=== PATIENT | female | born 1950 | race Asian ===

== ENCOUNTER 2023-09-12 22:36 | Inpatient (IN) | payer OTHER, SELFPAY ==
[2023-09-12] VITALS (7 sets, daily range): BP systolic 103–150; BP diastolic 43–54; BMI 32.4; BMI 33.3
[2023-09-12 18:40] LABS: % Basophils 0.3 % (0-2); % Eosinophils 1.1 % (0-6); % Immature Granulocytes 0.2 % (0-0.5); % Monocytes 7.1 % (1.7-9.3); % Neutrophils 61.3 % (42.2-75.2); Absolute Eosinophils 0.1 10^3/uL (0-0.7); Absolute Monocytes 0.5 10^3/uL (0.1-0.6); Absolute Neutrophils 4.1 10^3/uL (1.4-6.5); Hematocrit 28.4 % (37.0-47.0); Hemoglobin 9.5 g/dL (12.0-16.0); Mean Corp Hgb Conc. 33.5 g/dL (33.0-37.0); Mean Corpuscular Hgb 28.8 pg (27.0-31.0); Mean Corpuscular Volume 86.1 fL (81.0-99.0); Mean Platelet Volume 10.5 fL (7.4-10.4); Nucleated Red Blood Cells % 0 %; Platelet Count 191 10^3/uL (130-400); Red Cell Dist. Width 13.8 % (11.5-14.5); White Blood Cell Count 6.6 10^3/uL (4.8-10.8)
--- NOTE | 2023-09-12 18:41 | ED.GENMED ---
History of Present Illness
<Brittaney Ayala PA-C - Last Filed: 09/13/23 18:23>
General
Chief Complaint: Chest Pain
Source: patient
Exam Limitations: none
Time Seen by Provider: 09/12/23 18:28
Nursing documentation reviewed up to this point in time: agreed with
Travel History
Have you had any contact with someone who has COVID-19?: No
Do you have any symptoms of coronavirus? Fever > 100 degrees, chills, cough, shortness of breath, sore throat, loss of taste or smell, muscle aches, or headache?: No
History of Present Illness
History of Present Illness:
This is a 73-year-old female with a past medical history of A-fib, CHF, insulin dependent diabetes, CAD, who is presenting to emergency department today with midsternal chest pain that started at 5 PM today. Patient reports that the pain is
constant and is a 5-6 out of 10 in severity. Patient has no associated shortness of breath, back pain, nausea, vomiting, abdominal pain, syncopal episodes. Patient states that she does have chest pain with exertion and the pain did come on when
she was walking up the stairs today. She thought this could be her typical chest pain however the pain persisted and did not resolve with rest. She took a aspirin and a nitro which provided her with some relief but her pain still persisted. She
denies recent URI symptoms, recent hospitalizations, recent illnesses. She states that she is usually active and does go to the gym, she denies recent long distance travel, recent periods of immobilization, exogenous estrogen, history of cancer.
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
Past History
<Brittaney Ayala PA-C - Last Filed: 09/13/23 18:23>
Past History
ED Past Medical History: CAD, HTN, Hypercholesterolemia and IDDM
ED Past Surgical History: Cardiac (stents) and Other (Lumbar spinal fusion)
Social History
Tobacco: Non-smoker
Alcohol: None
Drug: None
Living: with family
Family History
Family History: Hypertension and Other (father with a stroke)
Review of Systems
<Brittaney Ayala PA-C - Last Filed: 09/13/23 18:23>
Review of Systems
All Other Systems: ROS reviewed and negative except as documented in HPI and ROS
Phy Exam
<Brittaney Ayala PA-C - Last Filed: 09/13/23 18:23>
Physical Exam
Physical Exam:
General: Patient is well-appearing and is no acute distress
Skin: Warm and dry, no rashes or lesions
Cardiac: Bradycardia, otherwise regular rhythm, no murmurs
Pulm: Normal respiratory effort, no wheezes, rales, or rhonchi. Lung sounds equal on both sides.
Abdomen: No pulsatile abdominal mass, no tenderness to palpation
Peripheral vascular: 2+ dorsalis pedis and posterior tibial pulses bilaterally. No lower extremity edema.
Neuro: Alert and oriented x 3. Cranial nerves II through XII intact. No involuntary movements noted.
Scores
<Brittaney Ayala PA-C - Last Filed: 09/13/23 18:23>
Heart Score for Chest Pain Patients
STEMI patient?: No
History: Highly Suspicious
ECG: Normal
Age: >/= 65 years
Risk Factors: >/= 3 Risk Factors or History of CAD
Troponin: </= Normal Limit
Heart Score for Chest Pain Patients: 6
Heart Score Risk: 20.3% MACE over next 6 weeks
Course
<Brittaney Ayala PA-C - Last Filed: 09/13/23 18:23>
Orders/Labs/Results
Orders:
Orders
09/12/23 Dinner
Cholesterol Lowering
At Your Request: Limited Participation
Does patient need a safe tray?: No
Cholesterol Lowering: Sodium, 2 Gram
1800 morris/15 CHO Diabetic
09/12/23 18:19
Electrocardiogram (*1) Urgent
Reason for Study: Chest Pain
EKG- Treatment ONCE
09/12/23 18:26
Complete Blood Count/With Diff Urgent
Comprehensive Metabolic Panel Urgent
Prothrombin Time Urgent
Troponin I Urgent
09/12/23 18:57
CR Chest - 2 Views Urgent
Comment:
Reason For Exam: chest pain
09/12/23 19:07
Electrocardiogram (*1) Urgent
Reason for Study: Chest Pain
EKG- Treatment ONCE
Nitroglycerin Sublingual [Nitrostat (Sublingual)] 0.4 mg SL NOW STA
09/12/23 20:04
Troponin I Urgent
09/12/23 20:06
ECG [Electrocardiogram (*1)] Urgent
Reason for Study: Chest Pain
EKG- Treatment ONCE
09/12/23 21:20
CARDIOLOGY CONSULT Urgent
Consulting Provider: Markus Amin
Was physician already notified: Yes
Heparin 4,000 units IV NOW STA
Nursing to Place Non Medication Order As Directed
Physician Order: PTT 6 hours after initial start of Heparin infusion
Above order entered?: Yes
09/12/23 21:30
Heparin 12910 Units/250 ml 25,000 units in 250 ml IV PER PROTOCOL
Weight to be used for heparin protocol in kilograms (kg):: 72.8
Protocol:: Cardiac Tx/Acute Coronary
PTT Goal Range to be used:: PTT 73 to 111 seconds
Order type:: Initial
INITIAL Infusion Dose (UNITS/KG/hr) & then follow protocol:: 12 units/kg/hr
Infusion Dose in UNITS/hr & then follow protocol (UNITS/hr):: 850
INFUSION RATE in mL/hr & then follow protocol (mL/hr):: 8.5
PTT less than or equal to 64 seconds:: Increase rate by 200 units/hr (+ 2 mL/hr)
PTT 64.1 to 72.9 seconds:: Increase rate by 100 units/hr (+ 1 mL/hr)
PTT 73 to 111 seconds:: Target Range. No change in rate.
PTT 111.1 to 130.9 seconds:: Decrease rate by 100 units/hr (- 1 mL/hr)
PTT 131 to 199.9 seconds:: HOLD for 1 hr. Then decrease rate by 200 units/hr (- 2 mL/hr)
PTT greater than or equal to 200 seconds:: HOLD for 2 hrs & Notify Provider. Then decrease by 200 units/hr (-
2 mL/hr)
Lab follow-up:: Each change, PTT q6h until 2 consecutive are therapeutic. Then PTT
daily.
09/12/23 21:38
PTT Urgent
Comment: Obtain baseline before beginning heparin infusion if not already collected
09/12/23 22:00
Flush (0.9% Sodium Chloride) [Flush (Nss)] See Dose Instructions IV PER PROTOCOL
09/12/23 22:08
Admit/Transfer Patient As Directed
Co-Sign Provider:
Level of Care: Inpatient admission
Assign to:: Telemetry
Physician / Group: eliza romero
Diagnosis: cp concern acs uncontrol dm2
Reason for Telemetry: Chest Pain syndromes
Date to Stop Telemetry: 09/14/23
Time to Stop Telemetry: 11:00
Reason for Hospitalization: cp concern acs uncontrol dm2
Expected length of stay greater than two midnights?: Yes
ELOS- Estimated Length of Stay in days: 3
I certify the patient meets the requirements for IP care: Yes
Code Status As Directed
Resuscitation Status: Full Code
09/12/23 23:04
Acetaminophen [Tylenol] 650 mg PO Q4HPRN PRN
Dextrose 50%-Water [Dextrose 50% Syringe] 12.5 grams IV [id number] PRN
Glucagon [GlucaGen] 1 mg IM PRN PRN
09/12/23 23:04
VTE Contraindication Routine
VTE Mechanical Device Contraindication: Medical Contraindication
Pharmocologic Contraindication: Medical Contraindication
Comment: pt on iv heparin
Activity As Directed
Activity Level: As Tolerated
Bedside Glucose Monitoring As Directed
Frequency: AC&HS
Comment: Change to q6h if pt on TPN, tube feeding or not eating
Vital Signs As Directed
Frequency: Per unit guidelines
Ot Eval And Treat Routine
Pt Eval And Treat Routine
Activity Level: As Tolerated
09/13/23 00:39
Troponin I Q6H
09/13/23 04:21
Cardiovascular Evaluation IN AM
Complete Blood Count/With Diff IN AM
Comprehensive Metabolic Panel IN AM
Glycohemoglobin (HgbA1c) IN AM
PTT Urgent
Troponin I Q6H
09/13/23 07:30
Insulin Aspart Corrective Low [Novolog Flexpen-Low Resistance] See Protocol SC AC
09/13/23 08:00
Aspirin Low Dose EC [Aspir Low (Enteric Coated)] 81 mg PO DAILY
Candesartan Cilexetil [Atacand] 4 mg PO BID
Carvedilol [Coreg] 25 mg PO BID
Cholecalciferol (Vitamin D3) [VITAMIN D3 (cholecalciferol)] 25 mcg PO DAILY
Doxazosin Mesylate [Cardura] 2 mg PO DAILY
Ferrous Sulfate [Feosol] 325 mg PO Daily
Multivitamin [Theragran] 1 tablet PO DAILY
Pantoprazole [Protonix] 40 mg PO DAILY
Verapamil Extended Release [Calan Extended Release] 240 mg PO DAILY
09/13/23 18:00
Rosuvastatin Calcium [Crestor] 40 mg PO QPM
09/13/23 22:00
Gabapentin [Neurontin] 100 mg PO HS
Insulin Detemir Levemir [Levemir] 16 units Subcutaneous Insulin Syringe [Syringe-Insulin] 0 unit SC HS
09/14/23 06:00
Complete Blood Count/With Diff IN AM
Comprehensive Metabolic Panel IN AM
09/14/23 11:00
DC Protocol for Telemetry ONCE
09/15/23 06:00
Complete Blood Count/With Diff IN AM
Comprehensive Metabolic Panel IN AM
Abnormal Lab Results
09/12/23
18:26
RBC 3.30 L 10^6/uL
(4.20-5.40)
Hgb 9.5 L g/dL
(12.0-16.0)
Hct 28.4 L %
(37.0-47.0)
MPV 10.5 H fL
(7.4-10.4)
PT 15.0 H Sec
(11.4-14.6)
BUN 27 H mg/dl
(7-17)
Creatinine 1.6 H mg/dL
(0.6-1.0)
Glucose 269 H mg/dl
(70-99)
AST 39 H U/L
(14-36)
Total Protein 5.7 L g/dl
(6.3-8.2)
Albumin 3.0 L g/dl
(3.5-5.0)
09/12/23 18:26
09/12/23 18:26
Vital Signs
Initial and Last Documented VS:
Initial Vital Signs
Temp Pulse Resp BP Pulse Ox
97.7 F 50 16 114/49 100
09/12/23 18:22 09/12/23 18:22 09/12/23 18:22 09/12/23 18:22 09/12/23 18:22
Last Documented Vital Signs
Temp Pulse Resp BP Pulse Ox
97.6 F 43 18 104/42 97
09/13/23 15:00 09/13/23 15:00 09/13/23 15:00 09/13/23 15:00 09/13/23 15:00
<Cameron Wheeler MD - Last Filed: 09/12/23 21:30>
Orders/Labs/Results
Orders:
Orders
09/12/23 Dinner
Cholesterol Lowering
At Your Request: Limited Participation
Does patient need a safe tray?: No
Cholesterol Lowering: Sodium, 2 Gram
1800 morris/15 CHO Diabetic
09/12/23 18:19
Electrocardiogram (*1) Urgent
Reason for Study: Chest Pain
EKG- Treatment ONCE
09/12/23 18:26
Complete Blood Count/With Diff Urgent
Comprehensive Metabolic Panel Urgent
Prothrombin Time Urgent
Troponin I Urgent
09/12/23 18:57
CR Chest - 2 Views Urgent
Comment:
Reason For Exam: chest pain
09/12/23 19:07
Electrocardiogram (*1) Urgent
Reason for Study: Chest Pain
EKG- Treatment ONCE
Nitroglycerin Sublingual [Nitrostat (Sublingual)] 0.4 mg SL NOW STA
09/12/23 20:04
Troponin I Urgent
09/12/23 20:06
ECG [Electrocardiogram (*1)] Urgent
Reason for Study: Chest Pain
EKG- Treatment ONCE
09/12/23 21:20
CARDIOLOGY CONSULT Urgent
Consulting Provider: Markus Amin
Was physician already notified: Yes
Heparin 4,000 units IV NOW STA
Nursing to Place Non Medication Order As Directed
Physician Order: PTT 6 hours after initial start of Heparin infusion
Above order entered?: Yes
09/12/23 21:30
Heparin 30006 Units/250 ml 25,000 units in 250 ml IV PER PROTOCOL
Weight to be used for heparin protocol in kilograms (kg):: 72.8
Protocol:: Cardiac Tx/Acute Coronary
PTT Goal Range to be used:: PTT 73 to 111 seconds
Order type:: Initial
INITIAL Infusion Dose (UNITS/KG/hr) & then follow protocol:: 12 units/kg/hr
Infusion Dose in UNITS/hr & then follow protocol (UNITS/hr):: 850
INFUSION RATE in mL/hr & then follow protocol (mL/hr):: 8.5
PTT less than or equal to 64 seconds:: Increase rate by 200 units/hr (+ 2 mL/hr)
PTT 64.1 to 72.9 seconds:: Increase rate by 100 units/hr (+ 1 mL/hr)
PTT 73 to 111 seconds:: Target Range. No change in rate.
PTT 111.1 to 130.9 seconds:: Decrease rate by 100 units/hr (- 1 mL/hr)
PTT 131 to 199.9 seconds:: HOLD for 1 hr. Then decrease rate by 200 units/hr (- 2 mL/hr)
PTT greater than or equal to 200 seconds:: HOLD for 2 hrs & Notify Provider. Then decrease by 200 units/hr (-
2 mL/hr)
Lab follow-up:: Each change, PTT q6h until 2 consecutive are therapeutic. Then PTT
daily.
09/12/23 21:38
PTT Urgent
Comment: Obtain baseline before beginning heparin infusion if not already collected
09/12/23 22:00
Flush (0.9% Sodium Chloride) [Flush (Nss)] See Dose Instructions IV PER PROTOCOL
09/12/23 22:08
Admit/Transfer Patient As Directed
Co-Sign Provider:
Level of Care: Inpatient admission
Assign to:: Telemetry
Physician / Group: eliza romero
Diagnosis: cp concern acs uncontrol dm2
Reason for Telemetry: Chest Pain syndromes
Date to Stop Telemetry: 09/14/23
Time to Stop Telemetry: 11:00
Reason for Hospitalization: cp concern acs uncontrol dm2
Expected length of stay greater than two midnights?: Yes
ELOS- Estimated Length of Stay in days: 3
I certify the patient meets the requirements for IP care: Yes
Code Status As Directed
Resuscitation Status: Full Code
09/12/23 23:04
Acetaminophen [Tylenol] 650 mg PO Q4HPRN PRN
Dextrose 50%-Water [Dextrose 50% Syringe] 12.5 grams IV [id number] PRN
Glucagon [GlucaGen] 1 mg IM PRN PRN
09/12/23 23:04
VTE Contraindication Routine
VTE Mechanical Device Contraindication: Medical Contraindication
Pharmocologic Contraindication: Medical Contraindication
Comment: pt on iv heparin
Activity As Directed
Activity Level: As Tolerated
Bedside Glucose Monitoring As Directed
Frequency: AC&HS
Comment: Change to q6h if pt on TPN, tube feeding or not eating
Vital Signs As Directed
Frequency: Per unit guidelines
Ot Eval And Treat Routine
Pt Eval And Treat Routine
Activity Level: As Tolerated
09/13/23 00:39
Troponin I Q6H
09/13/23 04:21
Cardiovascular Evaluation IN AM
Complete Blood Count/With Diff IN AM
Comprehensive Metabolic Panel IN AM
Glycohemoglobin (HgbA1c) IN AM
PTT Urgent
Troponin I Q6H
09/13/23 07:30
Insulin Aspart Corrective Low [Novolog Flexpen-Low Resistance] See Protocol SC AC
09/13/23 08:00
Aspirin Low Dose EC [Aspir Low (Enteric Coated)] 81 mg PO DAILY
Candesartan Cilexetil [Atacand] 4 mg PO BID
Carvedilol [Coreg] 25 mg PO BID
Cholecalciferol (Vitamin D3) [VITAMIN D3 (cholecalciferol)] 25 mcg PO DAILY
Doxazosin Mesylate [Cardura] 2 mg PO DAILY
Ferrous Sulfate [Feosol] 325 mg PO Daily
Multivitamin [Theragran] 1 tablet PO DAILY
Pantoprazole [Protonix] 40 mg PO DAILY
Verapamil Extended Release [Calan Extended Release] 240 mg PO DAILY
09/13/23 18:00
Rosuvastatin Calcium [Crestor] 40 mg PO QPM
09/13/23 22:00
Gabapentin [Neurontin] 100 mg PO HS
Insulin Detemir Levemir [Levemir] 16 units Subcutaneous Insulin Syringe [Syringe-Insulin] 0 unit SC HS
09/14/23 06:00
Complete Blood Count/With Diff IN AM
Comprehensive Metabolic Panel IN AM
09/14/23 11:00
DC Protocol for Telemetry ONCE
09/15/23 06:00
Complete Blood Count/With Diff IN AM
Comprehensive Metabolic Panel IN AM
Abnormal Lab Results
09/12/23
18:26
RBC 3.30 L 10^6/uL
(4.20-5.40)
Hgb 9.5 L g/dL
(12.0-16.0)
Hct 28.4 L %
(37.0-47.0)
MPV 10.5 H fL
(7.4-10.4)
PT 15.0 H Sec
(11.4-14.6)
BUN 27 H mg/dl
(7-17)
Creatinine 1.6 H mg/dL
(0.6-1.0)
Glucose 269 H mg/dl
(70-99)
AST 39 H U/L
(14-36)
Total Protein 5.7 L g/dl
(6.3-8.2)
Albumin 3.0 L g/dl
(3.5-5.0)
09/12/23 18:26
09/12/23 18:26
Vital Signs
Initial and Last Documented VS:
Initial Vital Signs
Temp Pulse Resp BP Pulse Ox
97.7 F 50 16 114/49 100
09/12/23 18:22 09/12/23 18:22 09/12/23 18:22 09/12/23 18:22 09/12/23 18:22
Last Documented Vital Signs
Temp Pulse Resp BP Pulse Ox
97.6 F 43 18 104/42 97
09/13/23 15:00 09/13/23 15:00 09/13/23 15:00 09/13/23 15:00 09/13/23 15:00
<Brittaney Ayala PA-C - Last Filed: 09/13/23 18:23>
MDM/Problems Addressed
Differential Diagnosis Includes:
Differentials include ACS, GERD, pneumonia, pneumothorax, musculoskeletal sprain/strain
MDM/Problems Addressed:
chest pain
Chronic conditions affecting care:
Coronary artery disease, A-fib, CHF, hyperlipidemia, renal insufficiency, diabetes
Acute Exacerbation and/or Progression of Chronic Illness:
coronary artery disease
<Brittaney Ayala PA-C - Last Filed: 09/13/23 18:23>
*Pulse Oximetry
Patient hypoxic: no
*EKG
Interpreted by ED Provider?: Yes
EKG Intrepretation Date: 09/12/23
Interpretation: abnormal
Comparison EKG: changes noted (new junctional rhythm)
Heart Rate: 48
Rate: bradycardiac
Rhythm: junctional
[place]: normal axis
Interval: normal interval and normal QT interval
QRS Pattern: normal QRS
Ischemia: no ischemia
*Vacuum Technician Interpretation
Rate: bradycardiac
Interpretation: abnormal
Rhythm: junctional
*Critical Care Note
Total Time (30-74mins, 75-104mins- exclusive of procedures): Not Applicable
Data Reviewed
Review of Other/Old Records Reveals: Records (Reviewed ER physician documentation from 05/25/2021), Discharge Summary (Reviewed discharge summary from 03/27/2021) and Other (Reviewed echocardiogram from 07/27/2021)
Prescriptions/Medications Considered But Not Given:
n/a
Further Testing Considered But Not Given:
n/a
ED Attending Note
<Brittaney Ayala PA-C - Last Filed: 09/13/23 18:23>
-
Portions of this chart may have been created with voice recognition software.� Occasional wrong word or��sound alike� substitutions may have occurred due to the inherent limitations of voice recognition software.
<Cameron Wheeler MD - Last Filed: 09/12/23 21:30>
ED Attending Note
Patient seen and examined by attending physician: Yes
ED Attending Note:
HPI: 73-year-old female with a past medical history of hypertension, hyperlipidemia, diabetes, CHF, CAD status post stents who presents to the emergency department accompanied by family for evaluation of chest pain. Patient reports that she has had
intermittent chest pains over the past few weeks�she says that she notices a 'discomfort' substernal particularly when she goes to the gym to do light exercise. She says that it typically improves with rest. She says that today she walked up a
flight of stairs and developed substernal chest pain once again but it did not improve with rest and so she called EMS to bring to the hospital. She was given 324 mg chewable aspirin and 1 nitroglycerin prior to arrival and did have some relief of
her chest pain. She denies any associated shortness of breath or palpitations. She denies any nausea, vomiting, diaphoresis. She denies any other complaints. She says that she follows with Dr. Sanon for cardiology.
ROS: Positive for chest pain; negative for shortness of breath, palpitations, dizziness, diaphoresis, nausea, vomiting
Physical exam:
General: Awake, alert, oriented x3; no acute distress
Head: Normocephalic, atraumatic
Eyes: Conjunctiva normal, sclera anicteric
Throat: Airway intact, handling secretions
Neck: Trachea midline, supple without meningismus
Lungs: Clear to auscultation bilaterally, no wheezing, rales, rhonchi
Heart: Regular rate and rhythm, no murmurs, gallops, or rubs
Abd: Soft, non distended, nontender
Neuro: Cranial nerves grossly intact, speech fluid
Skin: no rash
Extremities: No edema in extremities, equal pulses in all extremities
Differential diagnosis: ACS/unstable angina, GERD, costochondritis, pulmonary embolism less likely based on full clinical picture
Medical decision makin-year-old female presents for evaluation of worsening exertional chest pains tonight had prolonged episode that improved with nitroglycerin. Vital signs here notable for bradycardia otherwise unremarkable. Physical exam
as above. EKG shows a junctional bradycardia rate in the 40s. No STEMI. She received aspirin prehospital. Plan to place an IV check labs including CBC and CMP, coags, serial troponins. Will check chest x-ray. Monitor closely reassess after the
above.
Chronic conditions affecting care: CAD�high risk for ACS
Acute exacerbation or progression of chronic illness: N/A
History source: Patient, spouse, son
Data reviewed: Records, prior labs
Medications/testing considered: N/A
Social determinants of health: N/A
Discussion with other providers: Discussed with cardiology, discussed with hospitalist
Disposition: Admission indicated
Update:
Patient's heart rate improved to the 70s repeat EKG shows sinus rhythm. Continue to monitor.
Labs reviewed: CBC shows stable anemia, CMP shows creatinine 1.6 which is stable. Troponins have been negative x 2. Chest x-ray reviewed by me no acute disease. Clinical concern will be for unstable angina with worsening exertional symptoms.
Discussed case with cardiology will start patient on heparin infusion admit to the hospital service. Case discussed with hospitalist for admission.
Discharge Plan
Departure
Patient Disposition: Admit
Date of Disposition: 09/12/23
Time of Disposition: 21:22
Admit to doctor: Kenneth
Presentation/result/management discussed w/ accepting MD/DO: Hospitalist
Discharge Problem:
Unstable angina
Interventions
Interventions:
*Risk Screen - Suicide Last Done: 09/12/23 23:39
*General Assessment Last Done: 09/12/23 18:25
*Neglect/Abuse Screening Last Done: 09/12/23 18:25
ED- Fall Risk Assessment Last Done: 09/12/23 19:15
*ED COVID-19 Vaccine History Last Done: 09/12/23 23:39
*Nursing Disposition Last Done: 09/12/23 22:45
ED- Cardiac Assessment Last Done: 09/12/23 19:15
Discharge Date and Time
Discharge Date/Time: 09/12/23 22:57
[2023-09-12 18:49] LABS: ALT (SGPT) 26 U/L (0-35); AST (SGOT) 39 U/L (14-36); Alkaline Phosphatase 96 U/L (38-126); Blood Urea Nitrogen 27 mg/dl (7-17); Calcium 8.6 mg/dl (8.4-10.2); Carbon Dioxide 22 mmol/L (22-30); Chloride 106 mmol/L (98-107); Estimated Creatinine Clearance 26 ml/min; Glucose 269 mg/dl (70-99); Potassium 4.1 mmol/L (3.5-5.1); Sodium 139 mmol/L (135-145); Total Bilirubin 0.4 mg/dl (0.2-1.3); Total Protein 5.7 g/dl (6.3-8.2); eGFR 33.42
[2023-09-12 18:59] LABS: Troponin I < 0.012 ng/ml
[2023-09-12 20:35] LABS: Troponin I < 0.012 ng/ml
[2023-09-12] MEDS: HEPARIN 4000 UNITS IV (21:41)
--- NOTE | 2023-09-12 21:41 | HPS.HSE ---
Addendum entered and electronically signed by Velia Barber MD 09/12/23 22:22:
Patient seen and examined independently with [employer] [employer] CONSULTANT. 73-year-old female past medical history of type 2 diabetes, CAD status post cardiac stents in 2005, hypertension, hyperlipidemia, chronic kidney disease, presenting with midsternal chest pain at 5 PM
today associate with exertion. Pain improved somewhat with nitroglycerin and aspirin. Patient has a history of nuclear stress test in 2020 showing small anterolateral reversible defect. She had repeat nuclear stress test in July conclusive
for ischemia. Patient appears to have possible unstable angina. Troponin negative. Trend troponins. Chest x-ray negative. EKG shows sinus rhythm with first-degree AV block without any ischemic changes. Heparin drip started. Check
echocardiogram. Cardiology consulted.
Patient is also been having labile blood sugars due to excessive oral diabetic medications in addition to insulin. Last night her blood sugar 50 and had to eat sugar. Blood sugars around 100 in the morning and around 180 in the evenings. Blood
sugar 269 here. Check hemoglobin A1c. Will hold all oral diabetic medications at this time given concern for hypoglycemia and rebounding hyperglycemia after taking sugar. Continue detemir 28 units in the morning, 16 units in the evening.
Continue insulin sliding scale. Will likely have to add Premeal insulin tomorrow.
Original Note:
Family Physician
-
Family Physician: Charles Key
Chief Complaint
-
Chest pain to back
History of Present Illness
73-year-old female complaining of midsternal chest pain that started at 5 PM today. She reports she has chest pain with exertion and pain developed when she was walking up the stairs but however persisted. She took nitroglycerin and aspirin with
some relief but pain was still present. She denies any recent fever, chills, URI. She reports she is taking metformin, Jardiance, Januvia, Levemir a.m. and p.m. and is having high and low blood sugars. She does not follow any diabetic diet. Last
night she had a blood sugar of 50 and had some sugar. This morning she felt her blood sugar was low again and drink 2 cups of lemonade with Naan. she follows with Dr. Barth from cardiology. She has past medical history of DM 2, CAD/cardiac
stents 2006 HTN, HLD, lumbar spinal fusion, chronic iron deficiency anemia.
Medical History
Past Medical History
Past Medical History: Reports Other (DM 2, CAD/cardiac stents 2005 HTN, HLD, lumbar spinal fusion, chronic iron deficiency anemia.)
Past Surgical History: Reports Other (Cholecystectomy, lumbar laminectomy, cardiac stents 2005)
Social History
Tobacco: Non-smoker
Alcohol: None
Drug: None
Personal:
Living: With Family
Employment: Retired
Family History
Family History: Other (Father CVA, mother asthma)
Allergies / Home Medications
Allergies reflects when Allergies were last updated in [facility].
Home Medications with original date entered in [facility]
Allergy/Medication List:
Allergies
Allergy/AdvReac Type Severity Reaction Status Date / Time
diphenhydramine HCl Allergy Unknown Verified 03/26/21 02:28
[From Benadryl]
Penicillins Allergy Unknown Verified 03/26/21 02:28
Sulfa (Sulfonamide Allergy Unknown Verified 03/26/21 02:28
Antibiotics)
Home Medications
insulin aspart U-100 100 unit/mL subcutaneous solution (Novolog U-100 Insulin aspart) 10 units SC BID Diabetes 06/24/13
candesartan 4 mg tablet 4 mg PO BID Blood pressure ##0 03/11/21
metformin 500 mg tablet 1,000 mg PO DAILY@0800 Diabetes 03/11/21
sitagliptin phosphate 50 mg tablet (Januvia) 100 mg PO DAILY Diabetes 03/11/21
ferrous sulfate 325 mg (65 mg iron) tablet (Iron (ferrous sulfate)) 325 mg PO Daily Supplement 03/25/21
carvedilol 12.5 mg tablet 25 mg PO BID 03/26/21
aspirin 81 mg tablet,delayed release 81 mg PO DAILY 09/12/23
cholecalciferol (vitamin D3) 25 mcg (1,000 unit) tablet (Vitamin D3) 25 mcg PO DAILY 09/12/23
doxazosin 2 mg tablet 2 mg PO DAILY 09/12/23
empagliflozin 10 mg tablet (Jardiance) 10 mg PO DAILY 09/12/23
furosemide 40 mg tablet (Lasix) 40 mg PO Q48H 09/12/23
gabapentin 100 mg capsule 100 mg PO HS 09/12/23
insulin detemir U-100 100 unit/mL (3 mL) subcutaneous pen (Levemir FlexPen) 28 unit SC BID 09/12/23
omeprazole 40 mg capsule,delayed release 40 mg PO DAILY 09/12/23
rosuvastatin 40 mg tablet (Crestor) 40 mg PO QPM 09/12/23
therapeutic multivitamin 1 tab PO DAILY 09/12/23
verapamil 240 mg tablet,extended release 240 mg PO DAILY 09/12/23
Review of Systems
-
History Source: Patient and Family
A 12 point ROS was completed and negative except as noted: Yes
Constitutional: Denies Fever or Chills
EENT: Denies Sore Throat or Runny Nose
Respiratory: Denies Cough or Trouble Breathing
Cardiac: Reports Chest Pain; Denies Diaphoresis, Palpitations or Syncope
Abdomen/GI: Denies Abdominal Pain, Nausea, Vomiting, Diarrhea, Constipated, Bloody Stools or Black Stools
: Denies Dysuria, Frequency, Flank Pain, Incontinence, Difficulty Voiding or Urgency
Musculoskeletal: Denies Joint Pain or Edema
Skin: Denies Itching or Rash
Neurological: Denies Dizzy, Headache or Weakness
Endocrine: Reports No Symptoms
Hematologic/Lymphatic: Reports No Symptoms
Psych: Reports Calm
Physical Exam
Vital Signs
Vital Signs
Temp Pulse Resp BP Pulse Ox
97.7 F 64 18 120/45 98
09/12/23 18:22 09/12/23 21:15 09/12/23 21:15 09/12/23 21:00 09/12/23 21:15
Physical Exam
General: Well Nourished, No Apparent Distress, Comfortable, Conversant and Pain (3 out of 10 midsternal to right shoulder blade); No Fever or Chills
HEENT: NormoCephalic, Anicteric, Moist mucous membranes, [place] Conjunctivae and No Ptosis
Respiratory: Clear; No Wheezes, Rales or Rhonchi
Cardiac: S1/S2 and Regular Rhythm; No Murmur, Rub, Gallop or Peripheral Edema
Breast: Deferred by me
GI: Soft, Non Tender, Non Distended, Normal Bowel Sounds and No Hepatosplenomegaly
Rectal: Deferred by Provider
Genito-urinary: Deferred by me
Musculoskeletal: No Clubbing, No Cyanosis and No Edema
Skin: Warm and Dry; No Rash
Neuro: AO x 3, No Motor Deficits and Nonfocal/grossly intact; No Slurred Speech, Facial Droop or Tremors
Psych: Calm
Laboratory Results
-
09/12/23 18:26
09/12/23 18:26
Laboratory Results
PT 15.0 Sec (11.4-14.6) H 09/12/23 18:26
INR 1.20 09/12/23 18:26
Total Bilirubin 0.4 mg/dl (0.2-1.3) 09/12/23 18:26
AST 39 U/L (14-36) H 09/12/23 18:26
ALT 26 U/L (0-35) 09/12/23 18:26
Alkaline Phosphatase 96 U/L (38-126) 09/12/23 18:26
Troponin I < 0.012 ng/ml 09/12/23 20:04
Impression/Plan
-
Impression/plan:
Admit to telemetry
#Chest pain concern for USA
CAD/cardiac stent Hx 2005
-Consult cardiology
-Trend troponins
-IV heparin drip
-Continue aspirin, beta-gigi
EKG: Sinus rhythm with first-degree AV block 68 bpm, QTc 452 MS
2D echo 04/27/2021: EF 70-75%, normal LVSF
HTN�benign
-Continue candesartan 4 mg twice daily, carvedilol 25 mg twice daily hold parameters HR less than 60
-Continue verapamil to 40 mg daily
#DM 2 with hyperglycemia uncontrolled/diabetic neuropathy
BS 269
Accu-Cheks with SSI, check HgbA1c
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
-Discussed diabetic diet with patient and family at bedside
-Oral diabetic meds Jardiance, Januvia, metformin
-Continue Levemir 28 units a.m., 16 units p.m. dinner
-Add SSI with meals low
-Continue gabapentin 100 mg at bedtime
#HLD
-Check lipid profile
-Continue Crestor 40 mg every afternoon
#Chronic anemia normocytic/iron deficiency anemia
Hgb 9.5 appears baseline
CKD stage IIIb�4
Creat 1.6 was 1.3 in 2020
DVT prophylaxis
Patient on IV heparin drip
Full code
[2023-09-12] MEDS: HEPARIN 25000 UNITS/250 ML IV (21:42)
[2023-09-12 21:53] LABS: APTT 30.8 Sec (23.4-35.0)
--- NOTE | 2023-09-12 23:30 | PTCARENOTE ---
Pt. admitted through E.D., AAO x 3, vs stable, 99% RA, NSR on monitor, Heparin gtt infusing, call alexander within reach.
[2023-09-13] VITALS (8 sets, daily range): BP systolic 103–175; BP diastolic 42–63; PULSE 63–95; O2SAT 99
[2023-09-13 01:28] LABS: Troponin I < 0.012 ng/ml
[2023-09-13 04:40] LABS: % Basophils 0.4 % (0-2); % Eosinophils 2.8 % (0-6); % Immature Granulocytes 0.3 % (0-0.5); % Lymphocytes 36.6 % (20.5-51.1); % Monocytes 7.2 % (1.7-9.3); % Neutrophils 52.7 % (42.2-75.2); Absolute Eosinophils 0.2 10^3/uL (0-0.7); Absolute Lymphocytes 2.9 10^3/uL (1.2-3.4); Absolute Monocytes 0.6 10^3/uL (0.1-0.6); Absolute Neutrophils 4.1 10^3/uL (1.4-6.5); Hematocrit 28.1 % (37.0-47.0); Hemoglobin 9.6 g/dL (12.0-16.0); Mean Corp Hgb Conc. 34.2 g/dL (33.0-37.0); Mean Corpuscular Volume 84.9 fL (81.0-99.0); Mean Platelet Volume 10.4 fL (7.4-10.4); Nucleated Red Blood Cells % 0 %; Platelet Count 200 10^3/uL (130-400); Red Blood Cell Count 3.31 10^6/uL (4.20-5.40); Red Cell Dist. Width 13.8 % (11.5-14.5); White Blood Cell Count 7.8 10^3/uL (4.8-10.8)
[2023-09-13 05:06] LABS: ALT (SGPT) 27 U/L (0-35); AST (SGOT) 31 U/L (14-36); Albumin 3.1 g/dl (3.5-5.0); Alkaline Phosphatase 78 U/L (38-126); Blood Urea Nitrogen 27 mg/dl (7-17); Calcium 9.3 mg/dl (8.4-10.2); Carbon Dioxide 25 mmol/L (22-30); Chloride 108 mmol/L (98-107); Estimated Creatinine Clearance 24 ml/min; Glucose 148 mg/dl (70-99); HDL Cholesterol 29 mg/dl; LDL Cholesterol, Calculated 24 mg/dl; Potassium 3.9 mmol/L (3.5-5.1); Sodium 143 mmol/L (135-145); Total Bilirubin 0.4 mg/dl (0.2-1.3); Total Cholesterol 75 mg/dl (50-199); Triglyceride 112 mg/dl (10-149); Very Low Density Lipoprotein 22 mg/dl (0-30); eGFR 31.08
[2023-09-13 05:15] LABS: Troponin I < 0.012 ng/ml
[2023-09-13 05:28] LABS: APTT > 200 Sec (23.4-35.0)
[2023-09-13 08:05] LABS: Glucose - Point of Care 133 mg/dl (70-99)
--- NOTE | 2023-09-13 09:29 | CON.CAR ---
Addendum entered and electronically signed by Markus Amin MD 09/13/23 10:53:
Patient seen and examined in collaboration with HOT PACKER; agree with below.
-73-year-old female with known coronary artery disease (roto-stenting of the LAD May 2002, brachytherapy and restenting 2004, proximal RCA stent 2002, ramus PTCA 2004, and stent in proximal and mid LAD May 2012); t admitted with chest pain.
-Given known coronary artery disease and symptoms highly concerning for angina with radiation to bilateral shoulders (and has been getting exercise-limiting chest pain while exercising at the gym), patient will undergo cardiac catheterization on
Friday.
-Will consult Nephrology to help monitor renal function, given CKD; should likely hold candesartan for now.
-Continue heparin drip.
-Continue high-dose rosuvastatin.
-Continue carvedilol.
-Will update echocardiogram this admission.
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
Original Note:
Consultation
Consultation Request
Date/Time Consultation Requested: 09/12/23 21:20
Date/Time Consultation Performed: 09/13/23 09:30
Requesting Provider: Dr. Wheeler
Performing Provider: JOE Whitlock for Dr. Amin
Reason for Consultation: Chest pain
Medical History
-
Chief Complaint: Chest pain
History of Present Illness:
Lissette Noland is a 73-year-old female (known to Dr. Sanon, her primary financial institution treasurer), with coronary artery disease, hypertension, dyslipidemia, type 2 diabetes mellitus, and chronic kidney disease who presented to the emergency department the
chief complaint of chest pain. Her chest pain started on evening. She was at rest. It spontaneously resolved. She then had exertional chest pain walking up the steps later in the evening. She took nitroglycerin with some relief but did
not completely resolve. She also had some issues with hypoglycemia as well. She has been chest pain-free since arrival to the emergency department. She reports it is midsternal anterior either pressure or burning sensation. It will radiate into
her shoulders. She denies associated symptoms of nausea, diaphoresis, and shortness of breath.
Past Medical History
Past Medical History: CAD, HTN, Hypercholesterolemia, NIDDM and Renal Failure (CKD)
Past Surgical History: Cholecystectomy, Gynecological and Orthopedic
Social History
Tobacco: Non-Smoker
Alcohol: None
Drug: None
Personal:
Living: With Family
Family History
Family History: Reviewed & Not Pertinent
Allergies / Home Medications
Allergy/AdvReac Type Severity Reaction Status Date / Time
diphenhydramine HCl Allergy Unknown Verified 03/26/21 02:28
[From Benadryl]
Penicillins Allergy Unknown Verified 03/26/21 02:28
Sulfa (Sulfonamide Allergy Unknown Verified 03/26/21 02:28
Antibiotics)
Medication Instructions Recorded Confirmed Type
candesartan 4 mg tablet 4 mg PO BID Blood pressure ##0 03/11/21 09/12/23 History
metformin 500 mg tablet 1,000 mg PO DAILY@0800 Diabetes 03/11/21 09/12/23 History
sitagliptin phosphate 50 mg tablet 100 mg PO DAILY Diabetes 03/11/21 09/12/23 History
(Januvia)
ferrous sulfate 325 mg (65 mg 325 mg PO Daily Supplement 03/25/21 09/12/23 History
iron) tablet (Iron (ferrous
sulfate))
carvedilol 12.5 mg tablet 25 mg PO BID 03/26/21 09/12/23 Rx
Levemir FlexPen 16 units SC DAILY@18 09/12/23 09/12/23 History
aspirin 81 mg tablet,delayed 81 mg PO DAILY 09/12/23 09/12/23 History
release
cholecalciferol (vitamin D3) 25 25 mcg PO DAILY 09/12/23 09/12/23 History
mcg (1,000 unit) tablet (Vitamin
D3)
doxazosin 2 mg tablet 2 mg PO DAILY 09/12/23 09/12/23 History
empagliflozin 10 mg tablet 10 mg PO DAILY 09/12/23 09/12/23 History
(Jardiance)
furosemide 40 mg tablet (Lasix) 40 mg PO Q48H 09/12/23 09/12/23 History
gabapentin 100 mg capsule 100 mg PO HS 09/12/23 09/12/23 History
insulin detemir U-100 100 unit/mL 28 unit SC [facility] 09/12/23 09/12/23 History
(3 mL) subcutaneous pen (Levemir
FlexPen)
omeprazole 40 mg capsule,delayed 40 mg PO DAILY 09/12/23 09/12/23 History
release
rosuvastatin 40 mg tablet (Crestor) 40 mg PO QPM 09/12/23 09/12/23 History
therapeutic multivitamin 1 tab PO DAILY 09/12/23 09/12/23 History
verapamil 240 mg tablet,extended 240 mg PO DAILY 09/12/23 09/12/23 History
release
Review of Systems
-
History Source: Patient
All other systems: Negative unless noted
Constitutional: No Symptoms
EENT: No Symptoms
Respiratory: No Symptoms
Cardiac: No Symptoms
Abdomen/GI: No Symptoms
Physical Exam
Vital Signs
Temp Pulse Resp BP Pulse Ox
98.3 F 69 20 142/51 97
09/13/23 03:20 09/13/23 03:20 09/13/23 03:20 09/13/23 03:20 09/13/23 03:20
Lab Results
09/13/23 04:21
09/13/23 04:21
Troponin I < 0.012 ng/ml 09/13/23 04:21
Physical Exam
General: Well Developed, Well Nourished, No Apparent Distress and Comfortable
HEENT: Normocephalic, Anicteric and Moist Mucous Membranes
Respiratory: Clear and Non Labored Respirations
Cardiac: S1/S2 and Regular Rhythm
Breast: Deferred by me
GI: Soft, Non Tender, Non Distended and Normal Bowel Sounds
Rectal: Deferred by Provider
Genito-urinary: No Costovertebral Tender
Musculoskeletal: No Clubbing, No Cyanosis and No Edema
Skin: Warm and Dry
Neuro: AO x 3
Hematologic/Lymphatic: No Lymphadenopathy
Psych: Calm
Impression / Plan
-
Chest pain
-Troponin <0.012 x 4
-EKG is stable
-Normal perfusion on Lexiscan nuclear stress test 07/2022
Coronary artery disease
-Stents to p/mLAD, pRCA, and ramus
-Continue aspirin and beta-gigi
CKD, Stage IIIb, she follows with Dr. Luque in the outpatient setting
HTN
-Continue medical therapy
-Intolerance: Amlodipine (felt 'unwell')
Type 2 diabetes mellitus requiring insulin with fasting hyperglycemia, HgbA1c pending
Dyslipidemia, LDL 24 on rosuvastatin 40 mg
Iron deficiency anemia, chronic and stable
Data Reviewed
-
EKG: Report Reviewed by me (Sinus rhythm, first-degree AV block, rate 68)
Radiology: Report Reviewed by me (CXR: No acute cardiopulmonary process.)
Labs: Labs Reviewed by me
Old Records: Reviewed
[2023-09-13] MEDS: LEVEMIR 0.280000000000000027 UNITS SC (09:40)
[2023-09-13] MEDS: COREG 25 MG PO (09:41)
[2023-09-13] MEDS: ASPIR LOW (ENTERIC COATED) 81 MG PO (09:41)
[2023-09-13] MEDS: NOVOLOG FLEXPEN-LOW RESISTANCE SC (09:41)
[2023-09-13] MEDS: PROTONIX 40 MG PO (09:41)
[2023-09-13] MEDS: ATACAND 4 MG PO (09:42)
[2023-09-13] MEDS: FEOSOL 325 MG PO (09:42)
[2023-09-13] MEDS: CALAN EXTENDED RELEASE 240 MG PO (09:42)
[2023-09-13] MEDS: CARDURA 2 MG PO (09:43)
[2023-09-13] MEDS: VITAMIN D3 (cholecalciferol) 25 MCG PO (09:43)
[2023-09-13] MEDS: THERAGRAN 1 TABLET PO (09:43)
[2023-09-13 11:03] LABS: Glycohemoglobin (HgbA1c) 7.2 % (4.0-5.6)
--- NOTE | 2023-09-13 11:36 | PTCARENOTE ---
Lissette Noland, 418-2 bradied down as low as 36-40, several times otherwise in the 50s. BP 103/44. I let cardiology and hospitalist know. She is feeling it, low energy. Verapamil dced. Continuing to monitor.
[2023-09-13 12:01] LABS: Glucose - Point of Care 183 mg/dl (70-99)
--- NOTE | 2023-09-13 12:20 | W.PN.HOSP.TC ---
Today's Communication/Plan
-
Monitor on tele
DC verapamil
IV hep
ARB on hold
nephro eval
Assessment / Plan
Assessment / Plan
#Chest pain concern for USA
#CAD/cardiac stent Hx 2005
-Consult cardiology
-Trop flat.
-IV heparin drip
-Continue aspirin, beta-gigi
-repeat ECHO. Stress vs. Cath on friday
-nephro c/s
-appreciate cards recs
HTN�benign
-Verapamil stopped as with bradycardia
-cont coreg
-ARB held for now if plan for cath-await nephro input
#DM 2 with hyperglycemia uncontrolled/diabetic neuropathy
BS 189
Accu-Cheks with SSI, check HgbA1c
-Consult clinical trial educator
-Oral diabetic meds Valdo Ryan, metformin
-Continue Levemir 28 units a.m., 16 units p.m. dinner
-Add SSI with meals low
-Continue gabapentin 100 mg at bedtime
#HLD
-Check lipid profile
-Continue Crestor 40 mg every afternoon
#Chronic anemia normocytic/iron deficiency anemia
Hgb 9.5 appears baseline
CKD stage IIIb�4
Creat 1.6 was 1.3 in 2020
DVT prophylaxis
Patient on IV heparin drip
Full code
Anticipated Discharge: > 48 hours
Subjective/Interval History
-
Date of Service: September 13, 2023
denies chest pain this am
Objective Data
-
Labs:
Laboratory Results
24 09/13/23
04:21 13:00
WBC 7.8
Hgb 9.6 L
Hct 28.1 L
Plt Count 200
APTT > 200 H* Pending
Sodium 143
Potassium 3.9
Chloride 108 H
Carbon Dioxide 25
BUN 27 H
Creatinine 1.7 H
Glucose 148 H
Calcium 9.3
Total Bilirubin 0.4
AST 31
ALT 27
Alkaline Phosphatase 78
Vital Signs:
Vital Signs
Temp Pulse Resp BP Pulse Ox
97.5 F 46 18 103/44 95
09/13/23 11:00 09/13/23 11:00 09/13/23 11:00 09/13/23 11:00 09/13/23 11:00
I&O
09/12/23 09/13/23 09/14/23
06:59 06:59 06:59
Intake Total 360 / 360
Balance 360 / 360
Physical Exam
-
General: Well Developed and No Apparent Distress
HEENT: Normocephalic, Atraumatic and Moist Mucous Membranes
Respiratory: Clear to Auscultation
Cardiac: Regular Rhythm and S1/S2; Negative Murmur, Rub or Gallop
GI: Soft, Nontender, Nondistended and Normal Bowel Sounds; Negative Organomegaly
Rectal: Deferred by Provider
Musculoskeletal: No Clubbing, No Cyanosis and No Edema
Skin: Negative Rash
Neuro: Awake, AO x 3, No Motor Deficits and Nonfocal/Grossly Intact
Psych: Calm
[2023-09-13 13:33] LABS: APTT 89.4 Sec (23.4-35.0)
[2023-09-13] MEDS: NOVOLOG FLEXPEN-LOW RESISTANCE 1 UNITS SC ×2 (13:34→17:34)
[2023-09-13] MEDS: NITROSTAT (SUBLINGUAL) 0.400000000000000022 MG SL (14:14)
--- NOTE | 2023-09-13 14:24 | CM ---
Patient seen bedside.
IA completed.
Patient lives with spouse and son in a multilevel home.
Patient independent prior to admission without AD.
Patient does not drive.
Patient denies hx of VN or rehab.
Patient dneies home care needs, patient is aware of CM availability shoudl needs arise.
PCP: Dr Key
Pharmacy: [facility]
Plan:home no needs anticipated.
--- NOTE | 2023-09-13 14:43 | CON.MD ---
Consultation - Medical
-
Assessment
-unstable angina
-CAD
-CKD3a (1.2)
-DM2
-DEBBIE
-Anemia
-subnephrotic proteinuria
Plan
-stop ARB
-stop SGLT2i
-suspect current Cr is a consequence of SGLT2i initiation on top of ARB
-get august labs from PCP
-ok for Cath so long as Cr is stable or improved, especially given current USA symptoms
-bicarb IVF with cath
-patient understands risk of contrast nephropathy
-[id number]
[2023-09-13 17:14] LABS: Glucose - Point of Care 180 mg/dl (70-99)
[2023-09-13] MEDS: CRESTOR 40 MG PO (17:35)
[2023-09-13 19:02] LABS: APTT 115.6 Sec (23.4-35.0)
[2023-09-13 21:45] LABS: Glucose - Point of Care 173 mg/dl (70-99)
[2023-09-13] MEDS: NEURONTIN 100 MG PO (22:23)
[2023-09-13] MEDS: LEVEMIR 0.160000000000000003 UNITS SC (22:35)
[2023-09-14 02:27] LABS: % Basophils 0.5 % (0-2); % Eosinophils 2.4 % (0-6); % Immature Granulocytes 0.3 % (0-0.5); % Monocytes 6.4 % (1.7-9.3); % Neutrophils 54.4 % (42.2-75.2); Absolute Eosinophils 0.2 10^3/uL (0-0.7); Absolute Lymphocytes 3.1 10^3/uL (1.2-3.4); Absolute Monocytes 0.6 10^3/uL (0.1-0.6); Absolute Neutrophils 4.7 10^3/uL (1.4-6.5); Hematocrit 28.8 % (37.0-47.0); Hemoglobin 9.6 g/dL (12.0-16.0); Mean Corp Hgb Conc. 33.3 g/dL (33.0-37.0); Mean Platelet Volume 10.2 fL (7.4-10.4); Nucleated Red Blood Cells % 0 %; Platelet Count 195 10^3/uL (130-400); Red Blood Cell Count 3.31 10^6/uL (4.20-5.40); Red Cell Dist. Width 13.7 % (11.5-14.5); White Blood Cell Count 8.6 10^3/uL (4.8-10.8)
[2023-09-14 02:45] LABS: APTT 97.5 Sec (23.4-35.0)
[2023-09-14 03:08] LABS: ALT (SGPT) 23 U/L (0-35); AST (SGOT) 26 U/L (14-36); Albumin 3.3 g/dl (3.5-5.0); Alkaline Phosphatase 73 U/L (38-126); Blood Urea Nitrogen 27 mg/dl (7-17); Calcium 9.3 mg/dl (8.4-10.2); Carbon Dioxide 26 mmol/L (22-30); Chloride 110 mmol/L (98-107); Estimated Creatinine Clearance 24 ml/min; Glucose 77 mg/dl (70-99); Potassium 3.6 mmol/L (3.5-5.1); Sodium 139 mmol/L (135-145); Total Bilirubin 0.4 mg/dl (0.2-1.3); eGFR 31.08
[2023-09-14 03:45] VITALS: BP 146/61
[2023-09-14 07:00] VITALS: BP 154/62
[2023-09-14 07:23] LABS: Glucose - Point of Care 75 mg/dl (70-99)
[2023-09-14 08:33] LABS: APTT 93.7 Sec (23.4-35.0)
[2023-09-14] MEDS: CARDURA 2 MG PO (09:24)
[2023-09-14] MEDS: VITAMIN D3 (cholecalciferol) 25 MCG PO (09:24)
[2023-09-14] MEDS: NOVOLOG FLEXPEN-LOW RESISTANCE SC (09:24)
[2023-09-14] MEDS: ASPIR LOW (ENTERIC COATED) 81 MG PO (09:24)
[2023-09-14] MEDS: FEOSOL 325 MG PO (09:24)
[2023-09-14] MEDS: COREG 6.25 MG PO ×2 (09:25→19:12)
[2023-09-14] MEDS: PROTONIX 40 MG PO (09:25)
[2023-09-14] MEDS: LEVEMIR 0.280000000000000027 UNITS SC (09:26)
[2023-09-14] MEDS: THERAGRAN 1 TABLET PO (09:26)
--- NOTE | 2023-09-14 10:37 | W.PN.HOSP.TC ---
Today's Communication/Plan
-
N.p.o. past midnight for tentative cath in the morning
Carvedilol dose decreased
patient may need additional agents
DC ARB and SGLT2 inhibitor
Assessment / Plan
Assessment / Plan
#Chest pain concern for USA
#CAD/cardiac stent Hx 2005
# Bradycardia
-Consult cardiology
-Trop flat.
-IV heparin drip
-Continue aspirin, beta-gigi and reduce dose of carvedilol
-Echo in the morning. Cath in the morning pending creatinine
-nephro c/s
-appreciate cards recs
HTN�benign
-Verapamil stopped as with bradycardia
-cont coreg dose decreased. Continue to monitor on telemetry.
-ARB discontinued-restarted different blood pressure meds if needed.
-Can start Procardia
#DM 2 with hyperglycemia uncontrolled/diabetic neuropathy
Accu-Cheks with SSI, check [id number]-2.2
-Consult family living educator
-Oral diabetic meds Jardiance, Januvia, metformin
-Continue Levemir 28 units a.m., 16 units p.m. dinner
-Add SSI with meals low
-Continue gabapentin 100 mg at bedtime
#HLD
-Continue Crestor 40 mg every afternoon
#Chronic anemia normocytic/iron deficiency anemia
Hgb 9.6 appears baseline
CKD stage IIIb�4
Creat 1.6 was 1.3 in 2020
Nephrology consulted. IV fluid per nephrology.
DVT prophylaxis
Patient on IV heparin drip
Full code
Anticipated Discharge: > 48 hours
Subjective/Interval History
-
Date of Service: September 14, 2023
Denies chest pain this morning
Was bradycardic earlier and yesterday
Denies lightheadedness or dizziness
Objective Data
-
Labs:
Laboratory Results
09/14/23 09/14/23 09/14/23
02:13 07:23 08:11
WBC 8.6
Hgb 9.6 L
Hct 28.8 L
Plt Count 195
APTT 97.5 H Cancelled 93.7 H
Sodium 139
Potassium 3.6
Chloride 110 H
Carbon Dioxide 26
BUN 27 H
Creatinine 1.7 H
Glucose 77
Calcium 9.3
Total Bilirubin 0.4
AST 26
ALT 23
Alkaline Phosphatase 73
Vital Signs:
Vital Signs
Temp Pulse Resp BP Pulse Ox
97.5 F 64 18 154/62 98
09/14/23 07:00 09/14/23 09:25 09/14/23 07:00 09/14/23 09:25 09/14/23 07:00
I&O
09/13/23 09/14/23 09/15/23
06:59 06:59 06:59
Intake Total 360 / 360 720 / 720
Balance 360 / 360 720 / 720
Physical Exam
-
General: Well Developed and No Apparent Distress
HEENT: Normocephalic, Atraumatic and Moist Mucous Membranes
Respiratory: Clear to Auscultation
Cardiac: Regular Rhythm and S1/S2; Negative Murmur, Rub or Gallop
GI: Soft, Nontender, Nondistended and Normal Bowel Sounds; Negative Organomegaly
Rectal: Deferred by Provider
Musculoskeletal: No Clubbing, No Cyanosis and No Edema
Skin: Negative Rash
Neuro: Awake, AO x 3, No Motor Deficits and Nonfocal/Grossly Intact
Psych: Calm
[2023-09-14 11:00] VITALS: BP 170/99
[2023-09-14 12:05] LABS: Glucose - Point of Care 202 mg/dl (70-99)
[2023-09-14] MEDS: NOVOLOG FLEXPEN-LOW RESISTANCE 2 UNITS SC (12:49)
--- NOTE | 2023-09-14 13:05 | W.PN.NEPH.PH ---
Today's Communication / Plan
-
follow BMP
Assessment/Plan
-
Assessment
-unstable angina
-CAD
-CKD3a (1.2)
-DM2
-DEBBIE
-Anemia
-subnephrotic proteinuria
Plan
-stop ARB
-stop SGLT2i
-suspect current Cr is a consequence of SGLT2i initiation on top of ARB
-get august labs from PCP
-ok for Cath tomorrow so long as Cr is stable or improved, especially given current USA symptoms
-bicarb IVF with cath-ordered
-patient understands risk of contrast nephropathy
-
-
Date of Service: September 14, 2023
CC / HPI / ROS
-
Chief Complaint:
DEBBIE
History of Present Illness:
DEBBIE/Cr unchanged at 1.7
BP stable
on heparin gtt for USA
Review of Systems:
no CP/SOB
Labs
-
Labs:
WBC 8.6 10^3/uL (4.8-10.8) 09/14/23 02:13
RBC 3.31 10^6/uL (4.20-5.40) L 09/14/23 02:13
Hgb 9.6 g/dL (12.0-16.0) L 09/14/23 02:13
Hct 28.8 % (37.0-47.0) L 09/14/23 02:13
Plt Count 195 10^3/uL (130-400) 09/14/23 02:13
Sodium 139 mmol/L (135-145) 09/14/23 02:13
Potassium 3.6 mmol/L (3.5-5.1) 09/14/23 02:13
Chloride 110 mmol/L (98-107) H 09/14/23 02:13
Carbon Dioxide 26 mmol/L (22-30) 09/14/23 02:13
BUN 27 mg/dl (7-17) H 09/14/23 02:13
Creatinine 1.7 mg/dL (0.6-1.0) H 09/14/23 02:13
eGFR 31.08 09/14/23 02:13
Glucose 77 mg/dl (70-99) 09/14/23 02:13
Calcium 9.3 mg/dl (8.4-10.2) 09/14/23 02:13
Albumin 3.3 g/dl (3.5-5.0) L 09/14/23 02:13
Physical Exam
-
Vital Signs:
Vital Signs
Temp Pulse Resp BP Pulse Ox
97.7 F 88 18 170/99 98
09/14/23 11:00 09/14/23 11:00 09/14/23 11:00 09/14/23 11:00 09/14/23 11:00
Cardiovascular:: Regular rate and rhythm
Respiratory:: Bilateral: CTA
Lung Excursion:: Normal
Abdomen:: Nontender and Soft
Bowel Sounds:: Normal
Extremity Edema:: None: Bilateral:
[2023-09-14 15:00] VITALS: BP 164/60
[2023-09-14] MEDS: HEPARIN 25000 UNITS/250 ML IV (15:28)
--- NOTE | 2023-09-14 15:41 | W.PN.CD ---
Today's Communication / Plan
-
-CAD with previous roto-stenting of the LAD May 2002, brachytherapy and restenting 2004, proximal RCA stent 2002, ramus PTCA 2004, and stent in proximal and mid LAD May 2012.
-Patient with symptoms highly concerning for angina; has had symptom-limiting exertion while at home and exercising.
-Continue aspirin, heparin drip, and beta-gigi.
-Patient will undergo cardiac catheterization tomorrow; NPO after midnight.
-Echocardiogram also ordered.
-Nephrology consulted; appreciate assistance.
-Farxiga and candesartan being held in anticipation of procedure; will monitor renal function.
Impression / Plan
-
Coronary artery disease/chest pain:
-CAD with previous roto-stenting of the LAD May 2002, brachytherapy and restenting 2004, proximal RCA stent 2002, ramus PTCA 2004, and stent in proximal and mid LAD May 2012.
-Patient with symptoms highly concerning for angina; has had symptom-limiting exertion while at home and exercising.
-Continue aspirin, heparin drip, and beta-gigi.
-Patient will undergo cardiac catheterization tomorrow; NPO after midnight.
-Echocardiogram also ordered.
CKD:
-Nephrology consulted; appreciate assistance.
-Farxiga and candesartan being held in anticipation of procedure; will monitor renal function.
HTN
-Continue medical therapy
-Intolerance: Amlodipine (felt 'unwell')
Type 2 diabetes mellitus requiring insulin with fasting hyperglycemia, HgbA1c 7.2%.
Dyslipidemia, LDL 24 --continue rosuvastatin 40 mg
Iron deficiency anemia, chronic and stable
Physical Exam
Vital Signs/Labs
Vital Signs
Temp Pulse Resp BP Pulse Ox
97.7 F 88 18 170/99 98
09/14/23 11:00 09/14/23 11:00 09/14/23 11:00 09/14/23 11:00 09/14/23 11:00
09/13/23 09/14/23 09/15/23
06:59 06:59 06:59
Actual Weight 72.32 kg
09/14/23 02:13
09/14/23 02:13
PT 15.0 Sec (11.4-14.6) H 09/12/23 18:26
INR 1.20 09/12/23 18:26
APTT 93.7 Sec (23.4-35.0) H 09/14/23 08:11
Triglycerides 112 mg/dl (10-149) 09/13/23 04:21
LDL Cholesterol, Calc 24 mg/dl 09/13/23 04:21
VLDL Cholesterol, Calc 22 mg/dl (0-30) 09/13/23 04:21
HDL Cholesterol 29 mg/dl 09/13/23 04:21
LAB Results
09/12/23 09/12/23 09/13/23
18:26 20:04 00:39
Troponin I < 0.012 < 0.012 < 0.012
09/13/23
04:21
Troponin I < 0.012
Physical Exam
Constitutional: No acute distress and Comfortable
EENT: Anicteric
Cardiovascular: Rhythm & rate is regular, Pedal edema is absent, Systolic murmur absent and S1S2 is normal
Respiratory: Respiratory effort normal and Lungs clear to auscul.
GI: Soft
Neuro/Psych: AO x 3
Other: Skin (Warm, dry, intact)
Data Reviewed
-
Date of Service: September 14, 2023
EKG: Tracing Personally Visualized and interpreted (EKG: Sinus rhythm)
Medical Tests (PFT, Pathology etc): Discussed with Patient and Discussed with Family (Multiple members at bedside)
Labs: Labs Reviewed by me
[2023-09-14 16:55] LABS: Glucose - Point of Care 161 mg/dl (70-99)
[2023-09-14] MEDS: CRESTOR 40 MG PO (17:40)
[2023-09-14] MEDS: NOVOLOG FLEXPEN-LOW RESISTANCE 300 UNITS SC (17:40)
[2023-09-14 19:00] VITALS: BP 168/60
[2023-09-14 21:39] LABS: Glucose - Point of Care 114 mg/dl (70-99)
[2023-09-14] MEDS: NEURONTIN 100 MG PO (21:54)
[2023-09-14] MEDS: LEVEMIR 0.100000000000000006 UNITS SC (21:54)
[2023-09-14] MEDS: TYLENOL 650 MG PO (23:16)
[2023-09-14 23:25] VITALS: BP 167/59
[2023-09-15] VITALS (19 sets, daily range): BP systolic 105–166; BP diastolic 49–65
[2023-09-15 06:03] LABS: Glucose - Point of Care 92 mg/dl (70-99)
[2023-09-15] MEDS: NOVOLOG FLEXPEN-LOW RESISTANCE SC ×2 (07:25→12:02)
[2023-09-15] MEDS: ASPIR LOW (ENTERIC COATED) 81 MG PO (08:02)
[2023-09-15 08:10] LABS: % Basophils 0.4 % (0-2); % Eosinophils 3.2 % (0-6); % Immature Granulocytes 0.5 % (0-0.5); % Lymphocytes 31.4 % (20.5-51.1); % Monocytes 5.9 % (1.7-9.3); % Neutrophils 58.6 % (42.2-75.2); Absolute Eosinophils 0.3 10^3/uL (0-0.7); Absolute Lymphocytes 2.6 10^3/uL (1.2-3.4); Absolute Monocytes 0.5 10^3/uL (0.1-0.6); Absolute Neutrophils 4.8 10^3/uL (1.4-6.5); Hematocrit 29.7 % (37.0-47.0); Hemoglobin 9.9 g/dL (12.0-16.0); Mean Corp Hgb Conc. 33.3 g/dL (33.0-37.0); Mean Corpuscular Hgb 28.9 pg (27.0-31.0); Mean Corpuscular Volume 86.8 fL (81.0-99.0); Mean Platelet Volume 10.5 fL (7.4-10.4); Nucleated Red Blood Cells % 0 %; Platelet Count 192 10^3/uL (130-400); Red Blood Cell Count 3.42 10^6/uL (4.20-5.40); Red Cell Dist. Width 13.4 % (11.5-14.5); White Blood Cell Count 8.1 10^3/uL (4.8-10.8)
[2023-09-15 08:38] LABS: Glucose - Point of Care 95 mg/dl (70-99)
[2023-09-15 08:47] LABS: ALT (SGPT) 21 U/L (0-35); AST (SGOT) 25 U/L (14-36); Albumin 3.2 g/dl (3.5-5.0); Alkaline Phosphatase 65 U/L (38-126); Blood Urea Nitrogen 24 mg/dl (7-17); Calcium 9.3 mg/dl (8.4-10.2); Carbon Dioxide 26 mmol/L (22-30); Chloride 108 mmol/L (98-107); Estimated Creatinine Clearance 32 ml/min; Glucose 78 mg/dl (70-99); Potassium 3.9 mmol/L (3.5-5.1); Sodium 137 mmol/L (135-145); Total Bilirubin 0.5 mg/dl (0.2-1.3); Total Protein 5.9 g/dl (6.3-8.2); eGFR 42.88
[2023-09-15] MEDS: SODIUM BICARBONATE 1150 MEQ IV (09:38)
--- NOTE | 2023-09-15 09:45 | W.PN.CD ---
Today's Communication / Plan
-
Coronary angiography this morning.
Restart dapagliflozin and candesartan tomorrow, depending on contrast load.
This will assist with HTN management.
Impression / Plan
-
Impression/Plan: 73 y/o female with extensive CAD/revascularization history (see below) admitted with symptoms concerning for unstable angina.
#Coronary artery disease/chest pain:
-CAD with previous roto-stenting of the LAD May 2002, brachytherapy and restenting 2004, proximal RCA stent 2002, ramus PTCA 2004, and stent in proximal and mid LAD May 2012.
-Patient with symptoms highly concerning for angina; has had symptom-limiting exertion while at home and exercising. Troponin < 0.012.
-Echocardiogram shows normal biventricular function.
-Continue aspirin, heparin drip, and beta-gigi.
-Coronary angiography this morning.
#HTN
-Chronic, moderately elevated.
-Intolerance: Amlodipine (felt 'unwell').
-Bradycardia overnight. Verapamil discontinued.
-Remains on carvedilol 6.25 mg BID.
#CKD:
-Baseline Creatinine 1.3-1.7.
-Nephrology consulted; appreciate assistance.
-Dapagliflozin and candesartan being held in anticipation of procedure; will monitor renal function.
#Type 2 diabetes mellitus requiring insulin with fasting hyperglycemia, HgbA1c 7.2%.
#Dyslipidemia, LDL 24 --continue rosuvastatin 40 mg.
#Iron deficiency anemia, chronic and stable.
Subjective/Interval History:
Some bradycardia overnight.
EKG shows junctional bradycardia with PACs.
Verapamil discontinued.
DATA:
TTE, 09/15/2023:
CONCLUSIONS
�Normal biventricular size and systolic function without regional wall motion
�abnormality. Estimated LVEF 60-65%.
�No significant valve disease.
�
�Compared to 04/27/21: no significant change.
Physical Exam
Vital Signs/Labs
Vital Signs
Temp Pulse Resp BP Pulse Ox
36.4 C 59 16 155/61 97
09/15/23 07:30 09/15/23 07:30 09/15/23 07:30 09/15/23 07:30 09/15/23 07:30
09/13/23 09/14/23 09/15/23
11:59 11:59 11:59
Actual Weight 72.32 kg
09/15/23 07:14
09/15/23 07:14
PT 15.0 Sec (11.4-14.6) H 09/12/23 18:26
INR 1.20 09/12/23 18:26
APTT 93.7 Sec (23.4-35.0) H 09/14/23 08:11
Triglycerides 112 mg/dl (10-149) 09/13/23 04:21
LDL Cholesterol, Calc 24 mg/dl 09/13/23 04:21
VLDL Cholesterol, Calc 22 mg/dl (0-30) 09/13/23 04:21
HDL Cholesterol 29 mg/dl 09/13/23 04:21
LAB Results
09/12/23 09/12/23 09/13/23
18:26 20:04 00:39
Troponin I < 0.012 < 0.012 < 0.012
09/13/23
04:21
Troponin I < 0.012
Physical Exam
Constitutional: No acute distress and Comfortable
EENT: Anicteric and Moist mucous membranes
Cardiovascular: Rhythm & rate is regular, Pedal edema is absent, JVD pressure is normal, S1S2 is normal and Murmur/rub/gallop absent
Respiratory: Respiratory effort normal, Lungs clear to auscul., Wheeze Absent, Crackles Absent and Rhonchi Absent
GI: Soft, Distention absent, Flat, Non tender and Normal bowel sounds
Neuro/Psych: AO x 3
Data Reviewed
-
Date of Service: September 15, 2023
Medical Decision Making: Reviewed Test Results, Independent Historian Assessment and Test Interpretation
EKG: Tracing Personally Visualized and interpreted
Echo: Report Reviewed by me
X-Ray/CT/US/MRI/NUC/PET: Image Personally Visualized and interpreted and Report Reviewed by me
Medical Tests (PFT, Pathology etc): Report Reviewed by me
Labs: Labs Reviewed by me
--- NOTE | 2023-09-15 09:51 | PTCARENOTE ---
Report given to slab miller operator and Sodium Bicarb IV hung at 200ml/hr per protocol.
--- NOTE | 2023-09-15 10:24 | W.PN.HOSP.TC ---
Today's Communication/Plan
-
.
Assessment / Plan
Assessment / Plan
Physical Exam
-
General: Well Developed and No Apparent Distress
HEENT: Normocephalic, Atraumatic, Moist Mucous Membranes.
Respiratory: Clear to Auscultation
Cardiac: Regular Rhythm and S1/S2; Negative Murmur, Rub or Gallop
GI: Soft, Nontender, Nondistended and Normal Bowel Sounds.
Rectal: No rectal bleeding noted.
Musculoskeletal: No Clubbing, No Cyanosis and No Edema
Skin: Negative Rash
Neuro: Awake, Alert, Oriented, AO x 3 and Nonfocal/Grossly Intact
Psych: Calm
# Angina / chest pain
#CAD/cardiac stent Hx 2005
# Bradycardia
-Trop flat.
-IV heparin drip, renewed
-Continue aspirin, beta-gigi and reduce dose of carvedilol
- echo showed Normal biventricular size and systolic function without regional wall motion
abnormality. Estimated LVEF 60-65%. No significant valvular disease.
-Appreciate cardiology & nephrology input.
HTN�benign
-Verapamil stopped as with bradycardia
-cont coreg dose decreased. Continue to monitor on telemetry.
-ARB discontinued-restarted different blood pressure meds if needed.
-Can start Procardia
#DM 2 with hyperglycemia uncontrolled/diabetic neuropathy
Accu-Cheks with SSI, check [id number]
-Consult health educator
-Oral diabetic meds Jardiance, Januvia, metformin
-Continue Levemir 28 units a.m., 16 units p.m. dinner
-Add SSI with meals low
-Continue gabapentin 100 mg at bedtime
#HLD
-Continue Crestor 40 mg every afternoon
#Chronic anemia normocytic/iron deficiency anemia
Hgb 9.6 appears baseline
CKD stage IIIb�4
Renal prep with sodium bicarbonate gtt
Stopped ARB & SGLT2i
Creat 1.6 was 1.3 in 2020. Creatinine 2/5 is 1.3
Nephrology consulted. IV fluid per nephrology.
DVT prophylaxis
Patient on IV heparin drip
Total time spent to see the patient, examine the patient on the floor, review data and lab results, discuss treatment plan with patient and nursing staff around 55 minutes
Anticipated Discharge: Within 24 hours
Subjective/Interval History
-
Date of Service: September 15, 2023
No chest pain
No sob
No abd pain
Objective Data
-
Labs:
Laboratory Results
09/15/23
07:14
WBC 8.1
Hgb 9.9 L
Hct 29.7 L
Plt Count 192
Sodium 137
Potassium 3.9
Chloride 108 H
Carbon Dioxide 26
BUN 24 H
Creatinine 1.3 H
Glucose 78
Calcium 9.3
Total Bilirubin 0.5
AST 25
ALT 21
Alkaline Phosphatase 65
Vital Signs:
Vital Signs
Temp Pulse Resp BP Pulse Ox
97.6 F 59 16 155/61 97
09/15/23 07:30 09/15/23 07:30 09/15/23 07:30 09/15/23 07:30 09/15/23 07:50
I&O
09/14/23 09/15/23 09/16/23
06:59 06:59 06:59
Intake Total 720 / 720 1200 / 1200
Balance 720 / 720 1200 / 1200
--- NOTE | 2023-09-15 11:31 | ITS.CL.CATH ---
Medical Officer Psychiatry - Catheterization
Cardiac Catheterization
Procedure Report:
CARDIAC CATHETERIZATION REPORT
Date of Procedure: 09/15/2023
Referring: Markus Amin M.D.
INDICATION: Known coronary artery disease, possibly unstable angina.
PROCEDURE:
1. Left heart catheterization.
2. Coronary angiography.
ACCESS:
6 [place] right common femoral artery using a modified Seldinger technique with a micropuncture kit under ultrasound guidance.
CATHETERS:
1. 5 [place] JR4.
2. 5 [place] JL 4.
HEMODYNAMIC DATA
Weight (kg): 72.1
AO (s/d/x, mmHg): 221/78/134
LV (s/x mmHg): 223/23
LEFT VENTRICULOGRAPHY: Not performed.
CORONARY ANGIOGRAPHY
Dominance: Right.
Left Main: Normal size, trifurcating vessel. There is a 20% mid vessel stenosis. There is atherosclerotic disease with mild tapering in the distal margin.
LAD: Normal size vessel giving rise to several small diagonals. There is at least 2 (possibly 3) layers of stent present throughout the proximal vessel. There is a 50% in-stent restenosis lesion culminating in a 70% napkin ring lesion in the
mid stented segment.
Ramus: Normal size vessel that supplies the majority of the anterolateral wall. There is a hazy, 50% lesion at the ostium.
Circumflex: Nondominant vessel. A stent is present in the proximal margin. The vessel is chronically subtotally occluded with NURA I flow.
RCA: Normal size, dominant vessel. A patent stent is observed in the proximal margin. There are luminal irregularities elsewhere.
INTERVENTION(S)
None.
Closure Device: 6 [place] Angio-Seal.
Radiation (mGy): 140.29
DAP (cm2.Gy): 11.8346
Fluoroscopy time (minutes): 1.6
Sedation time (minutes): 44
CONCLUSIONS
1. Right dominant circulation with a patent stent in the proximal RCA, atherosclerotic disease within the body of the left main, at least 2, possibly 3 layers of stent in the proximal LAD with a 50% in-stent restenosis lesion that culminates in a
70% napkin ring lesion in the mid stented segment, a hazy, 50% ostial ramus lesion and chronically, subtotally occluded proximal circumflex stent with NURA I flow.
2. Severe systemic hypertension.
3. Moderately elevated filling pressures (LVEDP = 23 mmHg at 72.1 kg).
RECOMMENDATIONS:
1. Expectant management after cardiac catheterization via right common femoral approach.
2. Limited weight bearing for one week.
3. Consultation with CT surgery regarding optimal revascularization strategy given numerous layers of stent within the body of the LAD and the subtotally occluded circumflex and insulin-dependent diabetes mellitus.
4. Aggressive blood pressure control.
5. Continue secondary prevention with rosuvastatin. The patient may benefit from addition of ezetimibe versus PCSK9 inhibitors in the future.
Copy to: Markus Amin M.D., Charles Key M.D.
Ellis Dillon DO, FACC, FACP
--- NOTE | 2023-09-15 11:33 | CONSULT.CT ---
Consultation
-
Date/Time Consultation Requested: 09/15/23
Date/Time Consultation Performed: 09/15/23
Requesting Provider: Dr. Dillon
Performing Provider: Gladys Mcfarland PA-C for Dr. Ruiz Patel
Reason for Consultation: CABG evaluation
Patient History
Physicians
Family Physician: Charles Key
Outpatient Python Engineer: Fab
Inpatient Python Engineer: Eloisa
History of Present Illness
Pt is a 73y/oF with PMH CAD s/p stents to LAD, RCA & RI--most recently in 2005, HTN, HLD, IDDM, CKD3 who presented to the ED with complaints of chest pressure and low heart rate after climbing a flight of stairs. This was associated with some mild
dizziness as well. Pt reports some similar chest pressure when riding the bike at the gym within the last couple of weeks. She was admitted and started on heparin gtt, troponins have been negative to date. EKG on admission was junctional in the 40s,
she has not recovered as sinus randy rhythm. [facility] today revealed MVCAD with in stent restenosis, we are asked to evaluate for CABG.
Past Medical History
Past Medical History: Other
CAD s/p stents to LAD, RCA, RI 2005
Hypertension
Hyperlipidemia
Insulin dependent diabetes mellitus type 2
CKD 3A
osteoarthritis
chronic iron deficiency anemia
Past Surgical History
Past Surgical History: Other
9. Bladder tuck surgery.
10. Bilateral breast biopsies.
11. Tubal ligation.
12. Bilateral knee injections.
13. Laminectomy.
14. Ectopic .
15. Left knee surgery.
16. Cataract surgery.
17. Cholecystectomy.
18. Hysterectomy.
19. Tonsillectomy.
20. Left inguinal hernia repair.
Family History
Father: Cause of (CVA)
Family Medical History: Early CAD (brother had WI @ age 50)
Social History
Alcohol: None
Drug: None
Tobacco: Non-Smoker
Personal:
Living: With Spouse
Allergies
Allergy/AdvReac Type Severity Reaction Status Date / Time
diphenhydramine HCl Allergy Unknown Verified 03/26/21 02:28
[From Benadryl]
Penicillins Allergy Unknown Verified 03/26/21 02:28
Sulfa (Sulfonamide Allergy Unknown Verified 03/26/21 02:28
Antibiotics)
Home Medications
Medication Instructions Recorded Confirmed Type
candesartan 4 mg tablet 4 mg PO BID Blood pressure ##0 03/11/21 09/12/23 History
metformin 500 mg tablet 1,000 mg PO DAILY@0800 Diabetes 03/11/21 09/12/23 History
sitagliptin phosphate 50 mg tablet 100 mg PO DAILY Diabetes 03/11/21 09/12/23 History
(Januvia)
ferrous sulfate 325 mg (65 mg 325 mg PO Daily Supplement 03/25/21 09/12/23 History
iron) tablet (Iron (ferrous
sulfate))
carvedilol 12.5 mg tablet 25 mg PO BID 03/26/21 09/12/23 Rx
Levemir FlexPen 16 units SC DAILY@18 09/12/23 09/12/23 History
aspirin 81 mg tablet,delayed 81 mg PO DAILY 09/12/23 09/12/23 History
release
cholecalciferol (vitamin D3) 25 25 mcg PO DAILY 09/12/23 09/12/23 History
mcg (1,000 unit) tablet (Vitamin
D3)
doxazosin 2 mg tablet 2 mg PO DAILY 09/12/23 09/12/23 History
empagliflozin 10 mg tablet 10 mg PO DAILY 09/12/23 09/12/23 History
(Jardiance)
furosemide 40 mg tablet (Lasix) 40 mg PO Q48H 09/12/23 09/12/23 History
gabapentin 100 mg capsule 100 mg PO HS 09/12/23 09/12/23 History
insulin detemir U-100 100 unit/mL 28 unit SC [facility] 09/12/23 09/12/23 History
(3 mL) subcutaneous pen (Levemir
FlexPen)
omeprazole 40 mg capsule,delayed 40 mg PO DAILY 09/12/23 09/12/23 History
release
rosuvastatin 40 mg tablet (Crestor) 40 mg PO QPM 09/12/23 09/12/23 History
therapeutic multivitamin 1 tab PO DAILY 09/12/23 09/12/23 History
verapamil 240 mg tablet,extended 240 mg PO DAILY 09/12/23 09/12/23 History
release
Review of Systems
-
History Source: Patient
General: Denies Fever, Weight Loss or Chills
HEENT: Denies Visual Changes or Dysphagia
Respiratory: Denies SOB, POWERS or Asthma
Cardiac: Reports Chest Pain and CAD; Denies Palpitations, Nausea, Diaphoresis or Edema
Abdomen/GI: Denies Abdominal Pain, Nausea or Vomiting
: Denies Dysuria, Frequency or Hematuria
Musculoskeletal: Denies Myalgias or Arthralgias
Skin: Denies Itching or Rash
Neurological: Reports Dizzy; Denies CVA, Syncope or Seizures
Vascular: Denies Claudication
Physical Exam
Vital Signs
Temp 97.6 F 09/15/23 07:30
Temp route: Oral 09/15/23 07:30
Pulse 59 09/15/23 07:30
Rhythm: Sinus bradycardia 09/15/23 07:50
With- Sinus bradycardia 09/13/23 08:46
Resp Rate 16 09/15/23 07:30
Blood pressure 155/61 09/15/23 07:30
Blood pressure extremity used: Left upper arm 09/15/23 07:30
Position: Lying 09/15/23 07:30
MAP (cuff-Mecca Monitor) 73 09/12/23 22:00
SaO2 97 09/15/23 07:50
Oxygen Mode of Delivery Room air 09/15/23 07:50
Pulse Ox at Rest 99 09/13/23 10:47
Can the patient verbally communicate their pain? Yes 09/15/23 00:16
Pain scale rating: Asleep 09/15/23 00:16
Actual Weight 72.32 kg 09/12/23 23:16
Body Mass Index (BMI) 33.3 09/12/23 23:16
Supine- Pulse 95 09/13/23 16:03
Sitting- Blood Pressure 175/62 09/13/23 10:47
Sitting- Pulse 63 09/13/23 10:47
Labs
09/15/23 07:14
09/15/23 07:14
PT 15.0 Sec (11.4-14.6) H 09/12/23 18:26
APTT 93.7 Sec (23.4-35.0) H 09/14/23 08:11
Hemoglobin A1c 7.2 % (4.0-5.6) H 09/13/23 04:21
Troponin I < 0.012 ng/ml 09/13/23 04:21
Diagnostic Studies
09/15/23:
CORONARY ANGIOGRAPHY
Dominance:� Right.
Left Main:� Normal size, trifurcating vessel.� There is a 20% mid vessel stenosis.� There is atherosclerotic disease with mild tapering in the distal margin.
LAD:� Normal size vessel giving rise to several small diagonals.� There is at least 2 (possibly 3) layers of stent present throughout the proximal vessel.� There is a 50% in-stent restenosis lesion culminating in a 70% napkin ring lesion in the mid
stented segment.
Ramus: Normal size vessel that supplies the majority of the anterolateral wall.� There is a hazy, 50% lesion at the ostium.
Circumflex:� Nondominant vessel.� A stent is present in the proximal margin.� The vessel is chronically subtotally occluded with NURA I flow.
RCA:� Normal size, dominant vessel.� A patent stent is observed in the proximal margin.� There are luminal irregularities elsewhere.
Exam
General: Well Developed, Well Nourished and No Apparent Distress
HEENT: Normocephalic and Anicteric
Neck: Trachea Midline; Negative Carotid Bruit
Respiratory: Clear; Negative Wheezes, Crackles or Rhonchi
Cardiac: Regular Rhythm; Negative Murmur, Rub or Gallop
GI: Soft, Non Tender and Non Distended
Rectal: Deferred by Provider
Skin: Warm and Dry
Neuro: Nonfocal/Grossly Intact
Extremities: Pulses (Radials & DPs 2+ b/l; R groin access nontender/no hematoma, dressing c/d/i); Negative Lower Level Edema
Psych: Calm
Assessment / Plan
-
Unstable angina
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
- I had a brief discussion with patient regarding ongoing discussions of PCI vs CABG. Cardiac surgery attending to evaluate further this afternoon. At this time I will initiate routine preoperative studies including US carotids, type & screen. CXR
in ED without acute abnormalities.
Procedure Type:�Isolated CABG
PERIOPERATIVE OUTCOME ESTIMATE %
Operative Mortality 3.02%
Morbidity & Mortality 12.9%
Stroke 1.2%
Renal Failure 5.22%
Reoperation 2.2%
Prolonged Ventilation 6.34%
Deep Sternal Wound Infection 0.589%
Long Hospital Stay (>14 days) 8.35%
Short Hospital Stay (<6 days)* 26.4%
Clinical Summary
Planned Surgery: Isolated CABG, Urgent, First cardiovascular surgery
Demographics: 73 year old, female, 72.3kg, 147cm, BMI: 33.5 kg/m�
Lab Values: Creatinine: 1.6 mg/dL, Hematocrit: 29.7%, WBC Count: 8.1 10�/�L, Platelet Count: 411724 cells/�L
PreOp Medications: Insulin diabetes control
Substance Abuse: Never smoker
Risk Factors / Comorbidities: Insulin-dependent Diabetes Mellitus, Hypertension, Family Hx of CAD
Cardiac Status: Ejection Fraction = 60%
Coronary Artery Disease: 2 vessels diseased, Unstable Angina
Valve Disease: Mild MR, Mild TR
Data Reviewed
-
EKG: Tracing Personally Visualized and interpreted
Brick Dropper: Report Reviewed by me
Echo: Report Reviewed by me
Radiology: Image Personally Visualized and interpreted
Labs: Labs Reviewed by me
[2023-09-15 12:01] LABS: Glucose - Point of Care 120 mg/dl (70-99)
[2023-09-15] MEDS: THERAGRAN PO (12:16)
[2023-09-15] MEDS: FEOSOL PO (12:16)
[2023-09-15] MEDS: VITAMIN D3 (cholecalciferol) PO (12:16)
[2023-09-15] MEDS: COREG 6.25 MG PO ×2 (12:22→19:55)
[2023-09-15] MEDS: PROTONIX 40 MG PO (12:22)
[2023-09-15] MEDS: CARDURA 2 MG PO (12:22)
--- NOTE | 2023-09-15 12:43 | PTCARENOTE ---
Received pt from laborer cook house. AOx3, no complaints of pain. nitro gtt infusing per protocol. bicarb gtt infusing per order. Right groin CDI. Pt educated on expected OOB time. Oriented to room and unit. Son at bedside. Call alexander within reach.
--- NOTE | 2023-09-15 12:59 | CM ---
Chart reviewed. Patient was lying in bed with family at bedside. Patient is independent of ADLS, lives with her and adult son in a multilevel house, 0 DME. Plan is for the patient to return home. CM to follow
--- NOTE | 2023-09-15 15:11 | W.PN.NEPH.PH ---
Today's Communication / Plan
-
follow bmp
Assessment/Plan
-
Assessment
-unstable angina
-CAD
-CKD3a (1.2)
-DM2
-DEBBIE
-Anemia
-subnephrotic proteinuria
Plan
-stopped ARB
-stopped SGLT2i
-suspect current Cr is a consequence of SGLT2i initiation on top of ARB
-creatinine is now down to baseline
-ok for Cath todayso long as Cr is stable or improved, especially given current USA symptoms
-s/p bicarb IVF with cath-ordered
-patient understands risk of contrast nephropathy
-
-
Date of Service: September 15, 2023
CC / HPI / ROS
-
Chief Complaint:
DEBBIE
History of Present Illness:
DEBBIE/Cr down to 1.3
s/p cardiac cath 09/15/23: LVEDP ~23
BP stable
on heparin gtt for USA
Review of Systems:
no CP/SOB
Labs
-
Labs:
WBC 8.1 10^3/uL (4.8-10.8) 09/15/23 07:14
RBC 3.42 10^6/uL (4.20-5.40) L 09/15/23 07:14
Hgb 9.9 g/dL (12.0-16.0) L 09/15/23 07:14
Hct 29.7 % (37.0-47.0) L 09/15/23 07:14
Plt Count 192 10^3/uL (130-400) 09/15/23 07:14
Sodium 137 mmol/L (135-145) 09/15/23 07:14
Potassium 3.9 mmol/L (3.5-5.1) 09/15/23 07:14
Chloride 108 mmol/L (98-107) H 09/15/23 07:14
Carbon Dioxide 26 mmol/L (22-30) 09/15/23 07:14
BUN 24 mg/dl (7-17) H 09/15/23 07:14
Creatinine 1.3 mg/dL (0.6-1.0) H 09/15/23 07:14
eGFR 42.88 09/15/23 07:14
Glucose 78 mg/dl (70-99) 09/15/23 07:14
Calcium 9.3 mg/dl (8.4-10.2) 09/15/23 07:14
Albumin 3.2 g/dl (3.5-5.0) L 09/15/23 07:14
Physical Exam
-
Vital Signs:
Vital Signs
Temp Pulse Resp BP Pulse Ox
97.4 F 68 16 113/52 97
09/15/23 11:55 09/15/23 14:45 09/15/23 11:55 09/15/23 14:00 09/15/23 14:30
Cardiovascular:: Regular rate and rhythm
Respiratory:: Bilateral: CTA
Lung Excursion:: Normal
Abdomen:: Nontender
Bowel Sounds:: Normal
Extremity Edema:: None: Bilateral:
--- NOTE | 2023-09-15 15:23 | W.PN.UPDATE ---
Update Note
Progress Note Update
Pt seen and examined
Family present
73 y/o with USA
hx/o pci
Cath today with LAD isr, as well as 50%ramus
Echo with preserved ef
Comorbidities include hytn, dm, ckd
I agree cabg to lad/ramus ?cx is otimal therapy for symtom control and mortality benefit
Risks compications benefits and alternatives discussed with pt and family
All agree
all questions answered
On OR schedule for tomorrow am.
[2023-09-15 15:43] LABS: INR 1.12; PT 14.3 Sec (11.4-14.6)
--- NOTE | 2023-09-15 15:46 | CM ---
Preoperative and postoperative teaching, along with showering instructions done with the patient and her family. Patient is independent of ADLS, lives with her and adult son in a 2 STH, 0 DME. Patient is agreeable to a home visit by CT
proof carrier. Plan is for the patient to return home with CT Transitional RN.
[2023-09-15 17:35] LABS: Glucose - Point of Care 157 mg/dl (70-99)
[2023-09-15] MEDS: NOVOLOG FLEXPEN-LOW RESISTANCE 1 UNITS SC (17:44)
[2023-09-15] MEDS: CRESTOR 40 MG PO (17:45)
--- NOTE | 2023-09-15 20:00 | PTCARENOTE ---
Pt received from cassidy RN. Walking rounds completed. Pt AAOx4. HERNANDEZ. Following commands appropriately. Pt SR on monitor. HR 60s. BP 156/52. Bilateral radial and DP pulses palpable. Trace LE edema. Pt on RA. POX 98%. + BS. No c/o nausea at this
time. Right hand PIV CDI and flushes. Left hand PIV CDI and flushes. Right fem artery cath site intact, soft/nontender. Right leg warm, appropriate color, DP pulse palpable, and cap refill <2 seconds. Pt resting comfortably in the chair at this
time. Pt in agreement with plan for the night and prep for surgery. Family in the room. No c/o pain at this time. Call alexander within reach. See work-list for full nursing assessment and interventions.
[2023-09-15 21:44] LABS: Glucose - Point of Care 210 mg/dl (70-99)
[2023-09-15] MEDS: NEURONTIN 100 MG PO (21:59)
[2023-09-15] MEDS: LEVEMIR 0.100000000000000006 UNITS SC (21:59)
--- NOTE | 2023-09-15 22:15 | PTCARENOTE ---
CHG bath given. Pt gown, tele leads, and linens changed. Pt assisted OOB to the bathroom. Pt repositioned back in bed. Pt remains sinus rhythm to sinus randy on the monitor. HR 55-60s. BP 150s/60s. No c/o pain at this time. Call alexander within reach.
--- NOTE | 2023-09-15 23:53 | W.PN.CT ---
Assessment / Plan
-
Assessment:
-S/p Off pump cabg x 2 (arambula- lad, ia-ygw-)/REVH/TTFM/ LAAL (#35 clip)/Rigid sternal fixation, by Dr. Patel, 09/16/23, pod#1� � � � � � � � �
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
-Hx CAD S/P PCI with stents to prox LAD, Cx and RCA, 2005
-[place]
-Preop bradycardia (sinus, 53 bpm)
-LVEF 60% per intraop JAMA
-Mild TR
-Hypertension
-Hyperlipidemia
-Class 1 obesity (BMI 33.3)
-Insulin dependent diabetes mellitus type 2 (A1C 7.2)
-CKD 3a
-Osteoarthritis
-Chronic iron deficiency anemia
-S/P Bladder tuck surgery
-S/P Bilateral breast biopsies
-S/p Tubal ligation
-S/p Hysterectomy
-S/p Ectopic
-S/P Bilateral knee injections
-S/p Laminectomy
-S/P Left knee surgery
-S/P Left inguinal hernia repair
-S/p Cataract surgery
-S/p Cholecystectomy
-S/p Tonsillectomy
-Acute intraop/postop blood loss on chronic anemia (transfused 1u PRBC)
-Acute postop thrombocytopenia (stable without active bleed)
-Acute postop atelectasis/pleural effusion
-Acute postop hypovolemia
Plan:
-No major issues overnight. Hemodynamically and neurologically intact
-Successfully extubated on 09/16/23 @ 1730
-Weaned off Levophed gtt last night @ 2300, remains on LR @ 80 mL/hr and insulin gtt per protocol
-Last CI, 24hr u/o
-Monitor chest tube output: L pleural , med , will d/c med and transition pleurals to bulb suction
-Cont. current meds (ASA, Amiodarone, Lopressor-will transition to Coreg, Crestor; will add Plavix)
-D/C'd swan and a-line @
-D/C Franklin catheter
-Transfer to tele phase tomorrow when off insulin gtt; medical educator/management follow up
-Maintain cordis
-Maintain temporary pacer wire (will cut before d/c home)
-Encourage use of IS
-Wean off O2 as tolerated
-OOB into chair/Ambulate in room
Subjective
-
Date of Service: September 15, 2023
Objective Data
-
Lab Results
09/15/23 07:14
09/15/23 07:14
PT 14.3 Sec (11.4-14.6) 09/15/23 15:23
INR 1.12 09/15/23 15:23
APTT 93.7 Sec (23.4-35.0) H 09/14/23 08:11
Vital Signs
Vital Signs
Temp Pulse Resp BP Pulse Ox
97.7 F 62 16 156/52 98
09/15/23 19:53 09/15/23 19:55 09/15/23 19:53 09/15/23 19:55 09/15/23 20:31
CT Intake/Output/Weight
09/15/23 09/15/23 09/16/23
06:59 18:59 06:59
Intake Total 480 / 1200
Balance 480 / 1200
SaO2: 98
[2023-09-16] VITALS (32 sets, daily range): BP systolic 65–174; BP diastolic 41–86; BMI 32.4
--- NOTE | 2023-09-16 00:15 | PTCARENOTE ---
Previous assessment unchanged. Pt remains SR to sinus randy on monitor. HR 55-60s. BP 160/60. Pt on RA. POX 98%. Pt resting in bed at this time. No c/o pain at this time. Call alexander within reach.
[2023-09-16 04:12] LABS: Hematocrit 30.8 % (37.0-47.0); Hemoglobin 10.5 g/dL (12.0-16.0); Mean Corp Hgb Conc. 34.1 g/dL (33.0-37.0); Mean Corpuscular Hgb 28.8 pg (27.0-31.0); Mean Corpuscular Volume 84.6 fL (81.0-99.0); Mean Platelet Volume 10.3 fL (7.4-10.4); Platelet Count 212 10^3/uL (130-400); Red Blood Cell Count 3.64 10^6/uL (4.20-5.40); Red Cell Dist. Width 13.6 % (11.5-14.5); White Blood Cell Count 8.6 10^3/uL (4.8-10.8)
--- NOTE | 2023-09-16 04:15 | PTCARENOTE ---
Pt re-assessed. Pt remains sinus rhythm to sinus randy on the monitor. HR 55-60s. BP 160/53. Pt maintained on RA. POX 99%. Labs drawn and sent. Pt assisted OOB to void and then repositioned back into bed. No c/o pain at this time. Call alexander within
reach.
[2023-09-16 04:32] LABS: Blood Urea Nitrogen 28 mg/dl (7-17); Calcium 9.8 mg/dl (8.4-10.2); Carbon Dioxide 29 mmol/L (22-30); Chloride 102 mmol/L (98-107); Estimated Creatinine Clearance 29 ml/min; Glucose 125 mg/dl (70-99); Potassium 4.2 mmol/L (3.5-5.1); Sodium 138 mmol/L (135-145); eGFR 39.23
--- NOTE | 2023-09-16 04:45 | PTCARENOTE ---
Pt given second CHG soap bath and wiped w/ CHG clothe wipes. Pt gown/linen/and tele leads changed. Weight obtained. BP obtained from R/L upper extremities.
[2023-09-16 06:04] LABS: Glucose - Point of Care 125 mg/dl (70-99)
[2023-09-16] MEDS: MAGNESIUM OXIDE 500 MG PO (06:05)
[2023-09-16] MEDS: PROTONIX 40 MG PO (06:06)
[2023-09-16] MEDS: BACTROBAN 2% OINTMENT 1 APPLIC NASAL ×2 (06:06→19:36)
[2023-09-16] MEDS: LOPRESSOR 12.5 MG PO (06:08)
--- NOTE | 2023-09-16 06:41 | W.PN.HOSP.TC ---
Today's Communication/Plan
-
.
Assessment / Plan
Assessment / Plan
Physical Exam
-
General: Well Developed and No Apparent Distress
HEENT: Normocephalic, Atraumatic, Moist Mucous Membranes.
Respiratory: Clear to Auscultation
Cardiac: Regular Rhythm and S1/S2; Negative Murmur, Rub or Gallop
GI: Soft, Nontender, Nondistended and Normal Bowel Sounds.
Rectal: No rectal bleeding noted.
Musculoskeletal: No Clubbing, No Cyanosis and No Edema
Skin: Negative Rash
Neuro: Awake, Alert, Oriented, AO x 3 and Nonfocal/Grossly Intact
Psych: Calm
# Unstable angina with multivessel coronary artery disease status post/ chest pain/ cardiac stent Hx
Status post cardiac catheterization 07/15/24 that showed multi vessel coronary artery disease with in-stent restenosis of middle LAD
-Trop flat.
-IV heparin drip was given
-Continue aspirin, beta-gigi and reduce dose of carvedilol
- echo showed Normal biventricular size and systolic function without regional wall motion
abnormality. Estimated LVEF 60-65%. No significant valvular disease.
-Plan for coronary bypass 09/16
-Appreciate cardiology & cardiac surgery and nephrology input.
HTN�benign
-Verapamil stopped as with bradycardia
-cont coreg dose decreased. Continue to monitor on telemetry.
-ARB discontinued-restarted different blood pressure meds if needed.
-Can start Procardia
#DM 2 with hyperglycemia uncontrolled/diabetic neuropathy
Accu-Cheks with SSI, QuxV0l-2.2
-Holding oral medications include Jardiance, Januvia, metformin
# Diabetic neuropathy, continue with gabapentin
#HLD
-Continue Crestor 40 mg every afternoon
#Chronic anemia normocytic/iron deficiency anemia
Hemoglobin around 9-10
CKD stage IIIb�4
Renal prep with sodium bicarbonate gtt before catheterization.
Stopped ARB & SGLT2i
Creat 1.6 was 1.3 in 2020. Creatinine 2/6 is 1.4
Nephrology consulted. IV fluid per nephrology.
Total time spent to see the patient, examine the patient on the floor, review data and lab results, discuss treatment plan with patient and nursing staff around 55 minutes
Anticipated Discharge: > 48 hours
Subjective/Interval History
-
Date of Service: September 16, 2023
No chest pain
No sob
Objective Data
-
Labs:
Laboratory Results
09/16/23
03:52
WBC 8.6
Hgb 10.5 L
Hct 30.8 L
Plt Count 212
Sodium 138
Potassium 4.2
Chloride 102
Carbon Dioxide 29
BUN 28 H
Creatinine 1.4 H
Glucose 125 H
Calcium 9.8
Vital Signs:
Vital Signs
Temp Pulse Resp BP Pulse Ox
97.8 F 71 16 166/86 99
09/16/23 04:01 09/16/23 06:08 09/16/23 04:01 09/16/23 06:08 09/16/23 04:01
I&O
09/14/23 09/15/23 09/16/23
06:59 06:59 06:59
Intake Total 720 / 720 1200 / 1200
Balance 720 / 720 1200 / 1200
--- NOTE | 2023-09-16 06:45 | W.CVOR.SURPR ---
[facility]OR Surgeon Immed Pre Op
-
I have examined this patient prior to performance of the scheduled procedure.
The patient's condition is unchanged from the time of the dictated/written History and
Physical and the patient is able to undergo the scheduled procedure.
[2023-09-16 07:50] LABS: ACT+ - POC 90 Seconds (82-134)
[2023-09-16 07:54] LABS: B.E. - POC 0.2 mmol/L; Glucose - POC 131 mg/dl (65-99); HCO3 - POC 26 mmol/L (21-29); Hematocrit - POC 30 % PCV (37-47); Hemodilution- POC Yes; Hemoglobin Calculated - POC 10.4; O2 Saturation %Calculated-POC 99.9 5 (92-96); PCO2 - POC 44 mmHg (35-45); PO2 - POC 368 mmHg (80-100); Potassium - POC 3.8 mmol/L (3.6-5.0); Sodium - POC 142 mmol/L (135-145); pH - POC 7.38 (7.35-7.45)
--- NOTE | 2023-09-16 08:10 | CM ---
Reviewed chart. Mrs. Noland is the operating room today. Prior to admission she resides with her spouse and son in a two story home. Prior to admission she was independent with ambulation and adls. She does not have any DME in the home. Medical
work-up in progress. The discharge plan is to return home with her spouse and son with a home visit by the Cardiothoracic Transitional Care Nurse when medically stable.
[2023-09-16 08:15] LABS: Urine Albumin Trace (Neg - Trace); Urine Bilirubin Negative (Negative); Urine Character Clear (Clear); Urine Color Straw; Urine Glucose 2+ (Negative); Urine Ketone Negative (Negative); Urine Leukocyte Negative (Negative); Urine Nitrite Negative (Negative); Urine Occult Blood Negative (Negative); Urine Urobilinogen Negative (Neg - 1+)
[2023-09-16 08:55] LABS: B.E. - POC -0.4 mmol/L; Glucose - POC 128 mg/dl (65-99); HCO3 - POC 25 mmol/L (21-29); Hematocrit - POC 26 % PCV (37-47); Hemodilution- POC Yes; Hemoglobin Calculated - POC 8.8; Ionized Calcium - POC 1.21 mmol/L (1.12-1.27); O2 Saturation %Calculated-POC 99.9 5 (92-96); PCO2 - POC 41 mmHg (35-45); PO2 - POC 263 mmHg (80-100); Potassium - POC 3.8 mmol/L (3.6-5.0); Sodium - POC 141 mmol/L (135-145); pH - POC 7.39 (7.35-7.45)
--- NOTE | 2023-09-16 08:57 | W.PN.NEPH.PH ---
Today's Communication / Plan
-
CABG today
follow bmp
Assessment/Plan
-
Assessment
-unstable angina
-CAD
-CKD3a (1.2)
-DM2
-DEBBIE
-Anemia
-subnephrotic proteinuria
Plan
-stopped ARB
-stopped SGLT2i
-suspect current Cr is a consequence of SGLT2i initiation on top of ARB
-creatinine is now down to baseline at 1.4 and non oliguric
-s/p Cath on 09/15, echo reviewed:fairly normal
-for CABG today
-
-
-
Date of Service: September 16, 2023
CC / HPI / ROS
-
Chief Complaint:
DEBBIE
History of Present Illness:
DEBBIE/Cr at 1.4
s/p cardiac cath 09/15/23: LVEDP ~23
BP stable
Review of Systems:
no CP/SOB this am
Labs
-
Labs:
WBC 8.6 10^3/uL (4.8-10.8) 09/16/23 03:52
RBC 3.64 10^6/uL (4.20-5.40) L 09/16/23 03:52
Hgb 10.5 g/dL (12.0-16.0) L 09/16/23 03:52
Hct 30.8 % (37.0-47.0) L 09/16/23 03:52
Plt Count 212 10^3/uL (130-400) 09/16/23 03:52
Sodium 138 mmol/L (135-145) 09/16/23 03:52
Potassium 4.2 mmol/L (3.5-5.1) 09/16/23 03:52
Chloride 102 mmol/L (98-107) 09/16/23 03:52
Carbon Dioxide 29 mmol/L (22-30) 09/16/23 03:52
BUN 28 mg/dl (7-17) H 09/16/23 03:52
Creatinine 1.4 mg/dL (0.6-1.0) H 09/16/23 03:52
eGFR 39.23 09/16/23 03:52
Glucose 125 mg/dl (70-99) H 09/16/23 03:52
Calcium 9.8 mg/dl (8.4-10.2) 09/16/23 03:52
Albumin 3.2 g/dl (3.5-5.0) L 09/15/23 07:14
Physical Exam
-
Vital Signs:
Vital Signs
Temp Pulse Resp BP Pulse Ox
97.8 F 71 16 166/86 99
09/16/23 04:01 09/16/23 06:08 09/16/23 04:01 09/16/23 06:08 09/16/23 04:01
Respiratory:: Bilateral: CTA
Lung Excursion:: Normal
Abdomen:: Nontender and Soft
Bowel Sounds:: Normal
Extremity Edema:: None: Bilateral:
Franklin Catheter: No
[2023-09-16 09:29] LABS: B.E. - POC 0.2 mmol/L; Glucose - POC 134 mg/dl (65-99); HCO3 - POC 26 mmol/L (21-29); Hematocrit - POC 27 % PCV (37-47); Hemodilution- POC Yes; Hemoglobin Calculated - POC 9.3; Ionized Calcium - POC 1.23 mmol/L (1.12-1.27); O2 Saturation %Calculated-POC 99.9 5 (92-96); PCO2 - POC 46 mmHg (35-45); PO2 - POC 291 mmHg (80-100); Potassium - POC 3.8 mmol/L (3.6-5.0); Sodium - POC 142 mmol/L (135-145); pH - POC 7.36 (7.35-7.45)
[2023-09-16 09:39] LABS: ACT+ - POC 796 Seconds (82-134)
[2023-09-16 11:07] LABS: B.E. - POC -0.8 mmol/L; Glucose - POC 159 mg/dl (65-99); HCO3 - POC 24 mmol/L (21-29); Hematocrit - POC 21 % PCV (37-47); Hemodilution- POC Yes; O2 Saturation %Calculated-POC 99.8 5 (92-96); PCO2 - POC 41 mmHg (35-45); PO2 - POC 226 mmHg (80-100); Sodium - POC 139 mmol/L (135-145); pH - POC 7.38 (7.35-7.45)
[2023-09-16 11:08] LABS: ACT+ - POC 471 Seconds (82-134)
[2023-09-16 11:12] LABS: ACT+ - POC 98 Seconds (82-134)
[2023-09-16 11:58] LABS: ACT+ - POC 109 Seconds (82-134)
[2023-09-16 12:02] LABS: B.E. - POC -3.1 mmol/L; Glucose - POC 181 mg/dl (65-99); HCO3 - POC 22 mmol/L (21-29); Hematocrit - POC 28 % PCV (37-47); Hemodilution- POC Yes; Hemoglobin Calculated - POC 9.4; Ionized Calcium - POC 1.36 mmol/L (1.12-1.27); O2 Saturation %Calculated-POC 97.9 5 (92-96); PCO2 - POC 41 mmHg (35-45); PO2 - POC 108 mmHg (80-100); Potassium - POC 4.2 mmol/L (3.6-5.0); Sodium - POC 141 mmol/L (135-145); pH - POC 7.35 (7.35-7.45)
--- NOTE | 2023-09-16 12:29 | W.PN.CT.SURG ---
CT Surgery Operative Note
-
Pre-op Diagnosis: CAD
Unstable angina
ckd
high chads vasc
Post-op Diagnosis: Same
Procedure: cabg x 2 off pump
arambula- lad
tb-rcy-
REVH
LAAL #35 clip
TTFM
sternal fixation
Primary Surgeon: Amanda
Assisting Surgeons: Derrickni - leg/chest
Specimen: None
Cultures: None
Complications / Blood Loss: None
Findings: Abundio with preserved ef pre and post revasc
LILIANE without clot, post clip complete occlusion, no flow
Good Fernanda, adequate svg
good targets,though diffuse plaque
Excellent lumbee coronary flow
TTFM excellent
--- NOTE | 2023-09-16 12:32 | CON.INTV ---
Consultation
Consultation Request
Date/Time Consultation Requested: 09/16/2023-1:45 PM
Date/Time Consultation Performed: 09/16/2023-2 PM
Requesting Provider: Cardiovascular surgery
Performing Provider: Dr. Alejandra
Reason for Consultation: Postoperative ventilator/critical care management
Medical History
-
Chief Complaint: CAD
History of Present Illness:
73-year-old female with underlying CAD, chronic kidney disease and unstable angina underwent CABG x 2-[place] seamer consulted for postoperative ventilator/critical care management 09/16/2023. The patient is seen postoperatively in the cardiovascular
intensive care unit sedated on a ventilator and review of systems was unobtainable. Operative records were reviewed. She received 1 unit transfusion. Her chest tubes are not dumping. Vital signs are stable.
Past Medical History
Past Medical History: None (Hypertension. Hyperlipidemia. Insulin-dependent type 2 diabetes. CAD status post stent to LAD, RCA 2005. Chronic kidney disease stage IIIa. Osteoarthritis. Chronic iron deficiency anemia.)
Past Surgical History: None (Bladder tuck surgery. Bilateral breast biopsies. Tubal ligation. Bilateral knee injections. Laminectomy. Ectopic . Left knee surgery. Cataract surgery. Hysterectomy. Cholecystectomy. Tonsillectomy. Left
inguinal hernia repair.)
Social History
Tobacco: Non-smoker
Alcohol: None
Drug: None
Personal:
Living: With Family
Occupational Exposures: No known asbestos exposure
Environmental Exposures: No known tuberculosis exposure
Family History
Family History: Other (Father-CVA. Brother-early CAD-[place] at 50)
Allergies / Home Medications
Allergies
Allergy/AdvReac Type Severity Reaction Status Date / Time
diphenhydramine HCl Allergy Unknown Verified 03/26/21 02:28
[From Benadryl]
Penicillins Allergy Unknown Verified 03/26/21 02:28
Sulfa (Sulfonamide Allergy Unknown Verified 03/26/21 02:28
Antibiotics)
Home Medications
Medication Instructions Recorded Confirmed Last Taken Type
candesartan 4 mg tablet 4 mg PO BID Blood pressure ##0 03/11/21 09/12/23 09/12/23 History
metformin 500 mg tablet 1,000 mg PO DAILY@0800 Diabetes 03/11/21 09/12/23 09/12/23 History
sitagliptin phosphate 50 mg tablet 100 mg PO DAILY Diabetes 03/11/21 09/12/23 09/12/23 History
(Januvia)
ferrous sulfate 325 mg (65 mg 325 mg PO Daily Supplement 03/25/21 09/12/23 Unknown History
iron) tablet (Iron (ferrous
sulfate))
carvedilol 12.5 mg tablet 25 mg PO BID 03/26/21 09/12/23 Unknown Rx
Levemir FlexPen 16 units SC DAILY@18 09/12/23 09/12/23 09/11/23 18:00 History
aspirin 81 mg tablet,delayed 81 mg PO DAILY 09/12/23 09/12/23 09/12/23 History
release
cholecalciferol (vitamin D3) 25 25 mcg PO DAILY 09/12/23 09/12/23 Unknown History
mcg (1,000 unit) tablet (Vitamin
D3)
doxazosin 2 mg tablet 2 mg PO DAILY 09/12/23 09/12/23 Unknown History
empagliflozin 10 mg tablet 10 mg PO DAILY 09/12/23 09/12/23 09/12/23 History
(Jardiance)
furosemide 40 mg tablet (Lasix) 40 mg PO Q48H 09/12/23 09/12/23 Unknown History
gabapentin 100 mg capsule 100 mg PO HS 09/12/23 09/12/23 Unknown History
insulin detemir U-100 100 unit/mL 28 unit SC [facility] 09/12/23 09/12/23 Unknown History
(3 mL) subcutaneous pen (Levemir
FlexPen)
omeprazole 40 mg capsule,delayed 40 mg PO DAILY 09/12/23 09/12/23 Unknown History
release
rosuvastatin 40 mg tablet (Crestor) 40 mg PO QPM 09/12/23 09/12/23 Unknown History
therapeutic multivitamin 1 tab PO DAILY 09/12/23 09/12/23 Unknown History
verapamil 240 mg tablet,extended 240 mg PO DAILY 09/12/23 09/12/23 09/12/23 History
release
Review of Systems
-
Unable to Obtain full review of systems at this time due to: Patient Intubation and Other (Per HPI)
Vitals / Labs / Diagnostic Testing
Vital Signs
Temp Pulse Resp BP Pulse Ox
97.8 F 71 16 166/86 99
09/16/23 04:01 09/16/23 06:08 09/16/23 04:01 09/16/23 06:08 09/16/23 04:01
Laboratory Results
09/15/23
15:23
PT 14.3
INR 1.12
Diagnostic Testing:
Physical Exam
-
Exam:
Well-nourished and well-developed in no apparent distress
HEENT-atraumatic, normocephalic, oral tracheal intubation
Heart-regular rate and rhythm-no murmurs, rubs or gallops
Chest-clear to auscultation, no wheezes, crackles, median sternotomy bandage is not removed
Abdomen soft nondistended
Extremities-no cyanosis, clubbing, edema and good peripheral pulses
Integument-intact, no rashes, lesions or ecchymosis
Neurologically not alert, not oriented, not moving any of his extremities sedated on a ventilator
Assessment
-
73-year-old female with underlying CAD, chronic kidney disease and unstable angina underwent CABG x 2-[place] seamer consulted for postoperative ventilator/critical care management 09/16/2023.
Assessment
Severe CAD with history of prior stents with unstable angina
Status post WWCA-dsm-syeh-THURMAN-LAD, ZG-KWG-yggyk to, left atrial appendage clip-Dr. Patel -09/16/2023
Anemia-hemoglobin 7.6-normocytic
Thrombocytopenia-platelet count 109
Mild hyperglycemia
Metabolic acidosis
Conditions present prior to admission:
Hypertension.
Hyperlipidemia.
Insulin-dependent type 2 diabetes.
CAD status post stent to LAD, RCA 2005.
Chronic kidney disease stage IIIa.
Osteoarthritis.
Chronic iron deficiency anemia.
Bilateral knee injections. Laminectomy. Ectopic . Left knee surgery. Cataract surgery. Hysterectomy. Cholecystectomy. Tonsillectomy. Left inguinal hernia repair.
Bladder tuck surgery. Bilateral breast biopsies. Tubal ligation.
Plan
Ventilator settings reviewed
FiO2 will be weaned
Minute ventilation will be adjusted
Arterial blood gases will be monitored
Spontaneous breathing trial will be attempted with hopeful extubation after anesthesia/sedation wear off
Pulmonary artery catheter was not placed
Pressors/antihypertensive/inotropes/diuretics will be provided as needed
Monitor chest tube output
Monitor hemoglobin
Monitor platelet count and coags
Transfuse blood product if needed
CT surgery following chest tubes
Monitor blood sugar
Insulin drip per protocol
Aspiration precautions
VAP prevention protocol
DVT prophylaxis
Early nutrition
Early mobilization
Critical care statement: A total of 46 minutes of critical care time was provided for this patient today. This includes management of ventilator, spontaneous breathing trial, arterial blood gases, pressors, of unstable vital signs, evaluation of the
patient at bedside, reviewing the patient's pertinent medical records including radiographs, microbiology, laboratory evaluations, and discussion with primary team and critical care nursing.
Diagnostic data:
Chest x-ray 09/12/2023-NAD
Chest x-ray 09/16/2023-tip of endotracheal tube at the origin the right mainstem could be retracted at least 2 cm, mild interstitial airspace disease at the left lung base subsegmental atelectasis
Echocardiogram 09/15/2023-EF 60-65%, no valvular disease
Cardiac catheterization 09/15/2023-right dominant circulation, patent stent to proximal RCA, 2-3 layers of stents in proximal LAD with a 50% in-stent restenosis that culminates in a 70% napkin ring lesion mid stented segment hazy 50% ostial ramus
lesion, moderately elevated filling pressures
Transesophageal echocardiogram 09/16/2023-EF 60%, stage I diastolic function, mild tricuspid regurgitation, mild sessile atheroma seen in the distal aortic arch
Data Reviewed
-
EKG: Report reviewed by me
Radiology: Report reviewed by me
Medical Tests (Nuc Med, Echo etc): Report reviewed by me
Old Records: Reviewed
Critical Care Time (in minutes): 46
--- NOTE | 2023-09-16 13:00 | PTCARENOTE ---
Received pt from [facility], intubated and sedated on the ventilator, via # 8 ETT at 23 cm rt lip. Vent per anesthesia. SIMV rate 12, fi02 60% psv 5 tv 350 peep 5. pulse ox 100%. NSR 60's . LT radial A line transducing, lines leveled, recalibrated
and flushed. Chest tubes x 2 to -20 cm suction. No air leaks or crepitus. Epicardial wires to back up. No pacing noted. Abdomen obese, round, hypoactive bowel sounds, morales draining clear yellow urine. RT leg with emelina wrap intact. DP pulses
palpable. surgical sites c,d,i. LEvo, precedex, insulin infusing on arrival. See flow sheets for titrations
[2023-09-16 13:10] LABS: B.E. -6.1 mmol/L; HCO3 20.2 mmol/L (21-28); Ionized Calcium 1.18 mMOL/L (1.15-1.33); O2 Saturation % 97.3 % (94-98); PCO2 43 mmHg (32-35); PO2 319 mmHg (83-108); Potassium 3.4 mMOL/L (3.5-5.1); Sodium 137 mMOL/L (136-145); pH 7.28 (7.35-7.45)
[2023-09-16 13:14] LABS: Glucose - Point of Care 185 mg/dl (70-99)
[2023-09-16 13:15] LABS: Hematocrit 22.4 % (37.0-47.0); Hemoglobin 7.6 g/dL (12.0-16.0); Platelet Count 109 10^3/uL (130-400)
[2023-09-16 13:26] LABS: INR 1.74; PT 20.2 Sec (11.4-14.6)
[2023-09-16] MEDS: CALCIUM CHLORIDE 10% SYRINGE 50 MG IV (13:35)
[2023-09-16] MEDS: CALCIUM CHLORIDE 10% SYRINGE 50 ML IV (13:35)
[2023-09-16] MEDS: KCL 50 IV ×2 (13:36→13:41)
[2023-09-16 13:38] LABS: Blood Urea Nitrogen 18 mg/dl (7-17); Estimated Creatinine Clearance 51 ml/min; Glucose 155 mg/dl (70-99); Magnesium 1.9 mg/dl (1.6-2.3)
[2023-09-16] MEDS: SODIUM BICARBONATE 100 MEQ IV (13:42)
[2023-09-16] MEDS: NSS 500 IV (13:43)
[2023-09-16] MEDS: TYLENOL PO ×3 (13:43→19:26)
[2023-09-16] MEDS: FEOSOL PO (13:45)
[2023-09-16] MEDS: NOVOLOG FLEXPEN SC ×2 (13:45→15:33)
[2023-09-16] MEDS: VITAMIN D3 (cholecalciferol) PO (13:45)
[2023-09-16 14:03] LABS: Glucose - Point of Care 180 mg/dl (70-99)
[2023-09-16] MEDS: ZINACEF 1500 MG IV ×2 (14:25)
[2023-09-16] MEDS: STERILE WATER FOR INJECTION 16 ML IV ×2 (14:25)
[2023-09-16 14:34] LABS: B.E. 3.6 mmol/L; HCO3 28.5 mmol/L (21-28); O2 Saturation % 97.7 % (94-98); PCO2 44 mmHg (32-35); PO2 122 mmHg (83-108); pH 7.42 (7.35-7.45)
--- NOTE | 2023-09-16 14:46 | PTCARENOTE ---
Endotracheal tube pulled back by Respiratory therapist to 21 cm, pt briefly coughing and biting down on tube with adjustment. Will monitor.
[2023-09-16] MEDS: ASPIRIN 300 MG RECTAL (14:48)
[2023-09-16] MEDS: MAGNESIUM SULFATE 50 IV (14:49)
[2023-09-16 15:06] LABS: Glucose - Point of Care 160 mg/dl (70-99)
[2023-09-16] MEDS: NOVOLOG FLEXPEN-LOW RESISTANCE SC ×2 (15:31)
[2023-09-16] MEDS: CARDURA PO (15:31)
[2023-09-16] MEDS: COREG PO (15:31)
[2023-09-16] MEDS: ASPIR LOW (ENTERIC COATED) PO (15:31)
[2023-09-16] MEDS: PROTONIX PO (15:32)
[2023-09-16] MEDS: THERAGRAN PO (15:32)
[2023-09-16] MEDS: NEURONTIN PO (15:33)
[2023-09-16] MEDS: CRESTOR PO (15:33)
[2023-09-16] MEDS: PACERONE PO (15:33)
--- NOTE | 2023-09-16 16:01 | PTCARENOTE ---
cpap trial initiated as patient having more spontaneous awakening moments. Pt however, remains quite sleepy. Apneic . and dozing. Will monitor.
[2023-09-16 16:03] LABS: Glucose - Point of Care 144 mg/dl (70-99)
[2023-09-16 16:09] LABS: Hematocrit 27.2 % (37.0-47.0); Hemoglobin 9.3 g/dL (12.0-16.0); Platelet Count 160 10^3/uL (130-400)
--- NOTE | 2023-09-16 16:35 | PTCARENOTE ---
Pt with more spontaneous arousal. . C/o feeling hot. Talita hugger removed, Pt turned, repositioned, back lotioned, Chest PT preformed, CHG bath wipe given. No dumping from chest tubes noted. Respiratory therapy called to try once again.
[2023-09-16] MEDS: LEVOPHED 250 IV (16:51)
[2023-09-16 17:06] LABS: Glucose - Point of Care 127 mg/dl (70-99)
[2023-09-16 17:13] LABS: B.E. -1.3 mmol/L; HCO3 24.8 mmol/L (21-28); Hemoglobin 9.8 g/dL (12.0-16.0); Ionized Calcium 1.43 mMOL/L (1.15-1.33); O2 Saturation % 97.9 % (94-98); PCO2 47 mmHg (32-35); PO2 153 mmHg (83-108); Potassium 4.9 mMOL/L (3.5-5.1); Sodium 138 mMOL/L (136-145); pH 7.33 (7.35-7.45)
[2023-09-16] MEDS: STERILE WATER FOR INJECTION 8.30000000000000071 ML IV (17:23)
[2023-09-16] MEDS: ZINACEF 750 MG IV (17:24)
[2023-09-16 17:26] LABS: Blood Urea Nitrogen 23 mg/dl (7-17); Calcium 9.5 mg/dl (8.4-10.2); Carbon Dioxide 27 mmol/L (22-30); Chloride 110 mmol/L (98-107); Estimated Creatinine Clearance 37 ml/min; Glucose 128 mg/dl (70-99); Potassium 4.9 mmol/L (3.5-5.1); Sodium 139 mmol/L (135-145)
--- NOTE | 2023-09-16 17:33 | PTCARENOTE ---
Pt more alert with CPAP wean, little to no apnea noted. ABG obtained, per protocol. Results reviewed with CT MOLDER VACUUM. Pt extubated to 6 L pulse ox 100%. Family called and updated. Levo weaned as able .
[2023-09-16 18:06] LABS: Glucose - Point of Care 121 mg/dl (70-99)
[2023-09-16] MEDS: OFIRMEV 100 IV (18:18)
[2023-09-16] MEDS: LR 1000 IV (18:32)
[2023-09-16] MEDS: SENOKOT-S PO (19:26)
[2023-09-16] MEDS: PEPCID 20 MG IV (19:36)
[2023-09-16] MEDS: NSS (PRESERVATIVE FREE) 8 ML IV (19:36)
[2023-09-16] MEDS: SODIUM BICARBONATE 50 MEQ IV (19:37)
[2023-09-16 19:56] LABS: Glucose - Point of Care 114 mg/dl (70-99)
--- NOTE | 2023-09-16 20:10 | PTCARENOTE ---
assumed care of pt from previous RN. pt drowsy, oriented x4. no c/o pain at this time. R IJ cordis w/ SLIC. L radial a-line. all lines leveled, zeroed, flushed. levo, insulin, and LR infusing. SR on tele-monitor. HR 60-70s. temp epicardial v-wires,
pacer plugged in, off. CTx2 (L pleural and mediastinal) to -20cm wall suction, draining sanguineous drainage. POX 100% on 2 L NC. tolerating ice chips. morales catheter draining sabrina urine. sternal incision w/ aquacell, CDI. R leg puncture and
incision approximated w/ surgiglue, emelina wrap present, CDI. PIV x2 intact. see worklist for complete nursing assessment, interventions, VS, and I&Os.
[2023-09-16 21:57] LABS: Glucose - Point of Care 97 mg/dl (70-99)
[2023-09-16] MEDS: FLEXERIL 5 MG PO (23:12)
[2023-09-16] MEDS: NEURONTIN 100 MG PO (23:12)
[2023-09-17] VITALS (29 sets, daily range): BP systolic 89–123; BP diastolic 40–81; PULSE 66; O2SAT 97–99; BMI 34.6
[2023-09-17] LABS: Glucose - Point of Care 101 mg/dl (70-99)
--- NOTE | 2023-09-17 | PTCARENOTE ---
assessment remains unchanged. pt denies pain at this time. levo weaned off. SR on tele-monitor, HR 60s-70s. POX 100% on [address] drainage and U/O WNL.
[2023-09-17] MEDS: TYLENOL 650 MG PO ×5 (00:49→19:19)
[2023-09-17] MEDS: STERILE WATER FOR INJECTION 8.30000000000000071 ML IV ×2 (01:55→09:51)
[2023-09-17] MEDS: ZINACEF 750 MG IV ×2 (01:56→09:51)
[2023-09-17 02:00] LABS: Glucose - Point of Care 106 mg/dl (70-99)
--- NOTE | 2023-09-17 03:29 | ECGCV ---
<Nasim Callahan CTPA> notified of ECG critical value identified by electronic interpretation on ECG completed on <09/17/23>, at <0330>.
[2023-09-17 03:39] LABS: Hematocrit 24.9 % (37.0-47.0); Hemoglobin 8.4 g/dL (12.0-16.0); Mean Corp Hgb Conc. 33.7 g/dL (33.0-37.0); Mean Corpuscular Hgb 28.7 pg (27.0-31.0); Mean Platelet Volume 10.9 fL (7.4-10.4); Platelet Count 137 10^3/uL (130-400); Red Blood Cell Count 2.93 10^6/uL (4.20-5.40); Red Cell Dist. Width 14.4 % (11.5-14.5); White Blood Cell Count 15.3 10^3/uL (4.8-10.8)
[2023-09-17 03:44] LABS: Ionized Calcium 1.31 mMOL/L (1.15-1.33)
--- NOTE | 2023-09-17 03:47 | W.PN.CT ---
Today's Communication / Plan
-
Plan:
-No major issues overnight. Hemodynamically and neurologically intact
-Successfully extubated on 09/16/23 @ 1730
-Weaned off Levophed gtt last night @ 2300, D/C'd LR @ 0430, on insulin gtt per protocol- will renew, diabetes education/management consult (A1C 7.2)
-No swan, 24hr u/o 375 mL, CKD pt, cr 1.1, was 1.4 preop. Consider hold on BB this AM- hypotensive overnight, consider gentle diuresis with 20 mg IV Lasix
-Monitor chest tube output: L pleural + med 110/365, will d/c med and transition L pleural to bulb suction
-Cont. current meds (ASA, Amiodarone, Lopressor-will transition to Coreg-hold AM dose, Crestor; will add Plavix)
-Monitor h/h 8.4/24.9, likely hemodilutional, consider 20mg IV Lasix
-Mg 2.9 this AM, Mag oxide placed on hold
-D/C'd swan and a-line @ 0415 this AM
-D/C Franklin catheter after gentle diuresis today
-Transfer to tele phase tomorrow when off insulin gtt; asthma educator/management consult
-Maintain cordis
-Maintain temporary pacer wire (will cut before d/c home)
-Encourage use of IS
-Wean off O2 as tolerated
-OOB into chair/Ambulate in room
Assessment / Plan
-
Assessment:
-S/p Off pump cabg x 2 (arambula- lad, [id number])/REVH/TTFM/ LAAL (#35 clip)/Rigid sternal fixation, by Dr. Patel, 09/16/23, pod#1� � � � � � � � �
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
-Hx CAD S/P PCI with stents to prox LAD, Cx and RCA, 2005
-[place]
-Preop bradycardia (sinus, 53 bpm)
-LVEF 60% per intraop JAMA
-Mild TR
-Hypertension
-Hyperlipidemia
-Class 1 obesity (BMI 33.3)
-Insulin dependent diabetes mellitus type 2 (A1C 7.2)
-CKD 3a
-Osteoarthritis
-Chronic iron deficiency anemia
-S/P Bladder tuck surgery
-S/P Bilateral breast biopsies
-S/p Tubal ligation
-S/p Hysterectomy
-S/p Ectopic
-S/P Bilateral knee injections
-S/p Laminectomy
-S/P Left knee surgery
-S/P Left inguinal hernia repair
-S/p Cataract surgery
-S/p Cholecystectomy
-S/p Tonsillectomy
-Acute intraop/postop blood loss on chronic anemia (transfused 1u PRBC)
-Acute postop thrombocytopenia (stable without active bleed)
-Acute postop atelectasis/pleural effusion
-Acute postop hypovolemia with subsequent hypervolemia
-Acute postop pericarditis (global ST-elevation, +rub; pt not in excruciating pain/asymptomatic)
Discussed patient care with: Cardiology, Nursing, Respiratory Therapy, Pharmacy and Care Team
Subjective
Procedure
S/p Off pump cabg x 2 (arambula- lad, [id number])/REVH/TTFM/ LAAL (#35 clip)/Rigid sternal fixation, by Dr. Patel, 09/16/23
-
Date of Service: September 17, 2023
Pt c/o mild incisional pain, otherwise feels well, ekg with acute pericarditis but appears asymptomatic
Objective Data
-
Lab Results
09/17/23 03:23
PT 20.2 Sec (11.4-14.6) H 09/16/23 13:03
INR 1.74 09/16/23 13:03
APTT 35.0 Sec (23.4-35.0) 09/16/23 13:03
Vital Signs
Vital Signs
Temp Pulse Resp BP Pulse Ox
97.4 F 66 11 113/49 100
09/17/23 03:00 09/17/23 03:15 09/17/23 03:15 09/17/23 03:00 09/17/23 03:15
CT Intake/Output/Weight
09/16/23 09/16/23 09/17/23
06:59 18:59 06:59
Intake Total 533.5 / 1409.9 876.4 / 1409.9
Output Total 440 / 695 255 / 695
Balance 93.5 / 714.9 621.4 / 714.9
SaO2: 100 (2L)
Physical Exam
-
General: Awake, Oriented and AOx3
Cardiovascular: Regular rate & rhythm, No Murmurs, Rub (acute pericarditis ) and No Gallop
Respiratory: Decreased Breath Sounds (at bases, otherwise clear)
Sternum: Stable
Incision: Clean, Dry, Intact and Dressing Intact
Extremities: Other (+trace edema)
Data Reviewed
-
Lab Results: Results Reviewed
Medications: Active Meds Reviewed
Chest X-Ray: Report Reviewed and Image Reviewed
ECG: Report Reviewed and Image Reviewed
[2023-09-17 03:49] LABS: INR 1.31; PT 16.1 Sec (11.4-14.6)
[2023-09-17 04:08] LABS: Glucose - Point of Care 76 mg/dl (70-99)
[2023-09-17 04:09] LABS: Blood Urea Nitrogen 29 mg/dl (7-17); Carbon Dioxide 28 mmol/L (22-30); Chloride 108 mmol/L (98-107); Estimated Creatinine Clearance 37 ml/min; Glucose 90 mg/dl (70-99); Magnesium 2.9 mg/dl (1.6-2.3); Potassium 4.7 mmol/L (3.5-5.1); Sodium 140 mmol/L (135-145)
--- NOTE | 2023-09-17 04:30 | PTCARENOTE ---
assessment remains unchanged. SR on tele-monitor. HR 60s-70s. POX 100% on 2 L NC. L radial a-line and SLIC d/c'd.
[2023-09-17 05:02] LABS: Glucose - Point of Care 85 mg/dl (70-99)
[2023-09-17 06:07] LABS: Glucose - Point of Care 106 mg/dl (70-99)
[2023-09-17 07:31] LABS: Glucose - Point of Care 105 mg/dl (70-99)
[2023-09-17] MEDS: NOVOLOG FLEXPEN SC ×2 (07:43→10:57)
--- NOTE | 2023-09-17 07:45 | W.PN.INTV ---
Today's Communication / Plan
Recommendations
Tolerated extubation
Wean FiO2
Incentive spirometry
Aspiration precautions
Follow hemoglobin
Transfuse as needed
deline
Continues on insulin drip-office technology instructor will continue to follow
Assessment
-
73-year-old female with underlying CAD, chronic kidney disease and unstable angina underwent CABG x 2-office technology instructor consulted for postoperative ventilator/critical care management 09/16/2023.
Assessment
Severe CAD with history of prior stents with unstable angina
Status post EWXN-byh-bgtx-THURMAN-LAD, RV-UPL-upxoz to, left atrial appendage clip-Dr. Patel -09/16/2023
Anemia-hemoglobin 7.6-normocytic
Thrombocytopenia-platelet count 109
Mild hyperglycemia
Metabolic acidosis
Conditions present prior to admission:
Hypertension.
Hyperlipidemia.
Insulin-dependent type 2 diabetes.
CAD status post stent to LAD, RCA 2005.
Chronic kidney disease stage IIIa.
Osteoarthritis.
Chronic iron deficiency anemia.
Bilateral knee injections. Laminectomy. Ectopic . Left knee surgery. Cataract surgery. Hysterectomy. Cholecystectomy. Tonsillectomy. Left inguinal hernia repair.
Bladder tuck surgery. Bilateral breast biopsies. Tubal ligation.
Plan
Tolerated extubation
Wean FiO2
Encourage incentive spirometry
Increase activity
Aspiration precautions
Pulmonary artery catheter and arterial line will be removed
Pressors have been weaned
Continue to monitor chest tube output
Follow hemoglobin
Continue to follow platelet count and coags
Transfuse blood product as needed
CT surgery following chest tubes as well
Follow blood sugar
Insulin supplementation continues as needed
Early nutrition
Early mobilization
DVT prophylaxis
Patient will be transferred to telemetry phase if weaned off insulin drip-call pulmonary if respiratory issues arise-if remains on insulin drip then office technology instructor will continue to follow while in ICU status
Reviewed the patient's pertinent medical records including radiographs, microbiology, laboratory evaluations, and discussion with primary team, and critical care nursing.
Diagnostic data:
Chest x-ray 09/12/2023-NAD
Chest x-ray 09/16/2023-tip of endotracheal tube at the origin the right mainstem could be retracted at least 2 cm, mild interstitial airspace disease at the left lung base subsegmental atelectasis
Echocardiogram 09/15/2023-EF 60-65%, no valvular disease
Cardiac catheterization 09/15/2023-right dominant circulation, patent stent to proximal RCA, 2-3 layers of stents in proximal LAD with a 50% in-stent restenosis that culminates in a 70% napkin ring lesion mid stented segment hazy 50% ostial ramus
lesion, moderately elevated filling pressures
Transesophageal echocardiogram 09/16/2023-EF 60%, stage I diastolic function, mild tricuspid regurgitation, mild sessile atheroma seen in the distal aortic arch
Subjective Dataa
Subjective Data
Date of Service:
Date of Service: September 17, 2023
Chief Complaint: Executive Vice President And Chief Financial Officer Follow Up and Vent Management Follow Up
Subjective:
Tolerated extubation, complains of some mucus in the back of her throat, no shortness of breath, chest pain, out of bed, no abdominal pain
Review of Systems
General: Other (Per HPI)
Objective Data
Data Reviewed
Vital Signs / I&O / Oxygen:
Vital Signs
Temp Pulse Resp BP Pulse Ox
97.7 F 70 13 107/51 97
09/17/23 06:00 09/17/23 06:30 09/17/23 06:00 09/17/23 06:21 09/17/23 07:40
Intake and Output
09/16/23 09/17/23 09/18/23
06:59 06:59 06:59
Intake Total 1531.3 / 1531.3
Output Total 760 / 760
Balance 771.3 / 771.3
SaO2 [SIMV] 100
SaO2 97
Nasal Cannula flow liters per 2
minute
Physical Exam
General: Respiratory Distress (n) and Comfortable
HEENT: Normocephalic, Anicteric and Moist Mucous Membranes
Cardiovascular: Regular Rhythm
Respiratory: Wheeze (n), Crackles, Rhonchi, Non-Labored Respirations, Accessory Resp Muscle Use (n) and Stridor
GI: Soft, Non Distended and Non Tender
Neurology: Awake, Alert and No Motor Deficits
Skin: Warm, Good Color, Cyanosis (n), Jaundice (n) and Rash (n)
Labs/Micro/Reports
Lab Data
09/17/23 03:23
09/17/23 03:23
Laboratory Results
09/16/23 09/16/23 09/16/23
13:03 14:05 17:03
PT 20.2 H
INR 1.74
APTT 35.0
pH 7.28 L 7.42 7.33 L
pCO2 43 H 44 H 47 H
pO2 319 H 122 H 153 H
HCO3 20.2 L 28.5 H 24.8
O2 Delivery Level
09/17/23
03:23
PT 16.1 H
INR 1.31
APTT
pH
pCO2
pO2
HCO3
O2 Delivery Level
--- NOTE | 2023-09-17 07:54 | PTCARENOTE ---
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 NSR via cm, SaO2 @ 97% on RA. RIJ Cordis w/kvo infusing. Insulin infusing via PIV, titrating per glycemic protocol. Epicardial
V-wire to pulse generator, off. Mediastinal and L pleural chest tubes, Y-connected to one pleuravac, to -20cm suction w/no leak or crepitus noted. Franklin catheter to gravity. All procedural sites stable. Patient updated to plan of care for the day,
in agreement. See work list for full assessment and interventions performed.
--- NOTE | 2023-09-17 07:54 | W.PN.CD ---
Today's Communication / Plan
-
-
hold metoprolol if sysBp < 100; amio 200 TID
cont w pulm Rx and OOB as tolerated
eventually to restart DM meds and Jardiance
Impression / Plan
-
Impression/Plan: 73 y/o female with extensive CAD/revascularization history (see below) admitted with symptoms concerning for unstable angina.
#Coronary artery disease/chest pain:
Successful CABGx2 09/16/23 (Palmer to LAD; SVF to CX)
Doing well postop
extubated; drips weaned and SG dc'd
holding BB due to lowish BP
ekg w diffuse ST changes consit w pericarditis, subclinical
#Hx of CAD, longstanding; multiple previous PCIs
-CAD with previous roto-stenting of the LAD May 2002, brachytherapy and restenting 2004, proximal RCA stent 2002, ramus PTCA 2004, and stent in proximal and mid LAD May 2012.
-Patient with symptoms highly concerning for angina; has had symptom-limiting exertion while at home and exercising. Troponin < 0.012.
-Echocardiogram shows normal biventricular function.
-Continue aspirin, heparin drip, and beta-gigi.
-Coronary angiography this morning.
#HTN
-Chronic, moderately elevated.
-Intolerance: Amlodipine (felt 'unwell').
-Bradycardia overnight. Verapamil discontinued.
-Remains on carvedilol 6.25 mg BID.
#CKD:
-Baseline Creatinine 1.3-1.7.
-Nephrology consulted; appreciate assistance.
-Dapagliflozin and candesartan being held in anticipation of procedure; will monitor renal function.
#Type 2 diabetes mellitus requiring insulin with fasting hyperglycemia, HgbA1c 7.2%.
#Dyslipidemia, LDL 24 --continue rosuvastatin 40 mg.
#Iron deficiency anemia, chronic and stable.
Subjective/Interval History:
Some bradycardia overnight.
EKG shows junctional bradycardia with PACs.
Verapamil discontinued.
DATA:
TTE, 09/15/2023:
CONCLUSIONS
�Normal biventricular size and systolic function without regional wall motion
�abnormality. Estimated LVEF 60-65%.
�No significant valve disease.
�
�Compared to 04/27/21: no significant change.
Physical Exam
Vital Signs/Labs
Vital Signs
Temp Pulse Resp BP Pulse Ox
97.7 F 70 13 107/51 97
09/17/23 06:00 09/17/23 06:30 09/17/23 06:00 09/17/23 06:21 09/17/23 07:40
09/16/23 09/17/23 09/18/23
06:59 06:59 06:59
Actual Weight 155 lb 3.287 oz 165 lb 9.074 oz
09/17/23 03:23
09/17/23 03:23
PT 16.1 Sec (11.4-14.6) H 09/17/23 03:23
INR 1.31 09/17/23 03:23
APTT 35.0 Sec (23.4-35.0) 09/16/23 13:03
Magnesium 2.9 mg/dl (1.6-2.3) H 09/17/23 03:23
Triglycerides 112 mg/dl (10-149) 09/13/23 04:21
LDL Cholesterol, Calc 24 mg/dl 09/13/23 04:21
VLDL Cholesterol, Calc 22 mg/dl (0-30) 09/13/23 04:21
HDL Cholesterol 29 mg/dl 09/13/23 04:21
Physical Exam
Constitutional: Comfortable
Cardiovascular: Rhythm & rate is regular and Pedal edema is absent
Respiratory: Respiratory effort normal and Lungs clear to auscul.
GI: Soft
Neuro/Psych: Alert and AO x 3
Data Reviewed
-
Date of Service: September 17, 2023
EKG: Tracing Personally Visualized and interpreted
Medical Tests (PFT, Pathology etc): Report Reviewed by me
Labs: Labs Reviewed by me
--- NOTE | 2023-09-17 08:06 | PN.DE.MGMTRT ---
Insulin Management
- -
09/17/2023 Diabetes management Consult
Patient s/p CABG x 2 POD 1. PMH afib, HLD, HTN, [place], type 2 diabetes, CKD-3, chronic iron deficiency,CAD, CHF. A1C on admission 7.2%, cr 1.1, egfr 52.4 today. Prior to admission was taking Jardiance 10 mg daily, Levemir 28 units BID, Januvia 100
mg daily and metformin 1000 mg BID.
Currently on glycemic protocol requiring .1 to 3.5 units per hour.
Will continue glycemic protocol today and assess for readiness to transition in AM tomorrow.
Diabetes History
- -
Type of Diabetes: 2 requiring insulin
Pre-Admission Diabetes Regimen
09/16/23 09/16/23 09/17/23
13:03 17:03 03:23
Creatinine 0.8 1.1 H 1.1 H
Lab Results
Hemoglobin A1c 7.2 % (4.0-5.6) H 09/13/23 04:21
Insulin Pump Settings
IP Diabetes Regimen
09/16/23 09/16/23 09/16/23
13:03 13:09 14:01
Glucose 155 H
POC Glucose 185 H 180 H
09/16/23 09/16/23 09/16/23
15:04 15:57 17:03
Glucose 128 H
POC Glucose 160 H 144 H 127 H
09/16/23 09/16/23 09/16/23
18:04 19:54 21:55
Glucose
POC Glucose 121 H 114 H 97
09/16/23 09/17/23 09/17/23
23:56 01:58 03:23
Glucose 90
POC Glucose 101 H 106 H
09/17/23 09/17/23 09/17/23
04:06 05:00 06:04
Glucose
POC Glucose 76 85 106 H
09/17/23
07:29
Glucose
POC Glucose 105 H
Meal type: Lunch
Patient Education
[2023-09-17] MEDS: NEURONTIN 100 MG PO ×3 (08:17→22:23)
[2023-09-17] MEDS: BACTROBAN 2% OINTMENT 1 APPLIC NASAL ×2 (08:17→19:19)
[2023-09-17] MEDS: PACERONE 200 MG PO ×3 (08:17→22:23)
[2023-09-17] MEDS: PLAVIX 75 MG PO (08:17)
[2023-09-17] MEDS: FEOSOL 325 MG PO (08:18)
[2023-09-17] MEDS: SENOKOT-S 1 TABLET PO ×2 (08:18→19:19)
[2023-09-17] MEDS: LOW STRENGTH ASPIRIN 81 MG PO (08:18)
[2023-09-17] MEDS: VITAMIN D3 (cholecalciferol) 25 MCG PO (08:18)
[2023-09-17] MEDS: ProAmatine 5 MG PO ×3 (08:18→17:58)
--- NOTE | 2023-09-17 08:19 | W.PN.ANS.POP ---
Anesthesia Post Operative
- Anesthesia Post Op Note
Vital Signs Stable-See Nursing Note: Yes
Airway Patent: Yes
Adequate Pain Control: Yes
Change in Mental Status: No
Current Postoperative Nausea & Vomiting: No
Anesthesia Complications: No
General Anesthetic Recall: No
Unplanned Admission: No
Post Op Hydration Adequate: Yes
--- NOTE | 2023-09-17 08:22 | CM ---
Reviewed chart. Telephone call to [facility] to check on co-pay for Jardiance 10 mg po daily. Her co-pay for a one month supply would be $47.00 a month and fo a 90 day supply the co-pay would be $94.00. Placed the one month free coupon
in her red discharge folder.
[2023-09-17 09:03] LABS: Glucose - Point of Care 106 mg/dl (70-99)
--- NOTE | 2023-09-17 09:08 | W.PN.NEPH.PH ---
Today's Communication / Plan
-
wean midodrine
Assessment/Plan
-
Assessment
-unstable angina
-CAD
-CKD3a (1.2)
-DM2
-DEBBIE
-Anemia
-subnephrotic proteinuria
Plan
-stopped ARB
-stopped SGLT2i
-wean midodrine first
-can trial lasix if BP stable
-follow BMP
-
-
Date of Service: September 17, 2023
CC / HPI / ROS
-
Chief Complaint:
DEBBIE
History of Present Illness:
DEBBIE/Cr at 1.1
s/p cardiac cath 09/15/23: LVEDP ~23
BP stable low
Review of Systems:
no CP/SOB
Labs
-
Labs:
WBC 15.3 10^3/uL (4.8-10.8) H 09/17/23 03:23
RBC 2.93 10^6/uL (4.20-5.40) L 09/17/23 03:23
Hgb 8.4 g/dL (12.0-16.0) L 09/17/23 03:23
Hct 24.9 % (37.0-47.0) L 09/17/23 03:23
Plt Count 137 10^3/uL (130-400) 09/17/23 03:23
Sodium 140 mmol/L (135-145) 09/17/23 03:23
Potassium 4.7 mmol/L (3.5-5.1) 09/17/23 03:23
Chloride 108 mmol/L (98-107) H 09/17/23 03:23
Carbon Dioxide 28 mmol/L (22-30) 09/17/23 03:23
BUN 29 mg/dl (7-17) H 09/17/23 03:23
Creatinine 1.1 mg/dL (0.6-1.0) H 09/17/23 03:23
eGFR 52.40 09/17/23 03:23
Glucose 90 mg/dl (70-99) 09/17/23 03:23
Calcium 9.0 mg/dl (8.4-10.2) 09/17/23 03:23
Albumin 3.2 g/dl (3.5-5.0) L 09/15/23 07:14
Physical Exam
-
Vital Signs:
Vital Signs
Temp Pulse Resp BP Pulse Ox
97.9 F 74 16 106/59 99
09/17/23 08:00 09/17/23 09:00 09/17/23 08:00 09/17/23 09:00 09/17/23 09:00
Cardiovascular:: Regular rate and rhythm
Respiratory:: Bilateral: Coarse
Lung Excursion:: Normal
Abdomen:: Nontender and Soft
Bowel Sounds:: Normal
Extremity Edema:: +1: Bilateral:
[2023-09-17] MEDS: NOVOLIN R INSULIN INFUSION 100 IV (09:47)
[2023-09-17] MEDS: NSS IV (10:27)
--- NOTE | 2023-09-17 10:27 | PTCARENOTE ---
Mediastinal chest tube d/c'd as ordered, patient tolerated well. L pleural chest tube placed to bulb evacuator, unable to maintain reconstitution. DEBORAH Rai notified, to bedside. Chest tube placed to pleuravac at -20cm suction, no air leak noted.
[2023-09-17 11:03] LABS: Glucose - Point of Care 107 mg/dl (70-99)
--- NOTE | 2023-09-17 12:10 | PTCARENOTE ---
VS obtained, stable. Patient c/o R eye teariness, eye appears mildly swollen. Vision unaffected. CHET Vicente updated, to bedside for evaluation.
[2023-09-17 13:05] LABS: Glucose - Point of Care 177 mg/dl (70-99)
[2023-09-17 15:03] LABS: Glucose - Point of Care 288 mg/dl (70-99)
[2023-09-17] MEDS: SKELAXIN 800 MG PO (15:04)
[2023-09-17 16:20] LABS: Glucose - Point of Care 296 mg/dl (70-99)
[2023-09-17] MEDS: TYLENOL PO (17:25)
[2023-09-17 17:56] LABS: Blood Urea Nitrogen 39 mg/dl (7-17); Calcium 8.6 mg/dl (8.4-10.2); Carbon Dioxide 26 mmol/L (22-30); Chloride 103 mmol/L (98-107); Estimated Creatinine Clearance 32 ml/min; Glucose 230 mg/dl (70-99); Potassium 4.2 mmol/L (3.5-5.1); Sodium 135 mmol/L (135-145); eGFR 42.88
[2023-09-17] MEDS: CRESTOR 40 MG PO (17:58)
[2023-09-17 17:59] LABS: Glucose - Point of Care 239 mg/dl (70-99)
[2023-09-17] MEDS: NOVOLOG FLEXPEN 4 UNITS SC (17:59)
[2023-09-17] MEDS: ROXICODONE 5 MG PO (18:14)
[2023-09-17 19:01] LABS: Glucose - Point of Care 295 mg/dl (70-99)
[2023-09-17] MEDS: MUCINEX 600 MG PO (19:19)
--- NOTE | 2023-09-17 20:00 | PTCARENOTE ---
Received pt from dayshift; Pt is resting comfortably in bed, AAOx3, family at bedside; NSR on monitor, VSS; Hear sounds audible, rub present, radial and DP pulses palpable, trace lower extremity edema, temp epicardial V wires insulated; lung sounds
diminished throughout, spo2 97% on RA, left pleural CT to -20 wall suction, no air leaks, no crepitus, no tidaling; +bs x4 quadrants, abdomen soft non tender; pt voiding clear yellow urine; right IJ cordis and PIX x2 maintained, insulin gtt
infusing; surgical sites are clean, dry, stable; call alexander within reach; will continue to monitor.
[2023-09-17 20:15] LABS: Glucose - Point of Care 262 mg/dl (70-99)
[2023-09-17 21:23] LABS: Glucose - Point of Care 243 mg/dl (70-99)
[2023-09-17 22:21] LABS: Glucose - Point of Care 168 mg/dl (70-99)
[2023-09-17] MEDS: FLEXERIL 5 MG PO (22:22)
[2023-09-17 23:16] LABS: Glucose - Point of Care 99 mg/dl (70-99)
[2023-09-18] VITALS (35 sets, daily range): BP systolic 98–170; BP diastolic 44–75; PULSE 77–82; O2SAT 98–99; BMI 36.0
[2023-09-18 00:13] LABS: Glucose - Point of Care 69 mg/dl (70-99)
[2023-09-18] MEDS: DEXTROSE 50% SYRINGE 12.5 GRAMS IV (00:18)
--- NOTE | 2023-09-18 00:30 | PTCARENOTE ---
Pt assessment unchanged; pt resting comfortably in bed; NSR on monitor, VSS; hourly BG check for 0000 was 69, pt was asymptomatic, hypoglycemic protocol followed, see work list and MAR; pt's repeat BG after d5 administration was 128, insulin gtt
restarted per protocol, CVNP was made aware. call alexander within reach. will continue to monitor.
[2023-09-18 00:49] LABS: Glucose - Point of Care 128 mg/dl (70-99)
[2023-09-18] MEDS: TYLENOL PO ×2 (01:28→07:50)
[2023-09-18 01:51] LABS: Glucose - Point of Care 90 mg/dl (70-99)
[2023-09-18 03:01] LABS: Glucose - Point of Care 72 mg/dl (70-99)
[2023-09-18 03:46] LABS: Mean Corpuscular Hgb 29.2 pg (27.0-31.0); Mean Corpuscular Volume 85.8 fL (81.0-99.0); Mean Platelet Volume 10.7 fL (7.4-10.4); Platelet Count 138 10^3/uL (130-400); Red Cell Dist. Width 14.8 % (11.5-14.5); White Blood Cell Count 14.4 10^3/uL (4.8-10.8)
[2023-09-18 03:50] LABS: Hematocrit 20.6 % (37.0-47.0)
[2023-09-18 03:57] LABS: Blood Urea Nitrogen 44 mg/dl (7-17); Calcium 8.4 mg/dl (8.4-10.2); Carbon Dioxide 26 mmol/L (22-30); Chloride 105 mmol/L (98-107); Estimated Creatinine Clearance 30 ml/min; Glucose 70 mg/dl (70-99); Sodium 136 mmol/L (135-145); eGFR 39.23
--- NOTE | 2023-09-18 04:00 | PTCARENOTE ---
Pt assessment unchanged; pt resting comfortably in bed VSS, NSR on monitor; critical lab value received and CVNP notified; Hct 20.6; will continue to monitor.
[2023-09-18 04:11] LABS: Potassium 4.3 mmol/L (3.5-5.1)
[2023-09-18 04:12] LABS: Glucose - Point of Care 104 mg/dl (70-99)
--- NOTE | 2023-09-18 04:59 | W.PN.CT ---
Today's Communication / Plan
-
-No major issues overnight.
-Remains on insulin gtt, at times 16 u/hr, per RN IV may have been 'leaking'. Appreciate DM team recs
-UOP 325 cc/24 hrs, CK baseline ~1.3, 1.4 this AM. Franklin out.
-Chest tube output: L pleural 0/10 in 12/24 hrs, meds d/c 09/17
-Current meds (ASA/Plavix, Amio, gabapentin, midodrine 5 mg TID, metoprolol being held while on midodrine)
-H/H 02/27.6, 1 U PRBC ordered
-Cordis in situ
-Maintain temporary pacer wire (will cut before d/c home)
-Encourage use of IS, on RA
-OOB into chair/Ambulate in room
Assessment / Plan
-
Assessment:
-S/p Off pump cabg x 2 (arambula- lad, [id number])/REVH/TTFM/ LAAL (#35 clip)/Rigid sternal fixation, by Dr. Patel, 09/16/23, pod#2� � � � � � � � �
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
-Hx CAD S/P PCI with stents to prox LAD, Cx and RCA, 2005
-USA
-Preop bradycardia (sinus, 53 bpm)
-LVEF 60% per intraop JAMA
-Mild TR
-Hypertension
-Hyperlipidemia
-Class 1 obesity (BMI 33.3)
-Insulin dependent diabetes mellitus type 2 (A1C 7.2)
-CKD 3a
-Osteoarthritis
-Chronic iron deficiency anemia
-S/P Bladder tuck surgery
-S/P Bilateral breast biopsies
-S/p Tubal ligation
-S/p Hysterectomy
-S/p Ectopic
-S/P Bilateral knee injections
-S/p Laminectomy
-S/P Left knee surgery
-S/P Left inguinal hernia repair
-S/p Cataract surgery
-S/p Cholecystectomy
-S/p Tonsillectomy
-Acute intraop/postop blood loss on chronic anemia (transfused 1u PRBC POD #0, POD #2)
-Acute postop thrombocytopenia (stable without active bleed)
-Acute postop atelectasis/pleural effusion
-Acute postop hypovolemia with subsequent hypervolemia
-Acute postop pericarditis (global ST-elevation, +rub; pt not in excruciating pain/asymptomatic)
Subjective
Procedure
S/p Off pump cabg x 2 (arambula- lad, [id number])/REVH/TTFM/ LAAL (#35 clip)/Rigid sternal fixation, by Dr. Patel, 09/16/23
-
Date of Service: September 18, 2023
Objective Data
-
Lab Results
09/18/23 03:08
09/18/23 03:08
PT 16.1 Sec (11.4-14.6) H 09/17/23 03:23
INR 1.31 09/17/23 03:23
APTT 35.0 Sec (23.4-35.0) 09/16/23 13:03
Vital Signs
Vital Signs
Temp Pulse Resp BP Pulse Ox
98.1 F 74 15 101/53 97
09/18/23 04:00 09/18/23 04:00 09/17/23 16:10 09/18/23 04:00 09/18/23 04:00
CT Intake/Output/Weight
09/17/23 09/17/23 09/18/23
06:59 18:59 06:59
Intake Total 997.8 / 1542.3 623 / 735.4 112.4 / 735.4
Output Total 320 / 775 345 / 345 0 / 345
Balance 677.8 / 767.3 278 / 390.4 112.4 / 390.4
SaO2: 97
Physical Exam
-
General: Awake, Oriented and AOx3
Cardiovascular: Regular rate & rhythm, No Murmurs, Rub and No Gallop
Respiratory: Clear and Equal
Sternum: Stable
Incision: Clean, Dry and Intact
Extremities: No Edema
Data Reviewed
-
Lab Results: Results Reviewed
Medications: Active Meds Reviewed
Chest X-Ray: Report Reviewed
ECG: Report Reviewed, Image Reviewed and Discussed w/ Cardiology
[2023-09-18 05:22] LABS: Glucose - Point of Care 96 mg/dl (70-99)
[2023-09-18 06:06] LABS: Glucose - Point of Care 89 mg/dl (70-99)
--- NOTE | 2023-09-18 07:29 | PTCARENOTE ---
Patient received from nightshift nurse. Patient is alert and oriented x4. Patient c/o 3/10 sternal incision pain, administered scheduled Tylenol as ordered. NSR. Audible heart tones. V wires insulated. HR 70s-90s. BP 128/55. Palpable pulses, weak
dorsalis pedal pulses. Trace UE and LE edema. RIJ cordis maintained with KVO. PIV x2 maintained. Insulin gtt maintained per critical care glycemic protocol. Awaiting personal development educator for directions to wean gtt off. RA. Oxygen saturation 97%. Upon
auscultation, lung sounds diminished throughout. IS 1000. LP CT maintained to -20cm wall suction with minimal serosanguineous drainage. Abdomen round, obese. Hypoactive BS. Voids in BR with 1 assist. Passing gas, no BM yet. Sternal aquacell clean,
dry, intact. R groin puncture site is approximated with surgical adhesive and open to air. R knee incision is approximated with surgical adhesive and open to air. Will continue to monitor.
[2023-09-18 07:39] LABS: Glucose - Point of Care 105 mg/dl (70-99)
--- NOTE | 2023-09-18 07:43 | W.PN.INTV ---
Today's Communication / Plan
Recommendations
Increase activity
Wean FiO2
Monitor chest tube output
Follow hemoglobin
Transfuse if needed
Wean insulin drip off-transfer to telemetry-farm management adviser will sign off-call pulmonary if respiratory issues arise
Assessment
-
73-year-old female with underlying CAD, chronic kidney disease and unstable angina underwent CABG x 2-farm management adviser consulted for postoperative ventilator/critical care management 09/16/2023.
Assessment
Severe CAD with history of prior stents with unstable angina
Status post AUAX-uhs-wpms-THURMAN-LAD, [id number]-[id number] to, left atrial appendage clip-Dr. Patel -09/16/2023
Anemia-hemoglobin 7.6-normocytic
Thrombocytopenia-platelet count 109
Mild hyperglycemia
Metabolic acidosis
Conditions present prior to admission:
Hypertension.
Hyperlipidemia.
Insulin-dependent type 2 diabetes.
CAD status post stent to LAD, RCA 2005.
Chronic kidney disease stage IIIa.
Osteoarthritis.
Chronic iron deficiency anemia.
Bilateral knee injections. Laminectomy. Ectopic . Left knee surgery. Cataract surgery. Hysterectomy. Cholecystectomy. Tonsillectomy. Left inguinal hernia repair.
Bladder tuck surgery. Bilateral breast biopsies. Tubal ligation.
Plan
Tolerated extubation
Wean FiO2
Encourage incentive spirometry
Increase activity
Aspiration precautions
Pulmonary artery catheter and arterial line will be removed
Pressors have been weaned
Continue to monitor chest tube output
Follow hemoglobin
Continue to follow platelet count and coags
Transfuse blood product as needed
CT surgery following chest tubes as well
Follow blood sugar
Insulin supplementation continues as needed
Early nutrition
Early mobilization
DVT prophylaxis
If patient transferred to telemetry as off insulin drip then farm management adviser will sign off-call pulmonary if respiratory issues arise
Reviewed the patient's pertinent medical records including radiographs, microbiology, laboratory evaluations, and discussion with primary team, and critical care nursing.
Diagnostic data:
Chest x-ray 09/12/2023-NAD
Chest x-ray 09/16/2023-tip of endotracheal tube at the origin the right mainstem could be retracted at least 2 cm, mild interstitial airspace disease at the left lung base subsegmental atelectasis
Echocardiogram 09/15/2023-EF 60-65%, no valvular disease
Cardiac catheterization 09/15/2023-right dominant circulation, patent stent to proximal RCA, 2-3 layers of stents in proximal LAD with a 50% in-stent restenosis that culminates in a 70% napkin ring lesion mid stented segment hazy 50% ostial ramus
lesion, moderately elevated filling pressures
Transesophageal echocardiogram 09/16/2023-EF 60%, stage I diastolic function, mild tricuspid regurgitation, mild sessile atheroma seen in the distal aortic arch
Subjective Dataa
Subjective Data
Date of Service:
Date of Service: September 18, 2023
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
Subjective:
Out of bed, blood sugars better controlled, no complaints of shortness of breath, has scratchy irritated throat likely from ET tube, no abdominal pain
Review of Systems
General: Other (Per HPI)
Objective Data
Data Reviewed
Vital Signs / I&O / Oxygen:
Vital Signs
Temp Pulse Resp BP Pulse Ox
97.6 F 76 16 128/55 97
09/18/23 07:22 09/18/23 07:22 09/18/23 07:22 09/18/23 07:22 09/18/23 07:22
Intake and Output
09/17/23 09/18/23 09/19/23
06:59 06:59 06:59
Intake Total 1531.3 / 1542.3 1008.3 / 1008.3 250 / 250
Output Total 760 / 775 345 / 345 250 / 250
Balance 771.3 / 767.3 663.3 / 663.3 0 / 0
SaO2 [SIMV] 100
SaO2 97
Nasal Cannula flow liters per 2
minute
Physical Exam
General: Respiratory Distress (n) and Comfortable
HEENT: Normocephalic, Anicteric and Moist Mucous Membranes
Cardiovascular: Regular Rhythm
Respiratory: Wheeze (n), Crackles, Rhonchi, Non-Labored Respirations, Accessory Resp Muscle Use (n) and Stridor
GI: Soft, Non Distended and Non Tender
Neurology: Awake, Alert and No Motor Deficits
Skin: Warm, Good Color, Cyanosis (n), Jaundice (n) and Rash (n)
Labs/Micro/Reports
Lab Data
09/18/23 03:08
09/18/23 03:08
[2023-09-18] MEDS: ProAmatine 5 MG PO (08:48)
[2023-09-18] MEDS: MUCINEX 600 MG PO ×2 (08:48→20:18)
[2023-09-18] MEDS: SENOKOT-S 1 TABLET PO ×2 (08:48→20:18)
[2023-09-18] MEDS: PLAVIX 75 MG PO (08:48)
[2023-09-18] MEDS: NOVOLOG FLEXPEN 4 UNITS SC ×2 (08:49→12:28)
[2023-09-18] MEDS: VITAMIN D3 (cholecalciferol) 25 MCG PO (08:49)
[2023-09-18] MEDS: BACTROBAN 2% OINTMENT 1 APPLIC NASAL ×2 (08:49→20:19)
[2023-09-18] MEDS: TYLENOL 650 MG PO ×4 (08:49→20:18)
[2023-09-18] MEDS: PACERONE 200 MG PO ×3 (08:49→21:58)
[2023-09-18] MEDS: NEURONTIN 100 MG PO ×3 (08:49→21:57)
[2023-09-18] MEDS: LOW STRENGTH ASPIRIN 81 MG PO (08:49)
[2023-09-18] MEDS: FEOSOL 325 MG PO (08:49)
--- NOTE | 2023-09-18 08:49 | PN.DE.MGMTRT ---
Insulin Management
- -
09/17/2023 Diabetes management Consult
Patient s/p CABG x 2 POD 1. PMH afib, HLD, HTN, [place], type 2 diabetes, CKD-3, chronic iron deficiency,CAD, CHF. A1C on admission 7.2%, cr 1.1, egfr 52.4 today. Prior to admission was taking Jardiance 10 mg daily, Levemir 28 units BID, Januvia 100
mg daily and metformin 1000 mg BID.
Currently on glycemic protocol requiring .1 to 3.5 units per hour.
Will continue glycemic protocol today and assess for readiness to transition in AM tomorrow.
09/18/2023 Diabetes Management Follow up
POD 2 CABG x2. Patient maintained on glycemic protocol overnight requiring up to 10 units of insulin per hour. Will transition from insulin infusion to subcutaneous insulin with Jardiance 10 mg and Januvia.
Patient was taking Levemir BID will change to lantus daily. Will give 25 units Lantus at 10AM; insulin infusion to be stopped at 12noon. Will start corrective insulin with dinner. Due to cr 1.4 will not resume metformin. Will reduce Januvia to
50 mg daily.
Diabetes History
- -
Type of Diabetes: 2 requiring insulin
Pre-Admission Diabetes Regimen
09/17/23 09/18/23
17:33 03:08
Creatinine 1.3 H 1.4 H
Lab Results
Hemoglobin A1c 7.2 % (4.0-5.6) H 09/13/23 04:21
Insulin Pump Settings
IP Diabetes Regimen
09/17/23 09/17/23 09/17/23
09:00 11:00 13:04
Glucose
POC Glucose 106 H 107 H 177 H
09/17/23 09/17/23 09/17/23
15:01 16:18 17:33
Glucose 230 H
POC Glucose 288 H 296 H
09/17/23 09/17/23 09/17/23
17:57 18:59 20:14
Glucose
POC Glucose 239 H 295 H 262 H
09/17/23 09/17/23 09/17/23
21:22 22:20 23:15
Glucose
POC Glucose 243 H 168 H 99
09/18/23 09/18/23 09/18/23
00:12 00:48 01:49
Glucose
POC Glucose 69 L 128 H 90
09/18/23 09/18/23 09/18/23
03:00 03:08 04:10
Glucose 70
POC Glucose 72 104 H
09/18/23 09/18/23 09/18/23
05:21 06:05 07:38
Glucose
POC Glucose 96 89 105 H
Meal type: Dinner
Meal type: Lunch
Meal type: Breakfast
Amount consumed: 75%
Amount consumed: 65%
Amount consumed: 100%
Patient Education
[2023-09-18] MEDS: JANUVIA 50 MG PO (10:39)
[2023-09-18] MEDS: JARDIANCE 10 MG PO (10:39)
[2023-09-18] MEDS: LANTUS 0.25 UNITS SC (10:39)
[2023-09-18 10:41] LABS: Glucose - Point of Care 216 mg/dl (70-99)
--- NOTE | 2023-09-18 10:53 | W.PN.NEPH.PH ---
Today's Communication / Plan
-
transfuse
Assessment/Plan
-
Assessment
-unstable angina
-CAD
-CKD3a (1.2)
-DM2
-DEBBIE
-Anemia
-subnephrotic proteinuria
Plan
-off ARB
-off SGLT2i
-wean midodrine first
-follow BMP
-transfuse PRBC prn (will help more than midodrine)
-
-
Date of Service: September 18, 2023
CC / HPI / ROS
-
Chief Complaint:
DEBBIE
History of Present Illness:
DEBBIE/Cr up to 1.4
Hgb down to 7
s/p cardiac cath 09/15/23: LVEDP ~23
BP stable low, but on midodrine
Review of Systems:
no CP/SOB
Labs
-
Labs:
Sodium 136 mmol/L (135-145) 09/18/23 03:08
Potassium 4.3 mmol/L (3.5-5.1) 09/18/23 03:08
Chloride 105 mmol/L (98-107) 09/18/23 03:08
Carbon Dioxide 26 mmol/L (22-30) 09/18/23 03:08
BUN 44 mg/dl (7-17) H 09/18/23 03:08
Creatinine 1.4 mg/dL (0.6-1.0) H 09/18/23 03:08
eGFR 39.23 09/18/23 03:08
Glucose 70 mg/dl (70-99) 09/18/23 03:08
Calcium 8.4 mg/dl (8.4-10.2) 09/18/23 03:08
Albumin 3.2 g/dl (3.5-5.0) L 09/15/23 07:14
Physical Exam
-
Vital Signs:
Vital Signs
Temp Pulse Resp BP Pulse Ox
97.5 F 83 20 120/49 98
09/18/23 08:00 09/18/23 10:07 09/18/23 08:00 09/18/23 10:07 09/18/23 08:45
Cardiovascular:: Regular rate and rhythm
Respiratory:: Bilateral: Coarse
Lung Excursion:: Normal
Abdomen:: Nontender and Soft
Bowel Sounds:: Normal
Extremity Edema:: None: Bilateral:
--- NOTE | 2023-09-18 11:12 | PTCARENOTE ---
LP CT discontinued per order and per protocol. Patient tolerated. New dressing applied. Patient is taking a nap in the bed. Will continue to monitor.
--- NOTE | 2023-09-18 11:28 | CM ---
Reviewed chart. Met with and Mrs. Noland and her son to review discharge plans. She states she is feeling okay. Son states prior to admission she resides with her spouse, son and [id number] in a two story home. He states she has a full
flight of steps to get to bedroom/full bathroom. Son states there is a powder room on the first floor. We reviewed a home visit by the Cardiothoracic Transitional Care Nurse. He states he would like to see if she will qualify for acute rehab. at
[facility]. She would have to get approval from her insurance. Will ask for physical therapy and occupational therapy and PM&R Evaluations to see if she will qualify. We also reviewed SNF/Rehab. and VNA Services. if needed. He states
when she goes home her spouse and [id number] will be home. Medical work-up in progress. The discharge plan is undetermined at this time-Acute Rehab versus SNF versus home with family and a home visit by the Cardiothoracic Transitional Care
Nurse when medically stable.
--- NOTE | 2023-09-18 12:06 | W.PN.CD ---
Today's Communication / Plan
-
-Remains clinically stable post-op.
-Telemetry stable.
-Continue aspirin, statin, beta-gigi.
-Continue routine postoperative care as directed by CT Surgery.
-Postoperative hemoglobin 7.0 today.
-May need blood transfusion.
Impression / Plan
-
Impression/Plan: 73 y/o female with extensive CAD/revascularization history (see below) admitted with symptoms concerning for unstable angina. CAD with previous roto-stenting of the LAD May 2002, brachytherapy and restenting 2004, proximal RCA
stent 2002, ramus PTCA 2004, and stent in proximal and mid LAD May 2012.
#Coronary artery disease/chest pain:
-Successful CABGx2 09/16/23 (Palmer to LAD; SVF to CX)
-Remains clinically stable post-op.
-Telemetry stable.
-Continue aspirin, statin, beta-gigi.
-Continue routine postoperative care as directed by CT Surgery.
#Iron deficiency anemia:
-Postoperative hemoglobin 7.0 today.
-May need blood transfusion.
#HTN
-Stable/controlled.
#CKD:
-Baseline Creatinine 1.3-1.7.
-Nephrology following.
#Type 2 diabetes mellitus, HgbA1c 7.2%; management as per primary team.
#Dyslipidemia, LDL 24 --continue rosuvastatin 40 mg.
Subjective/Interval History:
No major events overnight.
DATA:
TTE, 09/15/2023:
CONCLUSIONS
�Normal biventricular size and systolic function without regional wall motion
�abnormality. Estimated LVEF 60-65%.
�No significant valve disease.
�
�Compared to 04/27/21: no significant change.
Physical Exam
Vital Signs/Labs
Vital Signs
Temp Pulse Resp BP Pulse Ox
97.5 F 80 20 132/50 98
09/18/23 08:00 09/18/23 11:01 09/18/23 08:00 09/18/23 11:01 09/18/23 08:45
09/17/23 09/18/23 09/19/23
06:59 06:59 06:59
Actual Weight 75.1 kg 78.2 kg
09/18/23 03:08
PT 16.1 Sec (11.4-14.6) H 09/17/23 03:23
INR 1.31 09/17/23 03:23
APTT 35.0 Sec (23.4-35.0) 09/16/23 13:03
Magnesium 2.9 mg/dl (1.6-2.3) H 09/17/23 03:23
Triglycerides 112 mg/dl (10-149) 09/13/23 04:21
LDL Cholesterol, Calc 24 mg/dl 09/13/23 04:21
VLDL Cholesterol, Calc 22 mg/dl (0-30) 09/13/23 04:21
HDL Cholesterol 29 mg/dl 09/13/23 04:21
Physical Exam
Constitutional: No acute distress and Comfortable
EENT: Anicteric
Cardiovascular: Rhythm & rate is regular, Pedal edema is absent, Systolic murmur absent and S1S2 is normal
Respiratory: Respiratory effort normal and Lungs clear to auscul.
GI: Soft
Neuro/Psych: Alert and AO x 3
Other: Skin (Warm, dry, intact)
Data Reviewed
-
Date of Service: September 18, 2023
EKG: Tracing Personally Visualized and interpreted (Telemetry: Sinus rhythm, artifact)
Critical Care Time (in minutes): 38
[2023-09-18 12:20] LABS: Glucose - Point of Care 205 mg/dl (70-99)
--- NOTE | 2023-09-18 12:26 | PTCARENOTE ---
Vital signs stable. NSR. HR 70s. BP 130/46. RA. Oxygen saturation 98%. Patient sitting up in chair, eating lunch. Blood glucose >200. early childhood educator aide notified and said to keep the insulin gtt running until after dinner. CT HEALTH PHYSICS TECHNICIAN notified and CVICU
pharmacist - will adjust orders accordingly. Will continue to monitor.
[2023-09-18] MEDS: ROXICODONE 5 MG PO ×2 (12:27→20:18)
[2023-09-18] MEDS: NSS 500 IV (12:27)
[2023-09-18 12:39] LABS: Hematocrit 25.3 % (37.0-47.0); Hemoglobin 8.4 g/dL (12.0-16.0); Mean Corp Hgb Conc. 33.2 g/dL (33.0-37.0); Mean Corpuscular Hgb 28.5 pg (27.0-31.0); Mean Corpuscular Volume 85.8 fL (81.0-99.0); Mean Platelet Volume 11.2 fL (7.4-10.4); Platelet Count 130 10^3/uL (130-400); Red Blood Cell Count 2.95 10^6/uL (4.20-5.40); Red Cell Dist. Width 15.3 % (11.5-14.5); White Blood Cell Count 14.4 10^3/uL (4.8-10.8)
[2023-09-18 13:16] LABS: Glucose - Point of Care 220 mg/dl (70-99)
[2023-09-18] MEDS: NOVOLIN R INSULIN INFUSION 100 IV (13:35)
[2023-09-18 14:20] LABS: Glucose - Point of Care 214 mg/dl (70-99)
[2023-09-18 15:20] LABS: Glucose - Point of Care 187 mg/dl (70-99)
[2023-09-18 16:39] LABS: Glucose - Point of Care 139 mg/dl (70-99)
--- NOTE | 2023-09-18 17:10 | PTCARENOTE ---
Addendum entered by Blanca Avitia RN 09/18/23 18:36:
Patient had a hypoglycemic episode with blood glucose 68. Insulin gtt immediately stopped, per critical care glycemic protocol. Patient given 4oz apple juice for hypoglycemia, since she is tolerating PO and is asymptomatic. Her blood glucose has
been labile throughout the past 24hrs. Recheck blood glucose is 72. Critical care glycemic protocol followed with continuation of the gtt at 0.1 units/hr. Additional 4oz OJ given, per patient request. She does not like her blood sugar at 72, though
she is asymptomatic. CT TOURIST CAMP ATTENDANT notified. Insulin sliding scale not administered for hypoglycemia. Per CT TOURIST CAMP ATTENDANT, maintain critical care glycemic protocol throughout the night and defer to the diabetic TOURIST CAMP ATTENDANT in the AM.
Original Note:
CT TOURIST CAMP ATTENDANT would like to keep the patient on the critical care glycemic protocol, since her blood glucose has been labile. Her blood sugar is currently 114 on 10 units of the insulin gtt. She was on 20 units/hr for a couple hours. Order reinstated.
Pharmacy notified. Will continue to monitor.
[2023-09-18 17:18] LABS: Glucose - Point of Care 114 mg/dl (70-99)
[2023-09-18] MEDS: CRESTOR 40 MG PO (17:31)
[2023-09-18] MEDS: NOVOLOG FLEXPEN-MODERATE RESISTANCE SC (17:32)
--- NOTE | 2023-09-18 17:40 | W.PN.UPDATE ---
Update Note
Progress Note Update
Transfused 1PRBC for Hb 7. BP improved and Midodrine DC�d. Repeat Hb 8.4. Chst tubes DC�d. Coreg started at 6.25mg BID (home dose 25mg BID). Insulin DC�d and Levemir changed to Lantus 25 units SC daily. Januvia decreased to 50mg/d and Metformin
discontinued d/t GFR 39. Glucose high off insulin infusion and insulin infusion resumed (20>12u/h). Appreciate Diabetic ENROLLMENT NURSE team input.
[2023-09-18 18:09] LABS: Glucose - Point of Care 68 mg/dl (70-99)
[2023-09-18] MEDS: NOVOLOG FLEXPEN SC (18:18)
[2023-09-18 18:26] LABS: Glucose - Point of Care 72 mg/dl (70-99)
--- NOTE | 2023-09-18 20:15 | PTCARENOTE ---
report received from previous RN, walking rounds done. pt in chair, AAOx4. pt c/o sternal incision pain. 5mg PO oxy given as ordered PRN. VSS. NSR on monitor, HR 80's. epicardial wires intact and insulated. POX 95% on room air. pt assisted into BR
to void and then back to bed. RIJ cordis intact w KVO infusing. insulin gtt infusing per glycemic protocol. all surgical sites stable. see worklist for full assessment, VS, and interventions. pt resting comfortably.
[2023-09-18] MEDS: COREG 6.25 MG PO (20:18)
[2023-09-18 20:24] LABS: Glucose - Point of Care 93 mg/dl (70-99)
[2023-09-18] MEDS: FLEXERIL 5 MG PO (21:57)
[2023-09-18 22:04] LABS: Glucose - Point of Care 171 mg/dl (70-99)
[2023-09-18 23:16] LABS: Glucose - Point of Care 156 mg/dl (70-99)
[2023-09-19] VITALS (23 sets, daily range): BP systolic 94–157; BP diastolic 38–63; PULSE 79–83; O2SAT 97; BMI 36.0
[2023-09-19] MEDS: TYLENOL PO ×2 (01:08→04:58)
[2023-09-19 01:32] LABS: Glucose - Point of Care 93 mg/dl (70-99)
--- NOTE | 2023-09-19 03:00 | PTCARENOTE ---
pt VSS overnight. NSR. room air. all surgical sites stable. RIJ cordis maintained. insulin gtt maintained. AM labs drawn and sent. pt resting between care.
[2023-09-19 03:07] LABS: Glucose - Point of Care 83 mg/dl (70-99)
[2023-09-19 03:33] LABS: Hematocrit 23.9 % (37.0-47.0); Mean Corp Hgb Conc. 33.5 g/dL (33.0-37.0); Mean Corpuscular Hgb 28.3 pg (27.0-31.0); Mean Corpuscular Volume 84.5 fL (81.0-99.0); Mean Platelet Volume 10.9 fL (7.4-10.4); Platelet Count 135 10^3/uL (130-400); Red Blood Cell Count 2.83 10^6/uL (4.20-5.40); Red Cell Dist. Width 15.4 % (11.5-14.5); White Blood Cell Count 13.2 10^3/uL (4.8-10.8)
[2023-09-19 03:55] LABS: Blood Urea Nitrogen 42 mg/dl (7-17); Calcium 8.3 mg/dl (8.4-10.2); Carbon Dioxide 26 mmol/L (22-30); Chloride 104 mmol/L (98-107); Estimated Creatinine Clearance 36 ml/min; Glucose 79 mg/dl (70-99); Potassium 4.4 mmol/L (3.5-5.1); Sodium 136 mmol/L (135-145); eGFR 47.21
--- NOTE | 2023-09-19 04:14 | W.PN.CT ---
Today's Communication / Plan
-
-pod #3
-no issues overnight
-drips: insulin only- will plan to d/c
-appreciate DM input- on Jardiance 10qd, Januvia 50 qd, Lantus 25 qd. Metformin held d/t CKD
-s/p 1 pRBC on 09/18 -h/h today 8.0/23.9
- BP improved, Midodrine stopped, tolerated Coreg 6.25 mg
-follow Cr -1.2 today (1.4 on 09/18 and 1.4-1.7 preop)
-CTs were dcd
-Maintain temporary pacer wire (will cut before d/c home)
-Encourage use of IS, on RA
-OOB into chair/Ambulate in room
Assessment / Plan
-
Assessment:
-S/p Off pump cabg x 2 (arambula- lad, [id number])/REVH/TTFM/ LAAL (#35 clip)/Rigid sternal fixation, by Dr. Patel, 09/16/23, pod#3 � � � � � � � �
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
-Hx CAD S/P PCI with stents to prox LAD, Cx and RCA, 2005
-[place]
-Preop bradycardia (sinus, 53 bpm)
-LVEF 60% per intraop JAMA
-Mild TR
-Hypertension
-Hyperlipidemia
-Class 1 obesity (BMI 33.3)
-Insulin dependent diabetes mellitus type 2 (A1C 7.2)
-CKD 3a
-Osteoarthritis
-Chronic iron deficiency anemia
-S/P Bladder tuck surgery
-S/P Bilateral breast biopsies
-S/p Tubal ligation
-S/p Hysterectomy
-S/p Ectopic
-S/P Bilateral knee injections
-S/p Laminectomy
-S/P Left knee surgery
-S/P Left inguinal hernia repair
-S/p Cataract surgery
-S/p Cholecystectomy
-S/p Tonsillectomy
-Acute intraop/postop blood loss on chronic anemia (transfused 2u PRBC total on POD #0 and POD #2)
-Acute postop thrombocytopenia (stable without active bleed)
-Acute postop atelectasis/pleural effusion
-Acute postop hypovolemia with subsequent hypervolemia
-Acute postop pericarditis (global ST-elevation, +rub; pt not in excruciating pain/asymptomatic)
Discussed patient care with: Nursing and Care Team
Subjective
Procedure
S/p Off pump cabg x 2 (arambula- lad, [id number])/REVH/TTFM/ LAAL (#35 clip)/Rigid sternal fixation, by Dr. Patel, 09/16/23
-
Date of Service: September 19, 2023
Objective Data
-
PT 16.1 Sec (11.4-14.6) H 09/17/23 03:23
INR 1.31 09/17/23 03:23
APTT 35.0 Sec (23.4-35.0) 09/16/23 13:03
Vital Signs
Vital Signs
Temp Pulse Resp BP Pulse Ox
98.3 F 72 18 104/55 96
09/19/23 00:00 09/19/23 00:00 09/19/23 00:00 09/19/23 00:00 09/19/23 00:[address]
CT Intake/Output/Weight
09/18/23 09/18/23 09/19/23
06:59 18:59 06:59
Intake Total 385.3 / 1021.3 1905 / 2205 300 / 2205
Output Total 0 / 345 650 / 650
Balance 385.3 / 676.3 1255 / 1555 300 / 1555
SaO2: 96
Physical Exam
-
General: Awake, Oriented and AOx3
Cardiovascular: Regular rate & rhythm, No Murmurs, Rub and No Gallop
Respiratory: Clear and Equal
Sternum: Stable
Incision: Clean, Dry and Intact
Extremities: trace edema b/l
Data Reviewed
-
Lab Results: Results Reviewed
Medications: Active Meds Reviewed
Chest X-Ray: Report Reviewed and Image Reviewed
ECG: Report Reviewed and Image Reviewed
[2023-09-19 05:27] LABS: Glucose - Point of Care 101 mg/dl (70-99)
--- NOTE | 2023-09-19 07:00 | PTCARENOTE ---
Bedside walking rounds report received: patient seen on rounds oob in chair on room air and tolerating well. Oriented x 3. Remain on insulin gtt: plan is to wean off insulin gtt 2 hours after lantus subcutaneous is given. NSR on monitor. Epicardial
v wire insulated and secured: medtronic pacing box readily accessible in room. See flow record for remaining assessments.
[2023-09-19 07:18] LABS: Glucose - Point of Care 97 mg/dl (70-99)
[2023-09-19] MEDS: MUCINEX 600 MG PO ×2 (08:23→20:56)
[2023-09-19] MEDS: VITAMIN D3 (cholecalciferol) 25 MCG PO (08:23)
[2023-09-19] MEDS: PACERONE 200 MG PO ×3 (08:23→21:04)
[2023-09-19] MEDS: JARDIANCE 10 MG PO (08:24)
[2023-09-19] MEDS: PLAVIX 75 MG PO (08:24)
[2023-09-19] MEDS: COREG 6.25 MG PO ×2 (08:24→20:56)
[2023-09-19] MEDS: NEURONTIN 100 MG PO ×3 (08:24→21:04)
[2023-09-19] MEDS: SENOKOT-S 1 TABLET PO ×2 (08:24→20:56)
[2023-09-19] MEDS: FEOSOL 325 MG PO (08:24)
[2023-09-19] MEDS: LOW STRENGTH ASPIRIN 81 MG PO (08:24)
[2023-09-19] MEDS: JANUVIA 50 MG PO (08:24)
[2023-09-19] MEDS: BACTROBAN 2% OINTMENT 1 APPLIC NASAL ×2 (08:25→20:56)
[2023-09-19] MEDS: NOVOLOG FLEXPEN 8 UNITS SC (09:08)
[2023-09-19 09:18] LABS: Glucose - Point of Care 95 mg/dl (70-99)
--- NOTE | 2023-09-19 09:18 | W.PN.CD ---
Today's Communication / Plan
-
- cont to monitor Hgb
- stable OOB and walk as able
- cont post-op care
Impression / Plan
-
Impression/Plan: 73 y/o female with extensive CAD/revascularization history (see below) admitted with symptoms concerning for unstable angina. CAD with previous roto-stenting of the LAD May 2002, brachytherapy and restenting 2004, proximal RCA
stent 2002, ramus PTCA 2004, and stent in proximal and mid LAD May 2012.
#Coronary artery disease/chest pain:
-Successful CABGx2 09/16/23 (Palmer to LAD; SVF to CX)
-Remains clinically stable post-op.
-Telemetry stable.
-Continue aspirin, statin, beta-gigi.
-Continue routine postoperative care as directed by CT Surgery.
#Iron deficiency anemia:
-Postoperative hemoglobin 7.0 on 09/18, s/p 1 uPRBC, 09/19 now at 8.
#HTN
-Stable/controlled.
#CKD:
-Baseline Creatinine 1.3-1.7.
-Nephrology following.
#Type 2 diabetes mellitus, HgbA1c 7.2%; management as per primary team.
#Dyslipidemia, LDL 24 --continue rosuvastatin 40 mg.
Subjective/Interval History:
No major events overnight.
DATA:
TTE, 09/15/2023:
CONCLUSIONS
�Normal biventricular size and systolic function without regional wall motion
�abnormality. Estimated LVEF 60-65%.
�No significant valve disease.
�
�Compared to 04/27/21: no significant change.
Physical Exam
Vital Signs/Labs
Vital Signs
Temp Pulse Resp BP Pulse Ox
97.5 F 79 18 121/61 98
09/19/23 08:00 09/19/23 08:00 09/19/23 08:00 09/19/23 08:00 09/19/23 08:00
09/18/23 09/19/23 09/20/23
06:59 06:59 06:59
Actual Weight 172 lb 6.424 oz 172 lb 2.896 oz
09/19/23 03:07
09/19/23 03:07
PT 16.1 Sec (11.4-14.6) H 09/17/23 03:23
INR 1.31 09/17/23 03:23
APTT 35.0 Sec (23.4-35.0) 09/16/23 13:03
Magnesium 2.9 mg/dl (1.6-2.3) H 09/17/23 03:23
Triglycerides 112 mg/dl (10-149) 09/13/23 04:21
LDL Cholesterol, Calc 24 mg/dl 09/13/23 04:21
VLDL Cholesterol, Calc 22 mg/dl (0-30) 09/13/23 04:21
HDL Cholesterol 29 mg/dl 09/13/23 04:21
Physical Exam
Constitutional: No acute distress
EENT: Anicteric
Cardiovascular: Rhythm & rate is regular and Pedal edema is absent
Respiratory: Respiratory effort normal
GI: Soft
Neuro/Psych: AO x 3
Data Reviewed
-
Date of Service: September 19, 2023
EKG: Report Reviewed by me
Echo: Report Reviewed by me
Labs: Labs Reviewed by me
[2023-09-19 10:55] LABS: Glucose - Point of Care 137 mg/dl (70-99)
[2023-09-19] MEDS: LANTUS 0.25 UNITS SC (10:55)
--- NOTE | 2023-09-19 11:33 | W.PN.NEPH.PH ---
Today's Communication / Plan
-
creatinine stable at 1.2
we will sign off
Assessment/Plan
-
Assessment
-unstable angina
-CAD
-CKD3a (1.2)
-DM2
-DEBBIE
-Anemia
-subnephrotic proteinuria
Plan
-creatinine at baseline 1.2
-off ARB
-off SGLT2i
-wean midodrine first
-follow BMP
-hemodynamically stable
-
-
Date of Service: September 19, 2023
CC / HPI / ROS
-
Chief Complaint:
DEBBIE
History of Present Illness:
DEBBIE/Cr down to 1.2
Hgb down to 7
s/p cardiac cath 09/15/23: LVEDP ~23
BP stable low, but on midodrine
Review of Systems:
no CP/SOB
Labs
-
Labs:
WBC 13.2 10^3/uL (4.8-10.8) H 09/19/23 03:07
RBC 2.83 10^6/uL (4.20-5.40) L 09/19/23 03:07
Hgb 8.0 g/dL (12.0-16.0) L 09/19/23 03:07
Hct 23.9 % (37.0-47.0) L 09/19/23 03:07
Plt Count 135 10^3/uL (130-400) 09/19/23 03:07
Sodium 136 mmol/L (135-145) 09/19/23 03:07
Potassium 4.4 mmol/L (3.5-5.1) 09/19/23 03:07
Chloride 104 mmol/L (98-107) 09/19/23 03:07
Carbon Dioxide 26 mmol/L (22-30) 09/19/23 03:07
BUN 42 mg/dl (7-17) H 09/19/23 03:07
Creatinine 1.2 mg/dL (0.6-1.0) H 09/19/23 03:07
eGFR 47.21 09/19/23 03:07
Glucose 79 mg/dl (70-99) 09/19/23 03:07
Calcium 8.3 mg/dl (8.4-10.2) L 09/19/23 03:07
Albumin 3.2 g/dl (3.5-5.0) L 09/15/23 07:14
Physical Exam
-
Vital Signs:
Vital Signs
Temp Pulse Resp BP Pulse Ox
97.5 F 79 18 121/61 98
09/19/23 08:00 09/19/23 08:00 09/19/23 08:00 09/19/23 08:00 09/19/23 08:00
Cardiovascular:: Regular rate and rhythm
Respiratory:: Bilateral: Coarse
Lung Excursion:: Normal
Abdomen:: Nontender
Bowel Sounds:: Normal
Extremity Edema:: None: Bilateral:
Franklin Catheter: No
--- NOTE | 2023-09-19 12:00 | PTCARENOTE ---
No acute changes. Assisted back to bed. Right IJ cordis dc at 1330pm/sutures removed . NSR. Room air
[2023-09-19 12:11] LABS: Glucose - Point of Care 106 mg/dl (70-99)
[2023-09-19] MEDS: NOVOLOG FLEXPEN-MODERATE RESISTANCE SC ×2 (12:26→17:36)
[2023-09-19] MEDS: PROTONIX 40 MG PO (12:28)
[2023-09-19] MEDS: SKELAXIN 800 MG PO (15:04)
[2023-09-19] MEDS: NSS IV (15:04)
[2023-09-19] MEDS: TYLENOL 650 MG PO (15:05)
--- NOTE | 2023-09-19 15:41 | CM ---
Addendum entered by PAMELA Bell 09/19/23 16:12:
Call from [facility], patient does not qualify for acute rehab level of care given Sup level.
Original Note:
CM following for DC planning needs.
Patient POD#3 from CABG.
Noted PT evaluation. Pt. was able to ambulate at a supervision level without any assisted device. The recommendation is for home PT versus ARU.
Acute Rehab would require an authorization from [facility]. It is unlikely that this would be approved given her current functional status. Will, however, attempt if approved for [facility] and if medical team feels rehab is necessary.
Met w/ patient at bedside. Spouse also present.
Pt. reiterated that she would like to go to [facility]. We reviewed insurance criteria. We also discussed as an alternative option but also reviewed that insurance approval will be needed. Referrals made to local facilities close to her home: [facility],
[facility], [facility].
Will await responses and will see how patient progresses.
Plan is either for home w/ CT Transitional Care RN versus SNF/ARU based on medical necessity/insurance approval
--- NOTE | 2023-09-19 16:00 | PTCARENOTE ---
No acute changes. OOB in chair. Room air. Vitals stable.
[2023-09-19] MEDS: CRESTOR 40 MG PO (17:34)
[2023-09-19 17:40] LABS: Glucose - Point of Care 130 mg/dl (70-99)
--- NOTE | 2023-09-19 20:00 | PTCARENOTE ---
Received pt from cassidy RN. Pt OOB sitting in chair. Denies pain. NSR on monitor, HR 70s. Pt assist x1 to bathroom. Heart tones audible. Epicardial V-wires insulated and secured. Trace edema noted to bilateral lower extremities. Pulse ox 97% on
RA, bilateral lung sounds with crackles. Pt c/o POWERS. IS encouraged. Pt voiding spontaneously without difficulty. All surgical sites C/D/I. See worklist for full assessment and interventions.
[2023-09-19] MEDS: FLEXERIL 5 MG PO (21:04)
[2023-09-19 21:07] LABS: Glucose - Point of Care 223 mg/dl (70-99)
--- NOTE | 2023-09-20 00:24 | PTCARENOTE ---
No change in pt previous assessment. VSS. NSR on monitor. Pulse ox 95% on RA. pt resting comfortably at this time.
[2023-09-20 02:48] LABS: Hematocrit 24.7 % (37.0-47.0); Hemoglobin 8.5 g/dL (12.0-16.0); Mean Corp Hgb Conc. 34.4 g/dL (33.0-37.0); Mean Corpuscular Volume 84.3 fL (81.0-99.0); Mean Platelet Volume 10.3 fL (7.4-10.4); Platelet Count 172 10^3/uL (130-400); Red Blood Cell Count 2.93 10^6/uL (4.20-5.40); Red Cell Dist. Width 15.4 % (11.5-14.5); White Blood Cell Count 11.8 10^3/uL (4.8-10.8)
--- NOTE | 2023-09-20 03:15 | PTCARENOTE ---
No change in pt previous assessment. VSS. NSR on monitor. Pt assisted to bathroom. Denies any needs at this time.
[2023-09-20 03:20] LABS: Blood Urea Nitrogen 37 mg/dl (7-17); Calcium 8.6 mg/dl (8.4-10.2); Carbon Dioxide 24 mmol/L (22-30); Chloride 109 mmol/L (98-107); Estimated Creatinine Clearance 36 ml/min; Glucose 147 mg/dl (70-99); Potassium 4.8 mmol/L (3.5-5.1); Sodium 135 mmol/L (135-145); eGFR 47.21
[2023-09-20 03:39] VITALS: BP 110/59
[2023-09-20 05:55] VITALS: BMI 35.8
--- NOTE | 2023-09-20 06:23 | W.PN.CT ---
Today's Communication / Plan
-
-pod #4
-no issues overnight
-Cr is stable -1.2 today�(1.4 on 09/18 and 1.4-1.7 preop)
-CTs were dcd
-Maintain temporary pacer wire (will cut before d/c home)
-continue PT/OT
-Encourage use of IS, on RA
-OOB into chair/Ambulate in room
Assessment / Plan
-
Assessment:
-S/p Off pump cabg x 2 (arambula- lad, [id number])/REVH/TTFM/ LAAL (#35 clip)/Rigid sternal fixation, by Dr. Patel, 09/16/23, pod#4 � � � � � � �
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
-Hx CAD S/P PCI with stents to prox LAD, Cx and RCA, 2005
-[place]
-Preop bradycardia (sinus, 53 bpm)
-LVEF 60% per intraop JAMA
-Mild TR
-Hypertension
-Hyperlipidemia
-Class 1 obesity (BMI 33.3)
-Insulin dependent diabetes mellitus type 2 (A1C 7.2)
-CKD 3a
-Osteoarthritis
-Chronic iron deficiency anemia
-S/P Bladder tuck surgery
-S/P Bilateral breast biopsies
-S/p Tubal ligation
-S/p Hysterectomy
-S/p Ectopic
-S/P Bilateral knee injections
-S/p Laminectomy
-S/P Left knee surgery
-S/P Left inguinal hernia repair
-S/p Cataract surgery
-S/p Cholecystectomy
-S/p Tonsillectomy
-Acute intraop/postop blood loss on chronic anemia (transfused 2u PRBC total on POD #0 and POD #2)
-Acute postop thrombocytopenia (stable without active bleed)
-Acute postop atelectasis/pleural effusion
-Acute postop hypovolemia with subsequent hypervolemia
-Acute postop pericarditis (global ST-elevation, +rub; pt not in excruciating pain/asymptomatic)
Discussed patient care with: Nursing and Care Team
Subjective
Procedure
S/p Off pump cabg x 2 (arambula- lad, ed-[id number]-)/REVH/TTFM/ LAAL (#35 clip)/Rigid sternal fixation, by Dr. Patel, 09/16/23
-
Date of Service: September 20, 2023
Objective Data
-
Lab Results
09/20/23 02:43
09/20/23 02:43
PT 16.1 Sec (11.4-14.6) H 09/17/23 03:23
INR 1.31 09/17/23 03:23
APTT 35.0 Sec (23.4-35.0) 09/16/23 13:03
Vital Signs
Vital Signs
Temp Pulse Resp BP Pulse Ox
98.1 F 77 16 110/59 97
09/20/23 03:39 09/20/23 05:00 09/20/23 03:39 09/20/23 03:39 09/20/23 05:00
CT Intake/Output/Weight
09/19/23 09/19/23 09/20/23
06:59 18:59 06:59
Intake Total 350 / 2255 803 / 803
Output Total 450 / 1200 750 / 1200
Balance 350 / 1605 353 / -397 -750 / -397
SaO2: 97
Physical Exam
-
General: Awake and AOx3
Cardiovascular: Regular rate & rhythm, No Murmurs and No Rub
Respiratory: Rales (at bases, no wheeze)
Sternum: Stable
Incision: Clean, Dry and Dressing Intact
Extremities: Edema +1 (2+ DP b/l)
Data Reviewed
-
Lab Results: Results Reviewed
Medications: Active Meds Reviewed
Chest X-Ray: Report Reviewed and Image Reviewed
ECG: Report Reviewed and Image Reviewed
--- NOTE | 2023-09-20 07:29 | W.PN.CD ---
Today's Communication / Plan
-
D/C carvedilol.
Start metoprolol succinate 25 mg daily.
I recommend furosemide 40 mg IV x1 and monitor response.
Impression / Plan
-
Impression/Plan: 73 y/o female with extensive CAD/revascularization history (see below) admitted with symptoms concerning for unstable angina. CAD with previous roto-stenting of the LAD May 2002, brachytherapy and restenting 2004, proximal RCA
stent 2002, ramus PTCA 2004, and stent in proximal and mid LAD May 2012.
#Coronary artery disease:
-Chronic, progressive.
-S//P CABG x2 and LAAL (THURMAN to LAD, SVG to RI, #35 AtriClip) on 09/16/2023, Dr. Patel.
-Telemetry stable.
-Continue aspirin, rosuvastatin and amiodarone. D/C carvedilol. Start metoprolol (less BP effect).
-Continue routine postoperative care as directed by CT Surgery.
-Encourage incentive spirometry, ambulation.
-The patient may be ready for diuresis (weight up, JVD + rales, dyspnea while walking to bathroom). I recommend furosemide 40 mg IV x1 and monitor response.
#Iron deficiency anemia:
-Acute on chronic.
-Postoperative hemoglobin 7.0 on 09/18, s/p 1 uPRBC on 09/19. Hbg improved to 8.0, now improved to 8.5.
#HTN
-Stable/controlled.
#CKD:
-Baseline Creatinine 1.3-1.7, currently 1.2.
-Nephrology has signed off.
#Type 2 diabetes mellitus, HgbA1c 7.2%; management as per primary team.
#Dyslipidemia, LDL 24 --continue rosuvastatin 40 mg.
Subjective/Interval History:
Transfused yesterday.
Chest tubes discontinued.
Weight is up 5 kg from admission.
SaO2 97% on RA.
She reports dyspnea while ambulating to bathroom.
DATA:
TTE, 09/15/2023:
CONCLUSIONS
�Normal biventricular size and systolic function without regional wall motion
�abnormality. Estimated LVEF 60-65%.
�No significant valve disease.
�
�Compared to 04/27/21: no significant change.
Cardiac Catheterization, 09/15/2023:
CONCLUSIONS
1.� Right dominant circulation with a patent stent in the proximal RCA, atherosclerotic disease within the body of the left main, at least 2, possibly 3 layers of stent in the proximal LAD with a 50% in-stent restenosis lesion that culminates in a
70% napkin ring lesion in the mid stented segment, a hazy, 50% ostial ramus lesion and chronically, subtotally occluded proximal circumflex stent with NURA I flow.
2.� Severe systemic hypertension.
3.� Moderately elevated filling pressures (LVEDP = 23 mmHg at 72.1 kg).
Physical Exam
Vital Signs/Labs
Vital Signs
Temp Pulse Resp BP Pulse Ox
36.7 C 77 16 110/59 97
09/20/23 03:39 09/20/23 05:00 09/20/23 03:39 09/20/23 03:39 09/20/23 06:28
09/18/23 09/19/23 09/20/23
11:59 11:59 11:59
Actual Weight 78.2 kg 78.1 kg 77.6 kg
09/20/23 02:43
09/20/23 02:43
PT 16.1 Sec (11.4-14.6) H 09/17/23 03:23
INR 1.31 09/17/23 03:23
APTT 35.0 Sec (23.4-35.0) 09/16/23 13:03
Magnesium 2.9 mg/dl (1.6-2.3) H 09/17/23 03:23
Triglycerides 112 mg/dl (10-149) 09/13/23 04:21
LDL Cholesterol, Calc 24 mg/dl 09/13/23 04:21
VLDL Cholesterol, Calc 22 mg/dl (0-30) 09/13/23 04:21
HDL Cholesterol 29 mg/dl 09/13/23 04:21
Physical Exam
Constitutional: No acute distress and Comfortable
EENT: Anicteric and Moist mucous membranes
Cardiovascular: Rhythm & rate is regular, Pedal edema is absent, JVD present, S1S2 is normal and Murmur/rub/gallop absent
Respiratory: Wheeze Absent, Rhonchi Absent, Labored respirations (Mild.) and Crackles Present
GI: Soft, Distention absent, Flat, Non tender and Normal bowel sounds
Neuro/Psych: AO x 3
Data Reviewed
-
Date of Service: September 20, 2023
Medical Decision Making: Reviewed Test Results, Independent Historian Assessment, Test Interpretation and Review of Case with other Provider
EKG: Tracing Personally Visualized and interpreted and Report Reviewed by me
Echo: Tracing Personally Visualized and interpreted and Report Reviewed by me
X-Ray/CT/US/MRI/NUC/PET: Image Personally Visualized and interpreted and Report Reviewed by me
Medical Tests (PFT, Pathology etc): Image Personally Visualized and interpreted and Report Reviewed by me
Labs: Labs Reviewed by me
[2023-09-20 08:02] LABS: Glucose - Point of Care 153 mg/dl (70-99)
[2023-09-20] MEDS: NOVOLOG FLEXPEN-MODERATE RESISTANCE 1 UNITS SC (08:02)
[2023-09-20 08:25] VITALS: BP 136/78
[2023-09-20] MEDS: NEURONTIN 100 MG PO (08:27)
[2023-09-20] MEDS: SENOKOT-S 1 TABLET PO (08:27)
[2023-09-20] MEDS: BACTROBAN 2% OINTMENT 1 APPLIC NASAL (08:27)
[2023-09-20] MEDS: LOW STRENGTH ASPIRIN 81 MG PO (08:27)
[2023-09-20] MEDS: MUCINEX 600 MG PO (08:27)
[2023-09-20] MEDS: PROTONIX 40 MG PO (08:27)
[2023-09-20] MEDS: PLAVIX 75 MG PO (08:28)
[2023-09-20] MEDS: JARDIANCE 10 MG PO (08:28)
[2023-09-20] MEDS: JANUVIA 50 MG PO (08:28)
[2023-09-20] MEDS: PACERONE 200 MG PO (08:28)
[2023-09-20] MEDS: FEOSOL 325 MG PO (08:28)
[2023-09-20] MEDS: LASIX 40 MG IV (08:28)
[2023-09-20] MEDS: VITAMIN D3 (cholecalciferol) 25 MCG PO (08:28)
[2023-09-20] MEDS: LANTUS 0.25 UNITS SC (08:32)
[2023-09-20 09:04] VITALS: BP 134/54
[2023-09-20 09:36] VITALS: BP 134/54; PULSE 80; O2SAT 98
--- NOTE | 2023-09-20 10:44 | PTCARENOTE ---
assumed care of pt from previous shift RN, sinus rhythm on tele, VSS, epicardial pacing wire insulated. Lungs w fine crackles at bases, pox 95% on RA. +bs, tolerating PO intake, voiding spontaneously. Post op sites intact. Pt sent for 2 view CXR.
Plan of care reviewed and questions encouraged.
[2023-09-20 10:56] VITALS: BP 130/55
[2023-09-20] MEDS: TOPROL XL 25 MG PO (10:56)
[2023-09-20] MEDS: NOVOLOG FLEXPEN-MODERATE RESISTANCE 3 UNITS SC (12:12)
[2023-09-20 12:16] LABS: Glucose - Point of Care 226 mg/dl (70-99)
[2023-09-20] MEDS: NSS IV (12:45)
[2023-09-20 13:33] VITALS: BP 145/57; BP 148/55; PULSE 78; O2SAT 100
--- NOTE | 2023-09-20 13:33 | W.DCSUMMARY ---
Discharge Summary
Discharge Data
Date of Admission: 09/12/23
Date of Discharge: 09/20/23
-
Pending Results: No
Hospital Course
Primary care physician: Charles Gerard
Outpatient four h club agent: Markus Brooke
Inpatient consultants: [facility] Cardiology
Procedures:
1. off pump coronary bypass x 2 and left atrial appendage clipping
Primary Diagnosis:
1. coronary artery disease
Secondary Diagnoses:
1. Hypertension
2. Hyperlipidemia
3. Type 2 diabetes
4. Chronic kidney disease stage III
5. History of stents to LAD, ramus, and RCA
6. Osteoarthritis
7. Chronic iron deficiency anemia
8. Class 1 obesity (BMI 33.3)
9. Acute intraop/postop blood loss on chronic anemia (transfused 2u PRBC total on POD #0 and POD #2)
10. Acute postop thrombocytopenia (stable without active bleed)
11. Acute postop atelectasis/pleural effusion
12. Acute postop hypovolemia with subsequent hypervolemia
13. Acute postop pericarditis (global ST-elevation, +rub; pt not in excruciating pain/asymptomatic)
HPI: �73y/oF with known coronary disease, was admitted via the ED on 09/12/23 with complaints of chest pressure, bradycardia and mild dizziness after climbing a flight of stairs. R/O for NSTEMI and started on heparin infusion. EKG on admission was
junctional in the 40s.
Hospital course: Cardiac catheterization on 09/15/23 revealed multivessel coronary disease with in stent restenosis of LAD, occluded LCx and 50% ostial OM. Patient underwent off-pump CABG x 2 (THURMAN to LAD and saphenous vein graft to ramus 2), left
atrial appendage #35 mm clip, and sternal fixation by Dr. Patel. Patient received 1 unit of packed red blood cells intraoperatively and returned to CVICU on Levophed, insulin, and Precedex. Patient was extubated at 1730 and aspirin was given
within 6 hours of surgical procedure. Postoperative day #1, mediastinal dressings were discontinued and Plavix initiated. Systolic blood pressure in the 90s required holding of beta-gigi and initiation of midodrine. Hemoglobin was 7 on
postoperative day #2, and patient was transfused 1 unit of packed red blood cells. Blood pressure improved following transfusion and midodrine was discontinued. Repeat hemoglobin increased to 8.4. Chest tubes were discontinued. Patient was
evaluated by the diabetic nurse practitioner due to history of T2DM and A1C 7.2. Levemir was changed to Lantus as Levemir brand will no longer be manufactured after next month. Metformin was discontinued as glomerular filtration rate was 39.
Januvia was decreased from 100 mg to 50 mg and Jardiance 10 mg daily initiated. On postoperative day #3 the right IJ cordis was discontinued and patient evaluated by physical therapy. On day #4, patient was again evaluated by PT and did steps.
Patient does not meet criteria for inpatient rehab and will be discharged to home with home PT. Iron supplement will continue for 30 days due to anemia (Hb 8.1). Temporary epicardial pacing wires were clipped. Patient will be discharged to home with
transitional RN follow-up to further assess need for home PT services.
Home medication changes:
Stop these meds:
Januvia 100mg decreased to 50mg daily
Levemir brand being discontinued>transition to Glargine
Metformin due to low GFR
Omeprazole to Pantoprazole with Clopidogrel
Carvedilol to Metoprolol succinate
Verapamil
Candesartan
Doxazosin
Discharge Plan
-
Patient Disposition: Home (Routine Discharge)
Discharge Diagnosis/Procedures: CAD/CABG
Condition: Fair
Diet: Low Cholesterol, 2 Gram Sodium and Diabetic, Carb Controlled
Activity: As tolerated and No strenuous activity
Driving Restrictions: Not until seen by your Dr
Bathing Restrictions: OK to Shower
Other Services: Cardiac Rehab
Specialty Instructions: Weigh Daily- Call MD for wt gain/loss 3 lbs overnight/5 lbs in 1 week
Stop these medications:: Januvia 100mg decreased to 50mg daily
Levemir brand being discontinued>transition to Glargine
Metformin due to low GFR
Omeprazole to Pantoprazole with Clopidogrel
Carvedilol to Metoprolol succinate
Verapamil
Candesartan
Doxazosin
Activity Restrictions/Additional Instructions:
ACTIVITY:
-No strenuous activity: no heavy lifting, pushing, pulling anything over 20 pounds for one month
-continue to use stairs as tolerated
DRIVING RESTRICTIONS:
-No driving for one month or until approved by your surgeon
WOUND CARE:
-Shower daily. Use soap & water.
-No lotions, creams or powders on incision area.
DIET:
-continue a low fat/low cholesterol diet.
-IF you are diabetic, continue carb controlled diet.
CARDIAC REHAB:
-Please make appointment to start in 5-6 weeks with your local hospital program. (See Cardiac Rehabilitation Discharge Booklet).
SPECIALTY INSTRUCTIONS:
-Weigh yourself daily. Call your physician (four h club agent) for any weight gain/loss of 3 lbs overnight or 5 lbs in one week.
-REPORT any clicking noise or uneven appearance of your sternum to your surgeon immediately.
-If you smoke, you are instructed to quit. The [place] smoking hotline phone number is [phone]
Referrals:
CT Transitional Care Nurse [Outside] - in one to two days
(
The Cardiothoracic Transitional Care Nurse will call you to set up a visit in 1-2 days.)
[facility] [Outside] - 10/23/23 1:00 pm
(Cardiac Rehab Orientation appointment and� First Exercise appointment is on 10/23/23 at 1PM.
The Cardiac Rehab gym is located on the first floor of the [facility].)
Charles Key MD [Family Provider] - in four to six weeks (Please make an appointment in four to six weeks. )
Melissa Morin NP [Specified Professional Personl] - 10/27/23 2:00 pm
Ruiz Patel MD [Active] - 10/13/23 9:30 am
Justin Pozo MD [Active] - 11/12/23 10:20 am (Cardiology followup appointment)
Prescriptions:
New
clopidogrel 75 mg Tablet
75 mg PO DAILY Qty: 30 1RF
pantoprazole 40 mg Tablet,Delayed Release (Dr/Ec)
40 mg PO DAILY Qty: 30 0RF
Januvia 50 mg Tablet
50 mg PO DAILY Qty: 30 1RF
acetaminophen 325 mg Tablet
650 mg PO Q4HPRN PRN (Reason: mild pain,headache,temp >101F ) Qty: 0 0RF
metoprolol succinate 25 mg Tablet Extended Release 24 Hr
25 mg PO DAILY Qty: 30 1RF
cyclobenzaprine 10 mg Tablet
5 mg PO HS Qty: 30 0RF
insulin glargine [Lantus Solostar U-100 Insulin] 100 unit/mL (3 mL) insulin pen
25 unit SC DAILY Qty: 15 0RF
Continued
ferrous sulfate [Iron (ferrous sulfate)] 325 MG tablet
325 mg PO Daily
furosemide [Lasix] 40 mg Tablet
40 mg PO Q48H Qty: 0 0RF
therapeutic multivitamin Tablet
1 tab PO DAILY Qty: 0 0RF
aspirin 81 mg Tablet,Delayed Release (Dr/Ec)
81 mg PO DAILY Qty: 0 0RF
gabapentin 100 mg Capsule
100 mg PO HS Qty: 0 0RF
rosuvastatin [Crestor] 40 mg Tablet
40 mg PO QPM Qty: 0 0RF
cholecalciferol (vitamin D3) [Vitamin D3] 25 mcg (1,000 unit) Tablet
25 mcg PO DAILY Qty: 0 0RF
Jardiance 10 mg Tablet
10 mg PO DAILY Qty: 0 0RF
Discontinued
metformin 500 MG tablet
1,000 mg PO DAILY@0800
candesartan 4 mg Tablet
4 mg PO BID Qty: 0
Januvia 50 MG tablet
100 mg PO DAILY
carvedilol 12.5 MG tablet
25 mg PO BID 0RF
omeprazole 40 mg Capsule,Delayed Release(Dr/Ec)
40 mg PO DAILY
verapamil 240 mg Tablet Extended Release
240 mg PO DAILY
doxazosin 2 mg Tablet
2 mg PO DAILY
Levemir FlexPen 100 unit/mL (3 mL) Insulin Pen
28 unit SC AMHS
Levemir FlexPen
16 units SC DAILY@18
Discharge Orders:
Discharge Patient (As Directed); Ordered 09/20/23
Ordered By: Diana Wyatt
Care Plan Goals
Care Plan Goals:
Problem: Readiness for enhanced knowledge related to diagnosis and treatment plan
Goal: Understand your diagnosis and treatment plan needs, including medications if applicable.
Instructions: Know your diagnosis, underlying causes and treatment plan options, including medications if applicable. Consult with your health care team to learn about your diagnosis and treatment plan, including medications if applicable.
--- NOTE | 2023-09-20 15:15 | PTCARENOTE ---
pacing wire cut. post op dressing removed. assisted pt w shower and dressed for discharge.
--- NOTE | 2023-09-20 16:04 | PTCARENOTE ---
discharge instructions, medications and follow up appointments reviewed w the pt and her family, questions encouraged.
== END 2023-09-20 16:09 | disposition home or self-care (01) | DRG 234 ==
LOC: CVICU 22:36
PROVIDERS: Anesthesiology; Clinical Nurse Specialist Acute Care; Clinical Nurse Specialist Family Health; Hospitalist; Internal Medicine; Internal Medicine Cardiovascular Disease; Nurse Practitioner; Physician Assistant; Physician Assistant Medical; ADMITTING PHYSICIAN Hospitalist; ATTENDING PHYSICIAN Thoracic Surgery (Cardiothoracic Vascular Surgery); CONSULT PHYSICIAN Internal Medicine; CONSULT PHYSICIAN Internal Medicine Critical Care Medicine; CONSULT PHYSICIAN Specialist; EMERGENCY PHYSICIAN Emergency Medicine; FAMILY PHYSICIAN Internal Medicine
PROC: B2111ZZ Fluoroscopy of Multiple Coronary Arteries using Low Osmolar Contrast (ICD-10-PCS; 2023-09-15)
PROC: 4A023N7 Measurement of Cardiac Sampling and Pressure, Left Heart, Percutaneous Approach (ICD-10-PCS; 2023-09-15)
PROC: 021009W Bypass Coronary Artery, One Artery from Aorta with Autologous Venous Tissue, Open Approach (ICD-10-PCS; 2023-09-16)
PROC: 30233N1 Transfusion of Nonautologous Red Blood Cells into Peripheral Vein, Percutaneous Approach (ICD-10-PCS; 2023-09-16)
PROC: 02100Z9 Bypass Coronary Artery, One Artery from Left Internal Mammary, Open Approach (ICD-10-PCS; 2023-09-16)
PROC: 06BP4ZZ Excision of Right Saphenous Vein, Percutaneous Endoscopic Approach (ICD-10-PCS; 2023-09-16)
PROC: B24BZZ4 Ultrasonography of Heart with Aorta, Transesophageal (ICD-10-PCS; 2023-09-16)
PROC: 02L70CK Occlusion of Left Atrial Appendage with Extraluminal Device, Open Approach (ICD-10-PCS; 2023-09-16)
DX: I25.110 Atherosclerotic heart disease of native coronary artery with unstable angina pectoris (principal); D62 Acute posthemorrhagic anemia; J98.11 Atelectasis; I30.8 Other forms of acute pericarditis; N17.9 Acute kidney failure, unspecified; E87.20 Acidosis, unspecified; T82.855A Stenosis of coronary artery stent, initial encounter; J90 Pleural effusion, not elsewhere classified; I12.9 Hypertensive chronic kidney disease with stage 1 through stage 4 chronic kidney disease, or unspecified chronic kidney disease; N18.31 Chronic kidney disease, stage 3a; E78.00 Pure hypercholesterolemia, unspecified; E11.22 Type 2 diabetes mellitus with diabetic chronic kidney disease; D50.9 Iron deficiency anemia, unspecified; D69.59 Other secondary thrombocytopenia; E86.1 Hypovolemia; E87.70 Fluid overload, unspecified; I44.0 Atrioventricular block, first degree; R00.1 Bradycardia, unspecified; E11.65 Type 2 diabetes mellitus with hyperglycemia; E11.40 Type 2 diabetes mellitus with diabetic neuropathy, unspecified; Y83.1 Surgical operation with implant of artificial internal device as the cause of abnormal reaction of the patient, or of later complication, without mention of misadventure at the time of the procedure; I25.82 Chronic total occlusion of coronary artery; I07.1 Rheumatic tricuspid insufficiency; E66.9 Obesity, unspecified; M19.90 Unspecified osteoarthritis, unspecified site; Z68.33 Body mass index [BMI] 33.0-33.9, adult; Z95.5 Presence of coronary angioplasty implant and graft; Z79.4 Long term (current) use of insulin; Z79.82 Long term (current) use of aspirin
CPT/HCPCS: 71045; 71046; 80048; 80053; 80061; 81003; 82330; 82565; 82805; 82947; 82962; 83036; 83735; 84132; 84302; 84484; 84520; 85014; 85018; 85025; 85027; 85049; 85610; 85730; 86850; 86900; 86901; 86920; 93005; 93306; 93312; 93320; 93325; 93458; 93880; 94002; 96365; 97110; 97116; 97162; 97164; 97165; 97530; 97535; 99285; C1713; C1760; C1894; P9016; P9045; Q9967

== ENCOUNTER → 2023-09-26 17:31 | Outpatient (REF) | payer OTHER, SELFPAY | LOC: RAD 17:31 | PROVIDERS: ATTENDING PHYSICIAN Nurse Practitioner Acute Care; FAMILY PHYSICIAN Internal Medicine | DX: J90 Pleural effusion, not elsewhere classified (principal); Z98.890 Other specified postprocedural states; R06.02 Shortness of breath | CPT/HCPCS: 71046 ==

== ENCOUNTER 2023-11-03 11:15 | Emergency (ER) | payer OTHER, SELFPAY ==
[2023-11-03] VITALS (13 sets, daily range): BP systolic 159–216; BP diastolic 62–81; BMI 38.7
--- NOTE | 2023-11-03 11:53 | ED.GENMED ---
History of Present Illness
General
Chief Complaint: Chest Pain
Source: patient
Exam Limitations: none
Time Seen by Provider: 11/03/23 11:49
Nursing documentation reviewed up to this point in time: agreed with
Travel History
Have you had any contact with someone who has COVID-19?: No
Do you have any symptoms of coronavirus? Fever > 100 degrees, chills, cough, shortness of breath, sore throat, loss of taste or smell, muscle aches, or headache?: No
History of Present Illness
History of Present Illness:
73-year-old female with history of sleep apnea with CPAP, A-fib, CHF, HLD, HTN, GERD, renal insufficiency, IDDM, CABG x 2 vessels 09/15/23 with acute postop pericarditis (global ST elevation, plus rub, asymptomatic) states 5 p.m yesterday developed
6/10 pain in left upper chest area, took Tylenol and pain was gone by 8 p.m.
Went to Cardiac Rehab today, informed of incident and sent here for evaluation. Has had no further chest pain
Pt denies CP, SOB now.
Past History
Past History
ED Past Medical History: CAD, CHF, HTN, Hypercholesterolemia, IDDM, Other (CKD) and Other (Anemia)
ED Past Surgical History: Cardiac (CABG x 2 vessels on 09/15/2023, previous cardiac stents) and Other (Lumbar spinal fusion)
Social History
Tobacco: Non-smoker
Alcohol: None
Drug: None
Personal:
Living: with family
Family History
Family History: Hypertension and Other (father with a stroke)
Review of Systems
Review of Systems
Allergies reviewed?: Yes
All Other Systems: ROS reviewed and negative except as documented in HPI and ROS
Constitutional: Denies fever or fatigue
Respiratory: Denies trouble breathing
Cardiac: Reports chest pain (as noted in HPI); Denies diaphoresis, palpitations or syncope
ABD/GI: Denies abdominal pain, nausea, vomiting, diarrhea or anorexia
: Denies dysuria, frequency, difficulty voiding or urgency
Musculoskeletal: Reports no symptoms
Skin: Reports no symptoms
Neurological: Reports no symptoms
Phy Exam
Physical Exam
Physical Exam:
GENERAL: No acute distress. A&Ox3.
CONSTITUTIONAL: Afebrile.
EYES: Clear, conjunctivae normal
ENMT: moist mucus membranes, Pharynx nl
RESPIRATORY: Regular respirations, nonlabored, lungs clear.
CARDIOVASCULAR: Regular rate and rhythm, no murmurs, no rubs.
GI: Soft, nontender, normal BS
MUSCULOSKELETAL: Moves with ease. Well perfused. No edema
SKIN: Warm, dry, normal
PSYCH: Normal mood and affect. Well kept, interactive and appropriate
NEUROLOGIC: Awake, alert and oriented. No focal neurological deficits
Scores
Heart Score for Chest Pain Patients
STEMI patient?: No
History: Slightly or Non-Suspicious
ECG: Normal
Age: >/= 65 years
Risk Factors: >/= 3 Risk Factors or History of CAD
Troponin: </= Normal Limit
Heart Score for Chest Pain Patients: 4
Heart Score Risk: 20.3% MACE over next 6 weeks
Course
Orders/Labs/Results
Orders:
Orders
11/03/23 11:17
EKG [Electrocardiogram (*1)] Urgent
Reason for Study: Chest Pain
11/03/23 11:18
EKG- Treatment ONCE
11/03/23 11:58
CR Chest - 2 Views Urgent
Comment:
Reason For Exam: Left CP (CABG 09/15/23)
11/03/23 12:00
Complete Blood Count/With Diff Urgent
Comprehensive Metabolic Panel Urgent
PTT Urgent
Prothrombin Time Urgent
Troponin I Urgent
11/03/23 14:57
Troponin I Urgent
11/03/23 14:59
Electrocardiogram (*1) Urgent
Reason for Study: Chest Pain
EKG- Treatment ONCE
11/03/23 17:14
Candesartan Cilexetil [Atacand] 4 mg PO NOW STA
Abnormal Lab Results
11/03/23 11/03/23
12:00 14:57
RBC 3.92 L 10^6/uL
(4.20-5.40)
Hgb 10.7 L g/dL
(12.0-16.0)
Hct 33.2 L %
(37.0-47.0)
MCHC 32.2 L g/dL
(33.0-37.0)
RDW 14.6 H %
(11.5-14.5)
Glucose 165 H mg/dl
(70-99)
Troponin I 0.064 H* ng/ml 0.059 H* ng/ml
11/03/23 12:00
11/03/23 12:00
Vital Signs
Initial and Last Documented VS:
Initial Vital Signs
Temp Pulse Resp BP Pulse Ox
98.0 F 58 16 187/81 98
11/03/23 11:20 11/03/23 11:20 11/03/23 11:20 11/03/23 11:20 11/03/23 11:20
Last Documented Vital Signs
Temp Pulse Resp BP Pulse Ox
98.0 F 69 17 159/76 99
11/03/23 11:20 11/03/23 18:39 11/03/23 17:15 11/03/23 18:39 11/03/23 17:15
MDM/Problems Addressed
Differential Diagnosis Includes:
nonspecific CP, MA, pericarditis, pleura effusion
MDM/Problems Addressed:
73-year-old female with history of sleep apnea with CPAP, A-fib, CHF, HLD, HTN, GERD, renal insufficiency, IDDM, CABG x 2 vessels 09/15/23 with acute postop pericarditis (global ST elevation, plus rub, asymptomatic) states 5 p.m yesterday developed
6/10 pain in left upper chest area, took Tylenol and pain was gone by 8 p.m. There were no other associated symptoms, it did not prevent her from doing her usual activity.
Went to Cardiac Rehab today, informed of incident and sent here for evaluation. Has had no further chest pain
Pt denies CP, SOB now. NAD
EKG NSR
1250 PM
Troponin #1 elevated at 0.064
CBC with no clinically significant abnormality
CMP normal
Chest x-ray NAD
3:38 PM
Troponin #2 improved 0.059
EKG #2 unchanged, NSR
Takes Lasix 40 mg every other day, Metoprolol 25 mg daily, Remains hypertensive: 192/[address] Cherry. Lissette Noland in room 24, 73 y/o female pt of Dr. Amin with extensive CAD/revascularization history (see below) had off pump CABG x2 and LAAL (THURMAN to LAD, SVG to RI, #35 AtriClip) on 09/16/2023, Dr. Patel. Presents today from
cardiac rehab who sent her her when she told them she had episode of left chest pain last evening 5 p.m. relief by 8 p.m. after Tylenol. No chest pain since
Today's troponin #2 trending down, EKGs NSR
4:15 PM
BP 184/74 denies significant headache 'just a little' pain in back of head, denies chest pain. Has f/u appt. with Cardiology Dr. Amin on 11/26
BP has remained with systolic 180's-190's
Case discussed with Dr. Franklin
Consulted Cardiology Dr. Reynoso who reviewed chart and records, recommends starting back on Candesartan 4 mg BID, if BP improves, can discharge and he made appointment for Friday (2 days) for follow up in office.
6:35 pm
BP 159/76 stable for discharge
Chronic conditions affecting care: DM, HTN and Arrhythmia (afib)
*EKG
EKG Intrepretation Date: 11/03/23
Interpretation: normal
Rate: normal
Rhythm: sinus
[place]: normal axis
Interval: normal interval
QRS Pattern: normal QRS
Ischemia: no ischemia
*Critical Care Note
Total Time (30-74mins, 75-104mins- exclusive of procedures): Not Applicable
ED Attending Note
-
Portions of this chart may have been created with voice recognition software.� Occasional wrong word or��sound alike� substitutions may have occurred due to the inherent limitations of voice recognition software.
Discharge Plan
Departure
Patient Disposition: Home (Routine Discharge)
Date of Disposition: 11/03/23
Time of Disposition: 18:41
Patient with high blood pressure during this ER visit?: Yes
Condition: Good
Discharge Problem:
Atypical chest pain
Instructions: BLOOD PRESSURE, Chest Pain
Prescriptions:
New
candesartan 4 mg tablet
4 mg PO BID Qty: 60 0RF
No Action
ferrous sulfate [Iron (ferrous sulfate)] 325 MG tablet
325 mg PO Daily
clopidogrel 75 mg Tablet
75 mg PO DAILY Qty: 30 1RF
pantoprazole 40 mg Tablet,Delayed Release (Dr/Ec)
40 mg PO DAILY Qty: 30 0RF
acetaminophen 325 mg Tablet
650 mg PO Q4HPRN PRN (Reason: mild pain,headache,temp >101F ) Qty: 0 0RF
furosemide [Lasix] 40 mg Tablet
40 mg PO Q48H Qty: 0 0RF
therapeutic multivitamin Tablet
1 tab PO DAILY Qty: 0 0RF
aspirin 81 mg Tablet,Delayed Release (Dr/Ec)
81 mg PO DAILY Qty: 0 0RF
gabapentin 100 mg Capsule
100 mg PO HS Qty: 0 0RF
rosuvastatin [Crestor] 40 mg Tablet
40 mg PO QPM Qty: 0 0RF
cholecalciferol (vitamin D3) [Vitamin D3] 25 mcg (1,000 unit) Tablet
25 mcg PO DAILY Qty: 0 0RF
Jardiance 10 mg Tablet
10 mg PO DAILY Qty: 0 0RF
metoprolol succinate 25 mg Tablet Extended Release 24 Hr
25 mg PO DAILY Qty: 30 1RF
Januvia 50 mg tablet
50 mg PO NOON
insulin glargine [Lantus Solostar U-100 Insulin] 100 unit/mL (3 mL) insulin pen
25 unit SC QPM
Referrals:
Charles Key MD [Family Provider] -
Leeann Howe CRNP [Specified Professional Personl] - Keep scheduled appt
Activity Restrictions/Additional Instructions:
As we discussed, you have a 10 a.m. appointment with Leeann Howe on Saturday 11/04.
I sent a prescription to your pharmacy for Candesartan 4 mg to take twice daily. Start it tomorrow as you were given a dose here today.
Return here IMMEDIATELY for return of chest pain, chest pain with breaking out in a sweat, nausea, vomiting, weakness or dizziness or feeling worse in any way.
Interventions
Interventions:
*Risk Screen - Suicide Last Done: 11/03/23 11:56
*General Assessment Last Done: 11/03/23 11:56
*Neglect/Abuse Screening Last Done: 11/03/23 11:56
ED- Fall Risk Assessment Last Done: 11/03/23 11:52
*ED COVID-19 Vaccine History Last Done: 11/03/23 11:20
ED- Cardiac Assessment Last Done: 11/03/23 11:52
[2023-11-03 12:07] LABS: % Basophils 0.4 % (0-2); % Eosinophils 3.1 % (0-6); % Immature Granulocytes 0.3 % (0-0.5); % Lymphocytes 28.8 % (20.5-51.1); % Monocytes 5.3 % (1.7-9.3); % Neutrophils 62.1 % (42.2-75.2); Absolute Eosinophils 0.2 10^3/uL (0-0.7); Absolute Lymphocytes 2.2 10^3/uL (1.2-3.4); Absolute Monocytes 0.4 10^3/uL (0.1-0.6); Absolute Neutrophils 4.8 10^3/uL (1.4-6.5); Hematocrit 33.2 % (37.0-47.0); Hemoglobin 10.7 g/dL (12.0-16.0); Mean Corp Hgb Conc. 32.2 g/dL (33.0-37.0); Mean Corpuscular Hgb 27.3 pg (27.0-31.0); Mean Corpuscular Volume 84.7 fL (81.0-99.0); Mean Platelet Volume 10.2 fL (7.4-10.4); Nucleated Red Blood Cells % 0 %; Platelet Count 234 10^3/uL (130-400); Red Blood Cell Count 3.92 10^6/uL (4.20-5.40); Red Cell Dist. Width 14.6 % (11.5-14.5); White Blood Cell Count 7.7 10^3/uL (4.8-10.8)
[2023-11-03 12:17] LABS: INR 1.05; PT 13.5 Sec (11.4-14.6)
[2023-11-03 12:18] LABS: APTT 32.7 Sec (23.4-35.0)
[2023-11-03 12:21] LABS: ALT (SGPT) 17 U/L (0-35); AST (SGOT) 27 U/L (14-36); Albumin 3.6 g/dl (3.5-5.0); Alkaline Phosphatase 101 U/L (38-126); Blood Urea Nitrogen 17 mg/dl (7-17); Calcium 9.7 mg/dl (8.4-10.2); Carbon Dioxide 30 mmol/L (22-30); Chloride 103 mmol/L (98-107); Estimated Creatinine Clearance 45 ml/min; Glucose 165 mg/dl (70-99); Potassium 3.9 mmol/L (3.5-5.1); Sodium 136 mmol/L (135-145); Total Bilirubin 0.4 mg/dl (0.2-1.3); Total Protein 6.7 g/dl (6.3-8.2); eGFR 58.75
[2023-11-03 12:36] LABS: Troponin I 0.064 ng/ml
[2023-11-03 15:34] LABS: Troponin I 0.059 ng/ml
[2023-11-03] MEDS: ATACAND 4 MG PO (17:51)
== END 2023-11-03 18:54 | disposition home or self-care (01) ==
LOC: EMR 11:15
PROVIDERS: Registered Nurse; EMERGENCY PHYSICIAN Emergency Medicine; FAMILY PHYSICIAN Internal Medicine
DX: R07.89 Other chest pain (principal); I13.0 Hypertensive heart and chronic kidney disease with heart failure and stage 1 through stage 4 chronic kidney disease, or unspecified chronic kidney disease; I50.9 Heart failure, unspecified; N18.9 Chronic kidney disease, unspecified; E11.22 Type 2 diabetes mellitus with diabetic chronic kidney disease; I25.10 Atherosclerotic heart disease of native coronary artery without angina pectoris; K21.9 Gastro-esophageal reflux disease without esophagitis; Z95.5 Presence of coronary angioplasty implant and graft
CPT/HCPCS: 71046; 80053; 84484; 85025; 85610; 85730; 93005; 99283

== ENCOUNTER 2023-11-03 12:21 | Outpatient (RCR) | payer OTHER, SELFPAY ==
[2023-10-23 14:08] LABS: Glucose - Point of Care 135 mg/dl (70-99)
[2023-10-23 14:46] LABS: Glucose - Point of Care 99 mg/dl (70-99)
[2023-10-28 10:22] LABS: Glucose - Point of Care 121 mg/dl (70-99)
[2023-10-28 11:18] LABS: Glucose - Point of Care 113 mg/dl (70-99)
[2023-10-31 11:00] LABS: Glucose - Point of Care 175 mg/dl (70-99)
[2023-10-31 12:00] LABS: Glucose - Point of Care 117 mg/dl (70-99)
== END 2023-11-03 23:59 | disposition home or self-care (01) ==
LOC: CRHB 12:21
PROVIDERS: ATTENDING PHYSICIAN Internal Medicine
DX: I25.10 Atherosclerotic heart disease of native coronary artery without angina pectoris (principal); Z95.1 Presence of aortocoronary bypass graft
CPT/HCPCS: 71046; 80053; 82962; 84484; 85025; 85610; 85730; 93005; G0422; G0423

== ENCOUNTER 2023-11-06 17:50 | Inpatient (IN) | payer OTHER, SELFPAY ==
[2023-11-06] VITALS (19 sets, daily range): BP systolic 110–203; BP diastolic 52–78; PULSE 58–65; BMI 33.2; BMI 31.2
[2023-11-06 15:29] LABS: % Basophils 0.3 % (0-2); % Eosinophils 1.7 % (0-6); % Immature Granulocytes 0.2 % (0-0.5); % Lymphocytes 23.8 % (20.5-51.1); % Monocytes 4.3 % (1.7-9.3); % Neutrophils 69.7 % (42.2-75.2); Absolute Eosinophils 0.2 10^3/uL (0-0.7); Absolute Lymphocytes 2.1 10^3/uL (1.2-3.4); Absolute Monocytes 0.4 10^3/uL (0.1-0.6); Hematocrit 32.9 % (37.0-47.0); Hemoglobin 10.7 g/dL (12.0-16.0); Mean Corp Hgb Conc. 32.5 g/dL (33.0-37.0); Mean Corpuscular Hgb 27.4 pg (27.0-31.0); Mean Corpuscular Volume 84.1 fL (81.0-99.0); Mean Platelet Volume 10.4 fL (7.4-10.4); Nucleated Red Blood Cells % 0 %; Platelet Count 217 10^3/uL (130-400); Red Blood Cell Count 3.91 10^6/uL (4.20-5.40); Red Cell Dist. Width 14.6 % (11.5-14.5); White Blood Cell Count 8.7 10^3/uL (4.8-10.8)
[2023-11-06 15:41] LABS: D-Dimer 1.62 ug/mlFEU (0.00-0.50)
[2023-11-06 15:54] LABS: ALT (SGPT) 19 U/L (0-35); AST (SGOT) 35 U/L (14-36); Albumin 3.7 g/dl (3.5-5.0); Alkaline Phosphatase 105 U/L (38-126); Blood Urea Nitrogen 20 mg/dl (7-17); Calcium 10.1 mg/dl (8.4-10.2); Carbon Dioxide 30 mmol/L (22-30); Chloride 101 mmol/L (98-107); Estimated Creatinine Clearance 41 ml/min; Glucose 117 mg/dl (70-99); Potassium 4.3 mmol/L (3.5-5.1); Sodium 138 mmol/L (135-145); Total Bilirubin 0.3 mg/dl (0.2-1.3); Total Protein 6.8 g/dl (6.3-8.2); eGFR 58.75
[2023-11-06] MEDS: LOW STRENGTH ASPIRIN 324 MG PO (16:09)
--- NOTE | 2023-11-06 16:11 | ED.GENMED ---
History of Present Illness
General
Chief Complaint: Chest Pain
Source: patient, records and family (Son-in-law)
Exam Limitations: none
Time Seen by Provider: 11/06/23 14:58
Nursing documentation reviewed up to this point in time: agreed with
Travel History
Have you had any contact with someone who has COVID-19?: No
Do you have any symptoms of coronavirus? Fever > 100 degrees, chills, cough, shortness of breath, sore throat, loss of taste or smell, muscle aches, or headache?: No
History of Present Illness
History of Present Illness:
73-year-old female with a past medical history of hypertension, hyperlipidemia, diabetes, CHF, atrial fibrillation, CAD status post CABG who presents to the emergency room for evaluation of chest pain. Patient had CABG with Dr. Patel on
09/18/2023, complicated by post operative pericarditis. 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 Amin. She comes today for chest pain that she notably was having some chest pains a few days ago was seen in this emergency room, ruled out for acute NM and
was discharged to follow-up with cardiology in the office. She presents for another episode of chest pain feels similar to Friday. She says that she was laying down last night around 11 PM and she had severe sharp chest pain in the left chest that
radiated to the left shoulder. She says that she checked her blood pressure and it was elevated. She says that this episode lasted for about 2 hours and then ultimately resolved. She was able to get back to sleep. This morning she woke up and
was chest pain-free. Around 10 AM she started with chest pain again this time more a burning sensation in the epigastric region rating up the center of her chest. Symptoms have been constant all day. She denies associated shortness of breath.
She denies any coughing. She denies any fevers or chills. Denies any swelling or pain in the legs. Denies any nausea, vomiting, diaphoresis. She denies any other complaints.
Past History
Past History
ED Past Medical History: CAD, CHF, HTN, Hypercholesterolemia, IDDM, Other (CKD) and Other (Anemia)
ED Past Surgical History: Cardiac (CABG x 2 vessels on 09/15/2023, previous cardiac stents) and Other (Lumbar spinal fusion)
Social History
Tobacco: Non-smoker
Alcohol: None
Drug: None
Personal:
Living: with family
Family History
Family History: Hypertension and Other (father with a stroke)
Review of Systems
Review of Systems
All Other Systems: ROS reviewed and negative except as documented in HPI and ROS
Constitutional: Denies fever or chills
EENT: Denies sore throat or runny nose
Respiratory: Denies cough or trouble breathing
Cardiac: Reports chest pain; Denies diaphoresis or palpitations
ABD/GI: Denies abdominal pain, nausea or vomiting
: Denies dysuria, frequency or flank pain
Musculoskeletal: Denies edema, neck pain or back pain
Neurological: Denies dizzy, headache, weakness or numbness
Phy Exam
Physical Exam
Physical Exam:
General: Awake, alert, oriented x3; no acute distress
Head: Normocephalic, atraumatic
Eyes: Conjunctiva normal, sclera anicteric
Throat: Airway intact, handling secretions
Neck: Trachea midline, supple without meningismus
Lungs: Clear to auscultation bilaterally, no wheezing, rales, rhonchi
Heart: Regular rate and rhythm, no murmurs, gallops, or rubs; healing chest incision no signs of infection
Abd: Soft, non distended, nontender
Neuro: Cranial nerves grossly intact, speech fluid
Skin: no rash
Extremities: No edema in extremities, equal pulses in all extremities
Scores
Heart Failure Risk
Heart Failure Risk Score: Not Applicable
Heart Score for Chest Pain Patients
STEMI patient?: No
History: Moderately Suspicious
ECG: Nonspecific Repolarization
Age: >/= 65 years
Risk Factors: >/= 3 Risk Factors or History of CAD
Troponin: >/= 3 x Normal Limit
Heart Score for Chest Pain Patients: 8
Heart Score Risk: 72.7 % MACE over next 6 weeks
Withdrawal Assessment of Alcohol
Withdrawal Assessment Completed?: Not applicable
Course
Orders/Labs/Results
Orders:
Orders
11/06/23 13:53
EKG [Electrocardiogram (*1)] Urgent
Reason for Study: Chest Pain
EKG- Treatment ONCE
11/06/23 15:01
CR Chest - 2 Views Urgent
Comment:
Reason For Exam: chest pain
11/06/23 15:13
Complete Blood Count/With Diff Urgent
Comprehensive Metabolic Panel Urgent
D-Dimer Urgent
Troponin I Urgent
11/06/23 16:04
CARDIOLOGY CONSULT Urgent
Consulting Provider: Garrick Zuniga
Was physician already notified: Yes
Aspirin Chewable [Low Strength Aspirin] 324 mg PO NOW STA
11/06/23 16:10
Heparin 4,000 units IV NOW STA
Nitroglycerin Sublingual [Nitrostat (Sublingual)] 0.4 mg SL NOW STA
Pharmacy Request to Place See Dose Instructions PO NOW STA
Discontinue all Active Warfarin orders?: Yes
Nursing to Place Non Medication Order As Directed
Physician Order: PTT 6 hours after initial start of Heparin infusion
11/06/23 16:11
Echo 2D MMode Color/Doppler Routine
Reason for Study: chest pain, elevated troponin
11/06/23 16:13
Add On- LAB Urgent
Tests Added?: PTT
11/06/23 16:15
Heparin 35557 Units/250 ml 25,000 units in 250 ml IV PER PROTOCOL
Weight to be used for heparin protocol in kilograms (kg):: 72
Protocol:: Cardiac Tx/Acute Coronary
PTT Goal Range to be used:: PTT 73 to 111 seconds
Order type:: Initial
INITIAL Infusion Dose (UNITS/KG/hr) & then follow protocol:: 12 units/kg/hr
Infusion Dose in UNITS/hr & then follow protocol (UNITS/hr):: 850
INFUSION RATE in mL/hr & then follow protocol (mL/hr):: 8.5
PTT less than or equal to 64 seconds:: Increase rate by 200 units/hr (+ 2 mL/hr)
PTT 64.1 to 72.9 seconds:: Increase rate by 100 units/hr (+ 1 mL/hr)
PTT 73 to 111 seconds:: Target Range. No change in rate.
PTT 111.1 to 130.9 seconds:: Decrease rate by 100 units/hr (- 1 mL/hr)
PTT 131 to 199.9 seconds:: HOLD for 1 hr. Then decrease rate by 200 units/hr (- 2 mL/hr)
PTT greater than or equal to 200 seconds:: HOLD for 2 hrs & Notify Provider. Then decrease by 200 units/hr (-
2 mL/hr)
Lab follow-up:: Each change, PTT q6h until 2 consecutive are therapeutic. Then PTT
daily.
11/06/23 17:[address] See Dose Instructions IV DIRECTED
11/06/23 18:13
Troponin I Urgent
Abnormal Lab Results
11/06/23
15:13
RBC 3.91 L 10^6/uL
(4.20-5.40)
Hgb 10.7 L g/dL
(12.0-16.0)
Hct 32.9 L %
(37.0-47.0)
MCHC 32.5 L g/dL
(33.0-37.0)
RDW 14.6 H %
(11.5-14.5)
D-Dimer 1.62 H ug/mlFEU
(0.00-0.50)
BUN 20 H mg/dl
(7-17)
Glucose 117 H mg/dl
(70-99)
Troponin I 1.220 H* ng/ml
11/06/23 15:13
11/06/23 15:13
Vital Signs
Initial and Last Documented VS:
Initial Vital Signs
Temp Pulse Resp BP Pulse Ox
36.4 C 67 18 166/73 98
11/06/23 13:53 11/06/23 13:53 11/06/23 13:53 11/06/23 13:53 11/06/23 13:53
Last Documented Vital Signs
Temp Pulse Resp BP Pulse Ox
36.4 C 67 18 166/73 98
11/06/23 13:53 11/06/23 13:53 11/06/23 13:53 11/06/23 13:53 11/06/23 13:53
MDM/Problems Addressed
Differential Diagnosis Includes:
ACS, pericarditis/myocarditis, GERD, costochondritis/chest wall pain; PE somewhat less likely, aortic dissection less likely
MDM/Problems Addressed:
73-year-old female with history as above presents to the emergency room for the second time this week for chest pain status post CABG a month ago. Hypertensive but otherwise normal vitals. Physical exam as above. Plan placed IV check labs
including CBC and CMP will check coags, D-dimer, troponins. Check chest x-ray. EKG shows no STEMI appears very similar to prior. Monitor closely reassess after the above. Will discuss with cardiology team pending initial assessment.
Labs reviewed: CBC shows stable anemia, CMP shows no clinically significant abnormalities. Chest x-ray shows no acute disease. Her troponin is positive at 1.22�this is significantly increased from troponin of 0.062 on Friday. Call placed to
cardiology to discuss�recommended starting on heparin and will dose with aspirin. Will give some nitroglycerin as she is hypertensive so she is still having some chest pain. They will consult on the patient. Recommended admission to hospitalist.
Case discussed with hospitalist for admission.
Chronic conditions affecting care:
CAD
Acute Exacerbation and/or Progression of Chronic Illness:
Acutely hypertensive treated with nitroglycerin
Acute Exacerbation and/or Progression of Chronic Illness: HTN
*Radiology
Radiology exam reviewed: radiology read reviewed
*Pulse Oximetry
Patient hypoxic: no
*EKG
Interpreted by ED Provider?: Yes
Comparison EKG: no changes
Heart Rate: 62
Rate: normal
Rhythm: sinus
Boulevard: normal axis
Interval: normal interval
QRS Pattern: normal QRS
Ischemia: ST depression (Lateral ST depressions appear essentially similar to prior)
*Critical Care Note
Total Time (30-74mins, 75-104mins- exclusive of procedures): Not Applicable
Data Reviewed
Review of Other/Old Records Reveals: Labs, Records, Operative Reports and Discharge Summary
Source: patient, records and family
Patient Management
Discussion with other providers: Hospitalist (Discussed with hospitalist) and Coagulant Dipper (Discussed with cardiology)
Escalation/DeEscalation of care consider admission/obs:
Admission indicated
ED Attending Note
-
Portions of this chart may have been created with voice recognition software.� Occasional wrong word or��sound alike� substitutions may have occurred due to the inherent limitations of voice recognition software.
Discharge Plan
Departure
Patient Disposition: Admit
Date of Disposition: 11/06/23
Time of Disposition: 16:34
Admit to doctor: Jerardo
Presentation/result/management discussed w/ accepting MD/DO: Hospitalist
Discharge Problem:
Non-ST elevation NM (NSTEMI)
Prescriptions:
No Action
ferrous sulfate [Iron (ferrous sulfate)] 325 MG tablet
325 mg PO BID
clopidogrel 75 mg Tablet
75 mg PO DAILY Qty: 30 1RF
pantoprazole 40 mg Tablet,Delayed Release (Dr/Ec)
40 mg PO DAILY Qty: 30 0RF
acetaminophen 325 mg Tablet
650 mg PO Q4HPRN PRN (Reason: mild pain,headache,temp >101F ) Qty: 0 0RF
furosemide [Lasix] 40 mg Tablet
40 mg PO Q48H Qty: 0 0RF
therapeutic multivitamin Tablet
1 tab PO DAILY Qty: 0 0RF
aspirin 81 mg Tablet,Delayed Release (Dr/Ec)
81 mg PO DAILY Qty: 0 0RF
gabapentin 100 mg Capsule
100 mg PO HS Qty: 0 0RF
rosuvastatin [Crestor] 40 mg Tablet
40 mg PO QPM Qty: 0 0RF
cholecalciferol (vitamin D3) [Vitamin D3] 25 mcg (1,000 unit) Tablet
25 mcg PO DAILY Qty: 0 0RF
Jardiance 10 mg Tablet
10 mg PO DAILY Qty: 0 0RF
metoprolol succinate 25 mg Tablet Extended Release 24 Hr
25 mg PO DAILY Qty: 30 1RF
Januvia 50 mg tablet
50 mg PO NOON
insulin glargine [Lantus Solostar U-100 Insulin] 100 unit/mL (3 mL) insulin pen
25 unit SC QPM
nitroglycerin 0.4 mg tablet, sublingual
0.4 mg sublingual [id number] PRN (Reason: chest pain)
candesartan 8 mg tablet
4 mg PO BID
Referrals:
Charles Key MD [Family Provider] -
Interventions
Interventions:
*Risk Screen - Suicide Last Done: 11/06/23 13:53
*General Assessment Last Done: 11/06/23 13:53
*Neglect/Abuse Screening Last Done: 11/06/23 13:53
*ED COVID-19 Vaccine History Last Done: 11/06/23 13:53
ED- Cardiac Assessment Last Done: 11/06/23 15:27
Discharge Date and Time
Print Language: SERBIAN
--- NOTE | 2023-11-06 16:28 | CON.CAR ---
Consultation
Consultation Request
Date/Time Consultation Requested: 11/06/23 1604
Date/Time Consultation Performed: 11/06/23 1615
Requesting Provider: Dr. Wheeler
Performing Provider: Carrie DIAZ for Dr. Zuniga
Reason for Consultation: NSTEMI
Medical History
-
Chief Complaint: chest discomfort
History of Present Illness:
73 y/o female with CKD3A, HTN, DM2, dyslipidemia, PARKER, and multivessel CAD (roto-stenting of LAD May 2002, brachytherapy and re-stenting 2004, proximal RCA stent 2002, ramus PTCA 2004, and stent in prox and mid LAD May 2012) now s/p CAB x 2
(arambula- lad, [id number]), and LILIANE clip 09/12/23. She recently came to the ER with CP and was seen to have severe HTN. Trop and EKG were unremarkable overall and she was discharged with adjusted BP management. She is back with chest discomfort- she
had some left-sided chest stabbing last night from about 11-12. She went to sleep, but today around 10 noted chest burning across the chest, which went into her shoulders, and which lasted until she got to the ER, which was around 2 PM. She
originally told me she was having no discomfort in her chest at the time of my assessment, but then later said there is a little bit of heaviness. She is in no distress. Her initial trop is 1.2. EKG shows some lateral t wave abnormalities.
Past Medical History
Past Medical History: CAD, HTN, Hypercholesterolemia, NIDDM and Other (CKD)
Social History
Tobacco: Non-Smoker
Alcohol: None
Living: With Family
Family History
Family History: CAD (brother [place] )
Allergies / Home Medications
Allergy/AdvReac Type Severity Reaction Status Date / Time
diphenhydramine HCl Allergy Unknown Verified 11/06/23 13:54
[From Benadryl]
Penicillins Allergy Unknown Verified 11/06/23 13:54
Sulfa (Sulfonamide Allergy Unknown Verified 11/06/23 13:54
Antibiotics)
�Medication �Instructions �Recorded �Confirmed �Type
ferrous sulfate 325 mg (65 mg 325 mg PO BID Supplement 03/25/21 11/06/23 History
iron) tablet (Iron (ferrous
sulfate))
acetaminophen 325 mg tablet 650 mg (2 x 325 mg) PO Q4HPRN PRN 09/20/23 11/06/23 Rx
mild pain,headache,temp >101F #0
tabs
aspirin 81 mg tablet,delayed 81 mg PO DAILY Heart 09/20/23 11/06/23 Rx
release disease/condition #0 tabs
cholecalciferol (vitamin D3) 25 25 mcg PO DAILY Supplement #0 tabs 09/20/23 11/06/23 Rx
mcg (1,000 unit) tablet (Vitamin
D3)
clopidogrel 75 mg tablet 75 mg PO DAILY Heart 09/20/23 11/06/23 Rx
disease/condition #30 tabs
empagliflozin 10 mg tablet 10 mg PO DAILY diabetes #0 tabs 09/20/23 11/06/23 Rx
(Jardiance)
furosemide 40 mg tablet (Lasix) 40 mg PO Q48H Blood pressure #0 09/20/23 11/06/23 Rx
tabs
gabapentin 100 mg capsule 100 mg PO HS Pain #0 caps 09/20/23 11/06/23 Rx
metoprolol succinate 25 mg 25 mg PO DAILY Heart 09/20/23 11/06/23 Rx
tablet,extended release 24 hr disease/condition #30 tabs
pantoprazole 40 mg tablet,delayed 40 mg PO DAILY GI prophylaxis #30 09/20/23 11/06/23 Rx
release tabs
rosuvastatin 40 mg tablet (Crestor) 40 mg PO QPM High cholesterol #0 09/20/23 11/06/23 Rx
tabs
therapeutic multivitamin 1 tab PO DAILY Supplement #0 tabs 09/20/23 11/06/23 Rx
insulin glargine 100 unit/mL (3 25 unit SC QPM 11/03/23 11/06/23 History
mL) subcutaneous pen (Lantus
Solostar U-100 Insulin)
sitagliptin phosphate 50 mg tablet 50 mg PO NOON Diabetes 11/03/23 11/06/23 History
(Januvia)
candesartan 8 mg tablet 4 mg PO BID 11/06/23 11/06/23 History
nitroglycerin 0.4 mg sublingual 0.4 mg sublingual [id number] PRN 11/06/23 11/06/23 History
tablet chest pain
Review of Systems
-
History Source: Patient
All other systems: Negative unless noted
Cardiac: Chest Pain
Physical Exam
Vital Signs
Temp Pulse Resp BP Pulse Ox
97.5 F 67 18 166/73 98
11/06/23 13:53 11/06/23 13:53 11/06/23 13:53 11/06/23 13:53 11/06/23 13:53
Lab Results
11/06/23 15:13
11/06/23 15:13
Troponin I 1.220 ng/ml H* 11/06/23 15:13
Physical Exam
General: Well Developed, Well Nourished and No Apparent Distress
HEENT: Normocephalic and Anicteric
Respiratory: Clear and Non Labored Respirations
Cardiac: Regular Rhythm
Musculoskeletal: No Edema
Skin: Warm and Dry
Neuro: AO x 3
Psych: Calm
Impression / Plan
-
NSTEMI:
-trend trops and EKG's
-start nitro drip, heparin drip- require intensive monitoring for toxicity
-full dose aspirin administered in ER, on ASA/Plavix as OP
-echo now
-will likely need cath this admit- timing to be determined
HTN:
-elevated in ER
-continue meds and monitor with addition of nitro drip
DM2:
-on medical therapy
-monitor glucose
CKD3A:
-stable
Data Reviewed
-
EKG: Tracing Personally Visualized and interpreted (SR with T wave abnormalities laterally)
Radiology: Report Reviewed by me (CXR: No active cardiopulmonary disease. Stable postoperative changes)
Medical Tests (Nuc Med, Echo etc): Report Reviewed by me (echo 09/15/23: Normal biventricular size and systolic function without regional wall motion abnormality. Estimated LVEF 60-65%. No significant valve disease.)
Labs: Labs Reviewed by me
[2023-11-06 16:39] LABS: APTT 32.3 Sec (23.4-35.0)
[2023-11-06] MEDS: NITROSTAT (SUBLINGUAL) 0.400000000000000022 MG SL (16:58)
--- NOTE | 2023-11-06 16:59 | HPS.HSE ---
Family Physician
<JOE Carson - Last Filed: 11/06/23 17:43>
-
Family Physician: Charles Key
Chief Complaint
<JOE Carson - Last Filed: 11/06/23 17:43>
-
chest pain
History of Present Illness
73 y/o female with CKD3A, HTN, DM2, dyslipidemia, PARKER, and multivessel CAD s/p CAB presented to us with chest pain. stated intermittent chest pain since Friday. she was evaluated in ER on Friday. she was feeling better Friday and yesterday but
felt chest burning across the chest, which went into her shoulders last night. she was able to sleep through it but noted pain again today morning which prompted her to come to the ER. Denies any cough. Patient denies any short of breath.
Patient denies any fever, chills. Patient denies any headache, dizziness, syncopal episode. patient denied any abdominal pain, nausea, vomiting, diarrhea. Patient denies dysuria hematuria.
Noted elevated troponin ER. Chest x-ray with no acute disease. Patient started on heparin and nitro drip. Admitting for further management
Medical History
<JOE Carson - Last Filed: 11/06/23 17:43>
Past Medical History
Past Medical History: Reports Other
Additional Past Medical History:
Hypertension
Type 2 diabetes
Hyperlipidemia
stage III chronic kidney disease
Iron deficiency anemia
Coronary artery disease with stent placement
Past Surgical History: Reports Other
Additional Past Surgical History:
Coronary artery bypass graft
Cardiac stent
Spine surgery
Cholecystectomy
Cataract surgery
Social History
Tobacco: Non-smoker
Alcohol: None
Drug: None
Family History
Family History: Not pertinent
Allergies / Home Medications
Allergies reflects when Allergies were last updated in [employer].
Home Medications with original date entered in [employer]
Allergy/Medication List:
Allergies
Allergy/AdvReac Type Severity Reaction Status Date / Time
diphenhydramine HCl Allergy Unknown Verified 11/06/23 13:54
[From Benadryl]
Penicillins Allergy Unknown Verified 11/06/23 13:54
Sulfa (Sulfonamide Allergy Unknown Verified 11/06/23 13:54
Antibiotics)
Home Medications
ferrous sulfate 325 mg (65 mg iron) tablet (Iron (ferrous sulfate)) 325 mg PO BID Supplement 03/25/21
acetaminophen 325 mg tablet 650 mg (2 x 325 mg) PO Q4HPRN PRN mild pain,headache,temp >101F #0 tabs 09/20/23
aspirin 81 mg tablet,delayed release 81 mg PO DAILY Heart disease/condition #0 tabs 09/20/23
cholecalciferol (vitamin D3) 25 mcg (1,000 unit) tablet (Vitamin D3) 25 mcg PO DAILY Supplement #0 tabs 09/20/23
clopidogrel 75 mg tablet 75 mg PO DAILY Heart disease/condition #30 tabs 09/20/23
empagliflozin 10 mg tablet (Jardiance) 10 mg PO DAILY diabetes #0 tabs 09/20/23
furosemide 40 mg tablet (Lasix) 40 mg PO Q48H Blood pressure #0 tabs 09/20/23
gabapentin 100 mg capsule 100 mg PO HS Pain #0 caps 09/20/23
metoprolol succinate 25 mg tablet,extended release 24 hr 25 mg PO DAILY Heart disease/condition #30 tabs 09/20/23
pantoprazole 40 mg tablet,delayed release 40 mg PO DAILY GI prophylaxis #30 tabs 09/20/23
rosuvastatin 40 mg tablet (Crestor) 40 mg PO QPM High cholesterol #0 tabs 09/20/23
therapeutic multivitamin 1 tab PO DAILY Supplement #0 tabs 09/20/23
insulin glargine 100 unit/mL (3 mL) subcutaneous pen (Lantus Solostar U-100 Insulin) 25 unit SC QPM 11/03/23
sitagliptin phosphate 50 mg tablet (Januvia) 50 mg PO NOON Diabetes 11/03/23
candesartan 8 mg tablet 4 mg PO BID 11/06/23
nitroglycerin 0.4 mg sublingual tablet 0.4 mg sublingual [id number] PRN chest pain 11/06/23
Review of Systems
<JOE Carson - Last Filed: 11/06/23 17:43>
-
Constitutional: Reports No Symptoms
EENT: Reports No Symptoms
Respiratory: Reports No Symptoms
Cardiac: Reports Chest Pain
Abdomen/GI: Reports No Symptoms
: Reports No Symptoms
Musculoskeletal: Reports No Symptoms
Skin: Reports No Symptoms
Neurological: Reports No Symptoms
Endocrine: Reports No Symptoms
Hematologic/Lymphatic: Reports No Symptoms
Psych: Reports No Symptoms
Physical Exam
<JOE Carson - Last Filed: 11/06/23 17:43>
Vital Signs
Vital Signs
Temp Pulse Resp BP Pulse Ox
97.5 F 67 18 166/73 98
11/06/23 13:53 11/06/23 13:53 11/06/23 13:53 11/06/23 13:53 11/06/23 13:53
Physical Exam
General: Well Developed, Well Nourished and No Apparent Distress
HEENT: NormoCephalic, Moist mucous membranes and Atraumatic
Respiratory: Clear
Cardiac: S1/S2 and Regular Rhythm; No Murmur or Rub
GI: Soft, Non Tender, Non Distended and Normal Bowel Sounds; No Organomegaly
Rectal: Deferred by Provider
Musculoskeletal: No Clubbing, No Cyanosis and No Edema
Skin: No Rash
Neuro: AO x 3 and Nonfocal/grossly intact
Psych: Calm
Laboratory Results
<JOE Carson - Last Filed: 11/06/23 17:43>
-
11/06/23 15:13
11/06/23 15:13
Laboratory Results
APTT Cancelled 11/06/23 16:10
Total Bilirubin 0.3 mg/dl (0.2-1.3) 11/06/23 15:13
AST 35 U/L (14-36) 11/06/23 15:13
ALT 19 U/L (0-35) 11/06/23 15:13
Alkaline Phosphatase 105 U/L (38-126) 11/06/23 15:13
Troponin I 1.220 ng/ml H* 11/06/23 15:13
Data Reviewed
<JOE Carson - Last Filed: 11/06/23 17:43>
-
Diagnostic Radiology: Report Reviewed by me
Lab Data: Labs Reviewed by me
Impression/Plan
<JOE Carson - Last Filed: 11/06/23 17:43>
-
#chest pain likely NSTEMI
-Troponin 1.22
-Chest x-ray with impression of No active cardiopulmonary disease.Stable postoperative changes
-EKG with NORMAL SINUS RHYTHM ST and T WAVE ABNORMALITY, CONSIDER LATERAL ISCHEMIA
-Heparin drip
-Nitro drip
-Aspirin and Plavix continued
-Echo
-Trend troponin
-Maintain n.p.o. after midnight for possible cath in the morning
-Cardiology consult
#Elevated D dimer
-will obtain CTPE
-ctm
# Anemia of chronic disease
-Hemoglobin 10.7
-No active bleeding
-Continue to monitor
-Ferrous sulfate continued
#HTN
-Candesartan continued
-Metoprolol continued
-Hold Lasix
#DM 2 /diabetic neuropathy
-Accu-Cheks with SSI,
-Hold Jardiance, Januvia
-Lantus 10 units at bedtime
-Add SSI with meals low
-Continue gabapentin 100 mg at bedtime
#HLD
-Continue Crestor 40 mg every afternoon
CKD stage IIIb
DVT prophylaxis
Patient on IV heparin drip
full code
<Dedra Velez MD - Last Filed: 11/06/23 17:50>
-
I saw and examined the patient.
The UTILITY SYSTEMS REPAIRER OPERATOR or PA's note was reviewed and I agree with the note.
Comment:
CVS: S1-S2 normal
Chest: Midline CABG scar-stable
Mild tenderness in the left chest wall
Abdomen: Soft, NT / Bowel sounds present
Extremities: Mild edema, normal pulses
SODA DRIER FEEDER: Non focal exam
#Chest pain
-Differential include NSTEMI, PE
-Troponin 1.22
-Chest x-ray with impression of No active cardiopulmonary disease.Stable postoperative changes
-EKG with NORMAL SINUS RHYTHM ST and T WAVE ABNORMALITY, CONSIDER LATERAL ISCHEMIA
-Heparin drip
-Nitro drip
-Aspirin and Plavix to be continued
-Echo-normal biventricular size and systolic function. Ejection fraction 55 to 60%. Mild concentric LVH. Aortic sclerosis without stenosis.
-Trend troponin
-Maintain n.p.o. after midnight for possible cath in the morning
-Cardiology consulted
#Elevated D dimer and chest pain
-will obtain VQ SCan as the patient is going for cardiac catheter with more dye exposure tomorrow.
-Already on heparin drip
# Anemia of chronic disease
-Hemoglobin 10.7
-No active bleeding
-Check iron studies
#HTN
-Candesartan to be continued
-Metoprolol to be continued
-Hold Lasix
#DM 2 /diabetic neuropathy
-Accu-Cheks with SSI,
-Hold Jardiance, Januvia
-Lantus 10 units at bedtime as NPO in am
-Add SSI with meals low
-Continue gabapentin 100 mg at bedtime
#HLD
-Continue Crestor 40 mg every afternoon
#CKD stage IIIb
But creat stab
# Sleep apnea-continue CPAP
#GERD-add Pepcid
#DVT prophylaxis
Patient on IV heparin drip
#full code
Discussed with family at bedside
[2023-11-06] MEDS: NITROGLYCERIN PREMIX 250 IV (17:03)
[2023-11-06] MEDS: HEPARIN 4000 UNITS IV (17:08)
[2023-11-06] MEDS: HEPARIN 25000 UNITS/250 ML IV (17:11)
[2023-11-06 17:58] LABS: Iron 77 ug/dl (37-170)
[2023-11-06 18:07] LABS: Percent Saturation 27 % (20-50); Total Iron Binding Capacity 284 ug/dl (265-497)
[2023-11-06 18:56] LABS: Glucose - Point of Care 98 mg/dl (70-99)
[2023-11-06 19:02] LABS: Vitamin B12 > 1000 pg/ml (239-931)
--- NOTE | 2023-11-06 19:20 | PTCARENOTE ---
Pt received from ED, heparin and nitroglycerin infusions in progress. Pt c/o very mild chest burning. Telemetry shows sinus rhythm.
[2023-11-06] MEDS: FEOSOL 325 MG PO (19:29)
[2023-11-06] MEDS: CRESTOR 40 MG PO (19:29)
[2023-11-06] MEDS: ATACAND 4 MG PO (19:30)
--- NOTE | 2023-11-06 20:40 | PTCARENOTE ---
Pt c/o chest burning rating 3-4/10. Nitroglycerin gtt titrated per protocol and infusing at 10mcg/min. BP 146/60. Heparin gtt infusing at 850units/hr. Surgical sites s/p prior CABG are scabbed and approx. See worklist. Pt aware of NPO status at
midnight. Currently resting in bed; call alexander w/in reach.
[2023-11-06 21:24] LABS: Glucose - Point of Care 169 mg/dl (70-99)
[2023-11-06] MEDS: NEURONTIN 100 MG PO (21:24)
[2023-11-06] MEDS: PEPCID 20 MG PO (21:24)
[2023-11-06] MEDS: LANTUS 0.100000000000000006 UNITS SC (21:24)
[2023-11-07] VITALS (20 sets, daily range): BP systolic 94–181; BP diastolic 46–80; PULSE 85; BMI 31.3
[2023-11-07 00:51] LABS: APTT > 200 Sec (23.4-35.0)
[2023-11-07 06:14] LABS: % Basophils 0.5 % (0-2); % Eosinophils 3.2 % (0-6); % Immature Granulocytes 0.2 % (0-0.5); % Lymphocytes 24.1 % (20.5-51.1); % Monocytes 5.6 % (1.7-9.3); % Neutrophils 66.4 % (42.2-75.2); Absolute Eosinophils 0.3 10^3/uL (0-0.7); Absolute Lymphocytes 2.1 10^3/uL (1.2-3.4); Absolute Monocytes 0.5 10^3/uL (0.1-0.6); Absolute Neutrophils 5.7 10^3/uL (1.4-6.5); Hematocrit 29.6 % (37.0-47.0); Hemoglobin 9.6 g/dL (12.0-16.0); Mean Corp Hgb Conc. 32.4 g/dL (33.0-37.0); Mean Corpuscular Hgb 27.1 pg (27.0-31.0); Mean Corpuscular Volume 83.6 fL (81.0-99.0); Mean Platelet Volume 10.5 fL (7.4-10.4); Nucleated Red Blood Cells % 0 %; Platelet Count 216 10^3/uL (130-400); Red Blood Cell Count 3.54 10^6/uL (4.20-5.40); Red Cell Dist. Width 14.6 % (11.5-14.5); White Blood Cell Count 8.5 10^3/uL (4.8-10.8)
[2023-11-07 06:56] LABS: Blood Urea Nitrogen 20 mg/dl (7-17); Calcium 9.8 mg/dl (8.4-10.2); Carbon Dioxide 25 mmol/L (22-30); Chloride 104 mmol/L (98-107); Estimated Creatinine Clearance 40 ml/min; Glucose 81 mg/dl (70-99); HDL Cholesterol 38 mg/dl; LDL Cholesterol, Calculated 31 mg/dl; Potassium 3.7 mmol/L (3.5-5.1); Sodium 139 mmol/L (135-145); Total Cholesterol 87 mg/dl (50-199); Triglyceride 94 mg/dl (10-149); Very Low Density Lipoprotein 18 mg/dl (0-30); eGFR 58.75
[2023-11-07 07:29] LABS: Glucose - Point of Care 87 mg/dl (70-99)
[2023-11-07 08:19] LABS: Glycohemoglobin (HgbA1c) 6.6 % (4.0-5.6)
[2023-11-07] MEDS: PLAVIX 75 MG PO (08:30)
[2023-11-07] MEDS: PROTONIX 40 MG PO (08:30)
[2023-11-07] MEDS: NOVOLOG FLEXPEN-LOW RESISTANCE SC ×3 (08:30→18:16)
[2023-11-07] MEDS: TOPROL XL 25 MG PO (08:31)
[2023-11-07] MEDS: ASPIR LOW (ENTERIC COATED) 81 MG PO (08:31)
[2023-11-07] MEDS: FEOSOL 325 MG PO ×2 (08:37→19:33)
--- NOTE | 2023-11-07 09:19 | W.PN.HOSP.TC ---
Today's Communication/Plan
-
Cath
VQ
Assessment / Plan
Assessment / Plan
CVS: S1-S2 normal
Chest: Midline CABG scar-stable
Mild tenderness in the left chest wall
Abdomen: Soft, NT / Bowel sounds present
Extremities: Mild edema, normal pulses
POLICE OFFICER CRIME PREVENTION: Non focal exam
#Chest pain
-Differential include NSTEMI, PE
-Troponin 1.57-peak
-Chest x-ray with impression of No active cardiopulmonary disease.Stable postoperative changes
-EKG with NORMAL SINUS RHYTHM ST and T WAVE ABNORMALITY, CONSIDER LATERAL ISCHEMIA
-Heparin drip
-Nitro drip
-Aspirin and Plavix to be continued
-Echo-normal biventricular size and systolic function. Ejection fraction 55 to 60%. Mild concentric LVH. Aortic sclerosis without stenosis.
-Maintain n.p.o. for cath
-Cardiology consulted
#Elevated D dimer and chest pain
-Will obtain VQ SCan as the patient is going for cardiac catheter with more dye exposure .
-Already on heparin drip
# Anemia of chronic disease
-Hemoglobin 9.6.
-Possible from recent losses from surgery and also
-No active bleeding
-Check iron studies
#HTN
-Candesartan to be continued
-Metoprolol to be continued
-Hold Lasix
#DM 2 /diabetic neuropathy
-HbA1C 6.6
-Accu-Cheks with SSI,
-Hold Jardiance, Januvia
-Lantus 10 units at bedtime as NPO in am
-Add SSI with meals low
-Continue gabapentin 100 mg at bedtime
#HLD
-Continue Crestor 40 mg every afternoon
#CKD stage IIIb
But creat stab
# Sleep apnea-continue CPAP
#GERD-add Pepcid
#DVT prophylaxis
Patient on IV heparin drip
#Full code
D/W RN
D/W Neuc med- They have to know by noon to get the study done today
Anticipated Discharge: Within 24 hours
Subjective/Interval History
-
Date of Service: November 07, 2023
Objective Data
-
Labs:
Laboratory Results
11/07/23 11/07/23 11/07/23
00:14 05:52 05:53
WBC 8.5
Hgb 9.6 L
Hct 29.6 L
Plt Count 216
APTT > 200 H*
Sodium 139
Potassium 3.7
Chloride 104
Carbon Dioxide 25
BUN 20 H
Creatinine 1.0
Glucose 81
Calcium 9.8
11/07/23
09:00
WBC
Hgb
Hct
Plt Count
APTT Pending
Sodium
Potassium
Chloride
Carbon Dioxide
BUN
Creatinine
Glucose
Calcium
Vital Signs:
Vital Signs
Temp Pulse Resp BP Pulse Ox
98.3 F 65 18 108/56 100
11/07/23 07:00 11/07/23 08:31 11/07/23 07:00 11/07/23 08:31 11/07/23 08:41
I&O
11/06/23 11/07/23 11/08/23
06:59 06:59 06:59
Intake Total 240 / 240 120 / 120
Balance 240 / 240 120 / 120
[2023-11-07 10:57] LABS: ACT-LR - POC 319 Seconds (116-155)
[2023-11-07] MEDS: NSS 1000 IV (11:30)
[2023-11-07 11:40] LABS: Glucose - Point of Care 94 mg/dl (70-99)
[2023-11-07] MEDS: ATACAND 4 MG PO ×2 (11:40→19:33)
--- NOTE | 2023-11-07 11:50 | ITS.CL.CATH ---
[employer] - Catheterization
Cardiac Catheterization
Procedure Report:
CARDIAC CATHETERIZATION REPORT
Date of Procedure: 11/07/2023
Referring: Alan Zuniga MD PhD
Indication: ACS/non-STEMI (troponin 1.2) following CABG x 2 09/16/2023
HEMODYNAMIC DATA
AO: 143/56
LV: 143/8
LEFT VENTRICULOGRAPHY: Hyperdynamic left-ventricular wall motion with EF 68%
CORONARY ANGIOGRAPHY
Dominance: Right
Left Main: Normal
LAD: 60-70% stenosis proximally in the long segment of stent extending from the proximal LAD through the mid LAD. The length of this lesion is about 10-15 mm. The remainder of the stented segment is widely patent. The distal LAD fills antegrade
and via a patent JEEVAN graft. There is a 60% LAD stenosis immediately proximal to the JEEVAN graft touchdown site. There is no significant disease distal to the THURMAN graft touchdown site. There is 60% ostial stenosis in the medium sized second
diagonal branch.
Circumflex: The large bifurcating ramus intermedius has 60% ostial stenosis and the larger more inferior daughter branch is occluded in the midportion and fills distally via a patent vein graft. There is 95% stenosis in the ramus at the touchdown
site of this vein graft. The circumflex proper is occluded just distal to its origin within an old stent-this was noted on the preop study from September 2023.
RCA: Dominant vessel with significant tortuosity with 30% distal stenosis proximal to the takeoff of the small PDA and large first right posterolateral branch. There appears to be occlusion of the AV groove branch just distal to the takeoff of the
large first right posterolateral branch with faint wispy filling of what appears to be a very small distal RPL. The appearance of the RCA is unchanged compared with the preop angio from 09/15/2023
Bypass grafts:
1. The left internal mammary graft to the LAD is widely patent with excellent runoff
2. The saphenous vein graft to the ramus intermedius has 95% stenosis at the touchdown site-the lesion only involves the target coronary artery
Angioplasty: At the conclusion of the diagnostic study we proceeded with intervention to treat the 95% touchdown site lesion in the ramus intermedius branch. Heparin is used for anticoagulation. A 6 Bulgarian AR-1 guide catheter was used. BMW wire
was successfully passed through the severe stenosis at the touchdown site and positioned distally in the target ramus intermedius. Angioplasty with a 2.0 x 12 trek to 10 pritesh was followed by placement of a 2.5 x 15 Xience [place] point ROHIT deployed at
14 pritesh and then postdilated with a 2.75 NC trek to 16 pritesh. The final angiographic result was outstanding. There were no procedural complications.
Closure Device: 6 Bulgarian Angio-Seal RFA
Radiation (mGy): 320
DAP (cm2.Gy): 25.4
Fluoroscopy time: 10.0 minutes
CONCLUSIONS
1: Hyperdynamic left ventricular wall motion with EF 68%
2: Double-vessel CAD with patent THURMAN-LAD and patent SVG-ramus. There is a 95% stenosis in the ramus at the touchdown site of the SVG
3. Successful stenting of 95% ramus intermedius lesion via SVG approach with placement of 2.5 x 15 Xience [place] point ROHIT with outstanding angiographic result
4. Continue dual antiplatelet therapy for 12 months
Copy to: Markus Amin MD, Charles Key MD
Cliff Pires MD, [facility], [facility]
--- NOTE | 2023-11-07 14:20 | CM ---
spoke to pt in room, she is prev indep, lives with her son in a 2 story home with 2 steps to enter. she has a cane and a walker at home to use if needed. she denies any dc planning needs. plan is for dc to home when medically stable.
--- NOTE | 2023-11-07 17:33 | PTCARENOTE ---
Pt had cardiac cath with stent placement done via left femoral artery closed with angioseal. Left femoral site with dry and intact dressing, no sign of bleeding or hematoma. Pt OOB after bedrest without problem. Pt reported very mild 'chest burning'
after procedure. Heparin and nitroglycerin discontinued. Telemetry shows sinus rhythm with one run of 9 beats of NSVT. Plan for nuclear med lung scan at 08:30 on 11/07.
[2023-11-07 18:14] LABS: Glucose - Point of Care 142 mg/dl (70-99)
[2023-11-07] MEDS: LANTUS 0.100000000000000006 UNITS SC (18:17)
[2023-11-07] MEDS: CRESTOR 40 MG PO (18:17)
--- NOTE | 2023-11-07 20:00 | PTCARENOTE ---
Patient comfortable in bed. SR in telemetry, BP 176/83. Oral BP medications given. Right femoral site dry and intact, call alexander in reach
[2023-11-07 21:43] LABS: Glucose - Point of Care 138 mg/dl (70-99)
[2023-11-07] MEDS: PEPCID 20 MG PO (22:56)
[2023-11-07] MEDS: NEURONTIN 100 MG PO (22:56)
[2023-11-08] VITALS (25 sets, daily range): BP systolic 135–192; BP diastolic 48–104; PULSE 74; BMI 31.3
[2023-11-08 06:12] LABS: % Basophils 0.6 % (0-2); % Eosinophils 3.5 % (0-6); % Immature Granulocytes 0.3 % (0-0.5); % Lymphocytes 31.4 % (20.5-51.1); % Monocytes 6.5 % (1.7-9.3); % Neutrophils 57.7 % (42.2-75.2); Absolute Eosinophils 0.2 10^3/uL (0-0.7); Absolute Lymphocytes 2.2 10^3/uL (1.2-3.4); Absolute Monocytes 0.5 10^3/uL (0.1-0.6); Hematocrit 29.3 % (37.0-47.0); Hemoglobin 9.2 g/dL (12.0-16.0); Mean Corp Hgb Conc. 31.4 g/dL (33.0-37.0); Mean Corpuscular Hgb 26.9 pg (27.0-31.0); Mean Corpuscular Volume 85.7 fL (81.0-99.0); Mean Platelet Volume 10.9 fL (7.4-10.4); Nucleated Red Blood Cells % 0 %; Platelet Count 188 10^3/uL (130-400); Red Blood Cell Count 3.42 10^6/uL (4.20-5.40); Red Cell Dist. Width 14.7 % (11.5-14.5); White Blood Cell Count 6.9 10^3/uL (4.8-10.8)
--- NOTE | 2023-11-08 06:20 | PTCARENOTE ---
Patient rested well overnight. NSR, labs collected, weight obtained, voiding in the bathroom, call alexander in reach
[2023-11-08 06:26] LABS: Blood Urea Nitrogen 18 mg/dl (7-17); Calcium 9.6 mg/dl (8.4-10.2); Carbon Dioxide 28 mmol/L (22-30); Chloride 103 mmol/L (98-107); Estimated Creatinine Clearance 40 ml/min; Glucose 120 mg/dl (70-99); Potassium 3.9 mmol/L (3.5-5.1); Sodium 138 mmol/L (135-145); eGFR 58.75
[2023-11-08] MEDS: ATACAND 4 MG PO ×2 (07:32→11:50)
[2023-11-08] MEDS: ASPIR LOW (ENTERIC COATED) 81 MG PO (07:32)
[2023-11-08] MEDS: TOPROL XL 25 MG PO (07:32)
[2023-11-08 07:33] LABS: Glucose - Point of Care 134 mg/dl (70-99)
[2023-11-08] MEDS: FEOSOL 325 MG PO ×2 (07:33→20:21)
[2023-11-08] MEDS: PLAVIX 75 MG PO (07:33)
[2023-11-08] MEDS: PROTONIX 40 MG PO (07:33)
[2023-11-08] MEDS: NOVOLOG FLEXPEN-LOW RESISTANCE SC (07:34)
--- NOTE | 2023-11-08 08:45 | PTCARENOTE ---
Pt taken for VQ scan as ordered for 829 this morning
--- NOTE | 2023-11-08 10:48 | PTCARENOTE ---
Addendum entered by Melissa Manzanares RN 11/08/23 10:51:
188/104, 171/52 additionally
Original Note:
Pt's BP elevated when PT checked it and again shortly 182/62, 154/56. Dr Velez and Dr Disla aware. Med adjustments made.
--- NOTE | 2023-11-08 10:49 | W.PN.CD ---
Today's Communication / Plan
-
Ok for home on new meds
F/u arranged
See comments on HTN meds
Impression / Plan
-
CAD/Small NSTEMI:
- Cath/PCI yesterday to treat the 95% touchdown site lesion in the ramus intermedius branch. THURMAN patent. Other anatomy stable
- Normal LVEF at cath and echo this admit
- Very recent CABGx2 here last month]
HTN:
- Today I increased her ARB and added amlodipine
- HTN has chronically been above goal from what the patient tells me
- In the office further uptitration of these three meds may be needed
- If a 4th med is needed I would consider Aldactone
DM2
CKD3A
Subjective:
Feels well this morning
Physical Exam
Vital Signs/Labs
Vital Signs
Temp Pulse Resp BP Pulse Ox
97.6 F 60 18 154/56 96
11/08/23 10:46 11/08/23 10:46 11/08/23 10:46 11/08/23 10:46 11/08/23 10:46
11/07/23 11/08/23 11/09/23
06:59 06:59 06:59
Actual Weight 67.9 kg 68 kg
11/08/23 05:18
11/08/23 05:18
APTT Cancelled 11/07/23 09:00
Triglycerides 94 mg/dl (10-149) 11/07/23 05:52
LDL Cholesterol, Calc 31 mg/dl 11/07/23 05:52
VLDL Cholesterol, Calc 18 mg/dl (0-30) 11/07/23 05:52
HDL Cholesterol 38 mg/dl 11/07/23 05:52
LAB Results
11/06/23 11/06/23 11/07/23
15:13 18:13 00:14
Troponin I 1.220 H* Cancelled 1.570 H*
11/07/23 11/07/23 11/07/23
00:15 05:53 06:15
Troponin I Cancelled 1.340 H* Cancelled
Physical Exam
Constitutional: No acute distress
EENT: Anicteric
Cardiovascular: Rhythm & rate is regular and Pedal edema is absent
Respiratory: Respiratory effort normal and Lungs clear to auscul.
GI: Soft and Distention absent
Other: Cath Site (c/d/i no bruit or hematoma)
Data Reviewed
-
Date of Service: November 08, 2023
[2023-11-08] MEDS: NORVASC 2.5 MG PO ×2 (11:07→20:21)
--- NOTE | 2023-11-08 11:10 | W.PN.HOSP.TC ---
Today's Communication/Plan
-
Norvasc
Increased Candesartan
Discharge if BP better
Assessment / Plan
Assessment / Plan
CVS: S1-S2 normal
Chest: Midline CABG scar-stable
Mild tenderness in the left chest wall
Abdomen: Soft, NT / Bowel sounds present
Extremities: Mild edema, normal pulses
REPLANTER: Non focal exam
#NSTEMI
-Troponin 1.57-peak
-Cardiac cath 11/07/2023 with PCI ramus intermedius branch
-EKG with NORMAL SINUS RHYTHM ST and T WAVE ABNORMALITY, CONSIDER LATERAL ISCHEMIA
-Aspirin , Plavix , metoprolol, statin to be continued
-Candesartan increased to 16 mg a day from 8 mg a day.
-Echo-normal biventricular size
#Elevated D dimer and chest pain
-VQ scan low probability
-At this point there is another reason for her chest pain which was non-STEMI therefore we will hold off from getting a CT angiogram.
-Risks of repeated dye exposure outweighs the benefits at this point.
# Anemia of chronic disease
-Hemoglobin 9.6.
-Possible from recent losses from surgery and also
-No active bleeding
-Anemia workup as outpatient
#HTN
-Candesartan increased to 8 mg twice daily
-Metoprolol to be continued
-Restart Lasix
-Norvasc added
#DM 2 /diabetic neuropathy
-HbA1C 6.6
-Accu-Cheks with SSI,
-Restart Jardiance, Januvia
-Lantus to be back to patient's usual dose 25 units
-Add SSI with meals low
-Continue gabapentin 100 mg at bedtime
#HLD
-Continue Crestor 40 mg every afternoon
#CKD stage IIIb
But creat stab
# Sleep apnea-continue CPAP
#GERD-add Pepcid
#DVT prophylaxis
#Full code
D/W RN
Discussed with cardiology at bedside
Watch blood pressure and if stable will discharge this afternoon
Total time for DC coordination today 33 minutes
Anticipated Discharge: Today
Subjective/Interval History
-
Date of Service: November 08, 2023
Objective Data
-
Labs:
Laboratory Results
11/08/23
05:18
WBC 6.9
Hgb 9.2 L
Hct 29.3 L
Plt Count 188
Sodium 138
Potassium 3.9
Chloride 103
Carbon Dioxide 28
BUN 18 H
Creatinine 1.0
Glucose 120 H
Calcium 9.6
Vital Signs:
Vital Signs
Temp Pulse Resp BP Pulse Ox
97.6 F 61 18 154/56 96
11/08/23 10:46 11/08/23 10:47 11/08/23 10:46 11/08/23 10:47 11/08/23 10:46
I&O
11/07/23 11/08/23 11/09/23
06:59 06:59 06:59
Intake Total 240 / 240 860 / 860 240 / 240
Balance 240 / 240 860 / 860 240 / 240
[2023-11-08 11:27] LABS: Glucose - Point of Care 236 mg/dl (70-99)
[2023-11-08] MEDS: NOVOLOG FLEXPEN-LOW RESISTANCE 2 UNITS SC (12:14)
[2023-11-08] MEDS: APRESOLINE 5 MG IV (13:29)
[2023-11-08] MEDS: TYLENOL 650 MG PO (13:32)
--- NOTE | 2023-11-08 13:33 | PTCARENOTE ---
Pt BP 192/65. Dr Velez aware. Hydralazine 5 mg IV ordered and given. Pt also c/o headache, rated 4/10 in back of her head, med with Tylenol 650 mg po as ordered.
[2023-11-08] MEDS: LASIX 40 MG PO (13:55)
--- NOTE | 2023-11-08 15:51 | PTCARENOTE ---
"Assumed care of the patient, monitoring BP after patient received IV hydralazine and PO lasix in addition to amlodipine added earlier and extra dose of PO atacand. BP now 154/72, family at the bedside and anxious to take the patient home. "Jaspreet notified of latest BP."
--- NOTE | 2023-11-08 16:43 | PTCARENOTE ---
Patient's SBP still fluctuating 150-170, Dr. Velez aware and will hold off discharge and observe overnight. Medications adjusted, patient and family aware.
[2023-11-08 16:52] LABS: Glucose - Point of Care 153 mg/dl (70-99)
[2023-11-08] MEDS: NOVOLOG FLEXPEN-LOW RESISTANCE 1 UNITS SC (16:52)
[2023-11-08] MEDS: LANTUS 0.100000000000000006 UNITS SC (18:29)
[2023-11-08] MEDS: CRESTOR 40 MG PO (18:29)
[2023-11-08] MEDS: LOVENOX 40 MG SC (18:30)
[2023-11-08] MEDS: NEURONTIN 100 MG PO (20:21)
[2023-11-08] MEDS: ATACAND 8 MG PO (20:21)
[2023-11-08] MEDS: PEPCID 20 MG PO (20:21)
--- NOTE | 2023-11-08 21:05 | PTCARENOTE ---
Patient comfortable, VSS, BP 141/62, HR 68. NSR. Family at bedside, call alexander in reach
[2023-11-08 22:12] LABS: Glucose - Point of Care 217 mg/dl (70-99)
[2023-11-09] VITALS (7 sets, daily range): BP systolic 147–172; BP diastolic 58–67; PULSE 73; BMI 30.8
[2023-11-09 04:57] LABS: % Basophils 0.7 % (0-2); % Immature Granulocytes 0.3 % (0-0.5); % Monocytes 6.5 % (1.7-9.3); % Neutrophils 52.5 % (42.2-75.2); Absolute Basophils 0.1 10^3/uL (0-0.2); Absolute Eosinophils 0.3 10^3/uL (0-0.7); Absolute Lymphocytes 2.8 10^3/uL (1.2-3.4); Absolute Monocytes 0.5 10^3/uL (0.1-0.6); Hematocrit 32.9 % (37.0-47.0); Hemoglobin 10.5 g/dL (12.0-16.0); Mean Corp Hgb Conc. 31.9 g/dL (33.0-37.0); Mean Corpuscular Hgb 27.1 pg (27.0-31.0); Mean Platelet Volume 10.7 fL (7.4-10.4); Nucleated Red Blood Cells % 0 %; Platelet Count 197 10^3/uL (130-400); Red Blood Cell Count 3.87 10^6/uL (4.20-5.40); Red Cell Dist. Width 14.6 % (11.5-14.5); White Blood Cell Count 7.7 10^3/uL (4.8-10.8)
[2023-11-09 05:31] LABS: Blood Urea Nitrogen 21 mg/dl (7-17); Calcium 9.8 mg/dl (8.4-10.2); Carbon Dioxide 29 mmol/L (22-30); Chloride 101 mmol/L (98-107); Estimated Creatinine Clearance 36 ml/min; Glucose 135 mg/dl (70-99); Potassium 3.8 mmol/L (3.5-5.1); Sodium 137 mmol/L (135-145)
[2023-11-09 07:35] LABS: Glucose - Point of Care 152 mg/dl (70-99)
[2023-11-09] MEDS: PLAVIX 75 MG PO (07:40)
[2023-11-09] MEDS: ASPIR LOW (ENTERIC COATED) 81 MG PO (07:40)
[2023-11-09] MEDS: FEOSOL 325 MG PO (07:40)
[2023-11-09] MEDS: PROTONIX 40 MG PO (07:40)
[2023-11-09] MEDS: NORVASC 2.5 MG PO (07:41)
[2023-11-09] MEDS: ATACAND 8 MG PO (07:41)
[2023-11-09] MEDS: TOPROL XL 25 MG PO (07:41)
[2023-11-09] MEDS: LASIX 40 MG PO (07:41)
[2023-11-09] MEDS: NOVOLOG FLEXPEN-LOW RESISTANCE 1 UNITS SC (07:42)
--- NOTE | 2023-11-09 09:32 | W.PN.HOSP.TC ---
Today's Communication/Plan
-
Discharge
Assessment / Plan
Assessment / Plan
CVS: S1-S2 normal
Chest: Midline CABG scar-stable
Mild tenderness in the left chest wall
Abdomen: Soft, NT / Bowel sounds present
Extremities: Mild edema, normal pulses
TYRE BUILDER: Non focal exam
#NSTEMI
-Troponin 1.57-peak
-Cardiac cath 11/07/2023 with PCI ramus intermedius branch
-EKG with NORMAL SINUS RHYTHM ST and T WAVE ABNORMALITY, CONSIDER LATERAL ISCHEMIA
-Aspirin , Plavix , metoprolol, statin to be continued
-Candesartan increased to 16 mg a day from 8 mg a day.
-Echo-normal biventricular size
#Elevated D dimer and chest pain
-VQ scan low probability
-At this point there is another reason for her chest pain which was non-STEMI therefore we will hold off from getting a CT angiogram.
-Risks of repeated dye exposure outweighs the benefits at this point.
# Anemia of chronic disease
-Hemoglobin 9.6.
-Possible from recent losses from surgery and also
-No active bleeding
-Anemia workup as outpatient
#HTN
-Candesartan increased to 8 mg twice daily
-Metoprolol to be continued
-Restart Lasix
-Norvasc 2.5 BID
-BP better
#DM 2 /diabetic neuropathy
-HbA1C 6.6
-Accu-Cheks with SSI,
-Restart Jardiance, Januvia
-Lantus to be back to patient's usual dose 25 units
-Add SSI with meals low
-Continue gabapentin 100 mg at bedtime
#HLD
-Continue Crestor 40 mg every afternoon
#CKD stage IIIb
But creat stab
# Sleep apnea-continue CPAP
#GERD-add Pepcid
#DVT prophylaxis
#Full code
D/W RN
Discussed with cardiology
Discharge timne 33 min
Anticipated Discharge: Today
Subjective/Interval History
-
Date of Service: November 09, 2023
Objective Data
-
Labs:
Laboratory Results
11/09/23
04:33
WBC 7.7
Hgb 10.5 L
Hct 32.9 L
Plt Count 197
Sodium 137
Potassium 3.8
Chloride 101
Carbon Dioxide 29
BUN 21 H
Creatinine 1.1 H
Glucose 135 H
Calcium 9.8
Vital Signs:
Vital Signs
Temp Pulse Resp BP Pulse Ox
98 F 68 16 172/67 99
11/09/23 07:36 11/09/23 08:30 11/09/23 07:36 11/09/23 07:32 11/09/23 07:36
I&O
11/08/23 11/09/23 11/10/23
06:59 06:59 06:59
Intake Total 860 / 860 440 / 440
Balance 860 / 860 440 / 440
--- NOTE | 2023-11-09 09:33 | W.DS.TRANS ---
Addendum entered and electronically signed by Dedra Velez MD 11/09/23 18:59:
Dictation- [id number]
Original Note:
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
-
Discharge Instructions:
Discharge Diagnosis/Procedures NSTEMI, Angioplasty with stent to vein graft to
OM, anemia, hypertension, diabetes,
hyperlipidemia, chronic kidney disease, sleep
apnea, GERD
Diet Low Cholesterol,Diabetic, Carb Controlled
Activity As tolerated
Driving Restrictions No driving for 24 hours
Blood Work BMP 1 week
Other Services Cardiac Rehab
Instructions:
Stand-Alone Forms: DC Instructions- Cath/EP Lab
Changes to Home Medications: Yes
Discharge Medications:
DC Medications w/original date entered in [facility]
ferrous sulfate 325 mg (65 mg iron) tablet (Iron (ferrous sulfate)) 325 mg PO BID Supplement 03/25/21
aspirin 81 mg tablet,delayed release 81 mg PO DAILY Heart disease/condition #0 tabs 09/20/23
cholecalciferol (vitamin D3) 25 mcg (1,000 unit) tablet (Vitamin D3) 25 mcg PO DAILY Supplement #0 tabs 09/20/23
clopidogrel 75 mg tablet 75 mg PO DAILY Heart disease/condition #30 tabs 09/20/23
empagliflozin 10 mg tablet (Jardiance) 10 mg PO DAILY diabetes #0 tabs 09/20/23
gabapentin 100 mg capsule 100 mg PO HS Pain #0 caps 09/20/23
metoprolol succinate 25 mg tablet,extended release 24 hr 25 mg PO DAILY Heart disease/condition #30 tabs 09/20/23
rosuvastatin 40 mg tablet (Crestor) 40 mg PO QPM High cholesterol #0 tabs 09/20/23
therapeutic multivitamin 1 tab PO DAILY Supplement #0 tabs 09/20/23
sitagliptin phosphate 50 mg tablet (Januvia) 50 mg PO NOON Diabetes 11/03/23
nitroglycerin 0.4 mg sublingual tablet 0.4 mg sublingual [id number] PRN chest pain 11/06/23
acetaminophen 325 mg tablet 650 mg (2 x 325 mg) PO Q4HPRN PRN pain #0 tabs 11/08/23
candesartan 8 mg tablet 8 mg PO BID Blood pressure #60 tabs 11/08/23
furosemide 40 mg tablet (Lasix) 40 mg PO Q48H Fluid retention/Swelling #0 tabs 11/08/23
insulin glargine 100 unit/mL (3 mL) subcutaneous pen (Lantus Solostar U-100 Insulin) 25 unit (0.25 mL) SC QPM Diabetes #0 mL 11/08/23
pantoprazole 40 mg tablet,delayed release 40 mg PO DAILY Gastrointestinal issue #30 tabs 11/08/23
amlodipine 2.5 mg tablet (Norvasc) 2.5 mg PO BID Blood pressure #60 tabs 11/09/23
Home Medication Changes
Atacand increased
Norvasc new
Pending Results: No
[2023-11-09] MEDS: APRESOLINE 5 MG IV (10:25)
== END 2023-11-09 11:05 | disposition home or self-care (01) | DRG 322 ==
LOC: IVU 17:50
PROVIDERS: Internal Medicine Cardiovascular Disease; Nurse Practitioner; Registered Nurse; ADMITTING PHYSICIAN Hospitalist; CONSULT PHYSICIAN Internal Medicine; EMERGENCY PHYSICIAN Emergency Medicine; FAMILY PHYSICIAN Internal Medicine
PROC: B2111ZZ Fluoroscopy of Multiple Coronary Arteries using Low Osmolar Contrast (ICD-10-PCS; 2023-11-07)
PROC: B2151ZZ Fluoroscopy of Left Heart using Low Osmolar Contrast (ICD-10-PCS; 2023-11-07)
PROC: 4A023N7 Measurement of Cardiac Sampling and Pressure, Left Heart, Percutaneous Approach (ICD-10-PCS; 2023-11-07)
PROC: 027034Z Dilation of Coronary Artery, One Artery with Drug-eluting Intraluminal Device, Percutaneous Approach (ICD-10-PCS; 2023-11-07)
DX: I21.4 Non-ST elevation (NSTEMI) myocardial infarction (principal); I13.0 Hypertensive heart and chronic kidney disease with heart failure and stage 1 through stage 4 chronic kidney disease, or unspecified chronic kidney disease; I50.9 Heart failure, unspecified; N18.32 Chronic kidney disease, stage 3b; E11.22 Type 2 diabetes mellitus with diabetic chronic kidney disease; G47.30 Sleep apnea, unspecified; K21.9 Gastro-esophageal reflux disease without esophagitis; D63.8 Anemia in other chronic diseases classified elsewhere; I25.10 Atherosclerotic heart disease of native coronary artery without angina pectoris; E11.40 Type 2 diabetes mellitus with diabetic neuropathy, unspecified; E78.00 Pure hypercholesterolemia, unspecified; Z79.82 Long term (current) use of aspirin; Z79.4 Long term (current) use of insulin; Z95.1 Presence of aortocoronary bypass graft
CPT/HCPCS: 71046; 78582; 80048; 80053; 80061; 82607; 82728; 82962; 83036; 83540; 83550; 84484; 85025; 85347; 85379; 85730; 93005; 93306; 93459; 94660; 96374; 96375; 97162; 99285; A9540; A9567; C1725; C1760; C1769; C1874; C1894; C9600; Q9967

== ENCOUNTER 2023-11-11 12:50 | Observation (INO) | payer OTHER, SELFPAY ==
[2023-11-11] VITALS (14 sets, daily range): BP systolic 117–171; BP diastolic 51–69; PULSE 80; BMI 32.6; BMI 31.3
[2023-11-11 08:55] LABS: % Basophils 0.5 % (0-2); % Eosinophils 2.9 % (0-6); % Immature Granulocytes 0.3 % (0-0.5); % Monocytes 5.6 % (1.7-9.3); % Neutrophils 64.7 % (42.2-75.2); Absolute Eosinophils 0.2 10^3/uL (0-0.7); Absolute Monocytes 0.4 10^3/uL (0.1-0.6); Absolute Neutrophils 5.1 10^3/uL (1.4-6.5); Hematocrit 31.4 % (37.0-47.0); Hemoglobin 10.4 g/dL (12.0-16.0); Mean Corp Hgb Conc. 33.1 g/dL (33.0-37.0); Mean Corpuscular Hgb 27.6 pg (27.0-31.0); Mean Corpuscular Volume 83.3 fL (81.0-99.0); Mean Platelet Volume 10.7 fL (7.4-10.4); Nucleated Red Blood Cells % 0 %; Platelet Count 209 10^3/uL (130-400); Red Blood Cell Count 3.77 10^6/uL (4.20-5.40); Red Cell Dist. Width 14.6 % (11.5-14.5); White Blood Cell Count 7.8 10^3/uL (4.8-10.8)
--- NOTE | 2023-11-11 09:11 | ED.GENMED ---
History of Present Illness
General
Chief Complaint: Chest Pain
Source: patient
Exam Limitations: none
Time Seen by Provider: 11/11/23 09:09
Nursing documentation reviewed up to this point in time: agreed with
Travel History
Have you had any contact with someone who has COVID-19?: No
Do you have any symptoms of coronavirus? Fever > 100 degrees, chills, cough, shortness of breath, sore throat, loss of taste or smell, muscle aches, or headache?: No
History of Present Illness
History of Present Illness:
Patient is a 73-year-old female with recent admission for non-ST elevation RI November 05 - November 08 with angioplasty with stent to obtuse marginal/recent CABG in September 2023, prior history of anemia hypertension diabetes hyperlipidemia chronic
kidney disease reflux presents to the ER with chest pain. She reports since 12 AM last night she has had burning pain to her midsternal chest area and bilateral upper shoulders.
Past History
Past History
ED Past Medical History: CAD, CHF, HTN, Hypercholesterolemia, IDDM, Other (CKD) and Other (Anemia)
ED Past Surgical History: Cardiac (CABG x 2 vessels on 09/15/2023, previous cardiac stents) and Other (Lumbar spinal fusion)
Social History
Tobacco: Non-smoker
Alcohol: None
Drug: None
Personal:
Living: with family
Family History
Family History: Hypertension and Other (father with a stroke)
Phy Exam
General Physical Exam
General Presentation: no apparent distress
General age: appears stated age
General Skin: warm and dry
General Habitus: elderly
General Mental: alert
General Hydration: appears well hydrated
Cardiovascular Exam
Cardiovascular Exam: regular rate/rhythm, no murmur and normal peripheral pulses
Pulmonary Exam
Pulmonary Exam: lungs clear and no respiratory distress
Neurological Exam
Neurological Exam: alert and oriented x3
Musculoskeletal Exam
Musculoskeletal Exam: full ROM
Skin Exam
Skin Exam: normal color and warm/dry
Psychiatric Exam
Psychiatric Exam: normal mood/affect
Scores
Heart Score for Chest Pain Patients
STEMI patient?: Not applicable
Course
Orders/Labs/Results
Orders:
Orders
11/11/23 08:31
ECG [Electrocardiogram (*1)] Urgent
Reason for Study: Chest Pain
EKG- Treatment ONCE
11/11/23 08:38
Complete Blood Count/With Diff Urgent
Comprehensive Metabolic Panel Urgent
Troponin I Urgent
11/11/23 09:07
Cardiac Monitoring- Treatment ONCE
11/11/23 09:59
Chest [CR Chest - 2 Views ] Urgent
Comment:
Reason For Exam: cp
11/11/23 10:55
Echo Follow-up Study Routine
Reason for Study: Chest pain
Comment: Assess wall motion
11/11/23 10:56
Mag Hydrox/Al Hydrox/Simeth [Maalox] 30 ml Phenobarb/Hyoscy/Atropine/Scop [] 10 ml PO NOW
11/11/23 10:58
Nitroglycerin Sublingual [Nitrostat (Sublingual)] 0.4 mg SL NOW STA
11/11/23 11:08
0.9% Sodium Chloride 500 ml [Nss] 500 ml IV BOLUS
11/11/23 11:36
Mag Hydrox/Al Hydrox/Simeth [Maalox] 30 ml .ROUTE .STK-MED ONE
Phenobarb/Hyoscy/Atropine/Scop [] 10 ml .ROUTE .STK-MED ONE
11/11/23 12:30
Troponin I Routine
Abnormal Lab Results
11/11/23
08:38
RBC 3.77 L 10^6/uL
(4.20-5.40)
Hgb 10.4 L g/dL
(12.0-16.0)
Hct 31.4 L %
(37.0-47.0)
RDW 14.6 H %
(11.5-14.5)
MPV 10.7 H fL
(7.4-10.4)
Sodium 134 L mmol/L
(135-145)
BUN 37 H mg/dl
(7-17)
Creatinine 1.8 H mg/dL
(0.6-1.0)
Glucose 151 H mg/dl
(70-99)
Troponin I 0.263 H* ng/ml
11/11/23 08:38
11/11/23 08:38
Vital Signs
Initial and Last Documented VS:
Initial Vital Signs
Temp Pulse Resp BP Pulse Ox
97.7 F 68 16 162/69 100
11/11/23 08:29 11/11/23 08:29 11/11/23 08:29 11/11/23 08:29 11/11/23 08:29
Last Documented Vital Signs
Temp Pulse Resp BP Pulse Ox
97.7 F 61 17 143/54 99
11/11/23 08:29 11/11/23 10:15 11/11/23 10:15 11/11/23 10:00 11/11/23 10:15
MDM/Problems Addressed
Differential Diagnosis Includes:
Not limited to musculoskeletal pain ACS reflux less likely PE patient is not short of breath.
MDM/Problems Addressed:
Patient is a 73-year-old female status post recent stent November 06 and CABG in September presents to the ER with complaints of burning to anterior chest mild tightness. Symptoms started last night. She initially reported symptoms were mostly
constant burning mild tightness but no reports they are on and off. She is in no acute distress. Her EKG is unchanged her troponin is elevated but decreasing from last admission when she had her stent. She does however have worsening renal
function with a creatinine of 1.8. Case discussed with ED physician will order GI cocktail. However patient was also seen by cardiology and they will order nitro as well. Will give small bolus of fluid for increased renal function. Hemoglobin at
baseline.
As discussed with cardiology patient will require admission for renal insufficiency echo to be ordered. At this point patient feels better sitting up worse with lying down reflux is a concern. Will admit to hospital service.
*Radiology
Radiology exam reviewed: radiology read reviewed
*Pulse Oximetry
Patient hypoxic: no
*EKG
Interpreted by ED Provider?: Yes
Interpretation: abnormal
Comparison EKG: no changes
Heart Rate: 63
Rate: normal
Rhythm: sinus
Ischemia: non-specific ST changes
*Critical Care Note
Total Time (30-74mins, 75-104mins- exclusive of procedures): Not Applicable
Patient Management
Discussion with other providers: [employer] (cardiology DR Mcnally )
ED Attending Note
-
Portions of this chart may have been created with voice recognition software.� Occasional wrong word or��sound alike� substitutions may have occurred due to the inherent limitations of voice recognition software.
Discharge Plan
Departure
Patient Disposition: Admit
Date of Disposition: 11/11/23
Time of Disposition: 11:34
Admit to: Telemetry
Admit to doctor: hospitalist
Presentation/result/management discussed w/ accepting MD/DO: Hospitalist
Patient with high blood pressure during this ER visit?: Yes
Condition: Fair
Covid-19: Not Applicable
Discharge Problem:
Chest pain, Acute renal insufficiency
Prescriptions:
No Action
ferrous sulfate [Iron (ferrous sulfate)] 325 MG tablet
325 mg PO BID
clopidogrel 75 mg Tablet
75 mg PO DAILY Qty: 30 1RF
therapeutic multivitamin Tablet
1 tab PO DAILY Qty: 0 0RF
gabapentin 100 mg Capsule
100 mg PO HS Qty: 0 0RF
cholecalciferol (vitamin D3) [Vitamin D3] 25 mcg (1,000 unit) Tablet
25 mcg PO DAILY Qty: 0 0RF
Jardiance 10 mg Tablet
10 mg PO DAILY Qty: 0 0RF
metoprolol succinate 25 mg Tablet Extended Release 24 Hr
25 mg PO DAILY Qty: 30 1RF
Januvia 50 mg tablet
50 mg PO NOON
pantoprazole 40 mg Tablet,Delayed Release (Dr/Ec)
40 mg PO DAILY Qty: 30 0RF
insulin glargine [Lantus Solostar U-100 Insulin] 100 unit/mL (3 mL) insulin pen
25 unit SC QPM Qty: 0 0RF
candesartan 8 mg Tablet
8 mg PO BID Qty: 60 0RF
amlodipine [Norvasc] 2.5 mg tablet
2.5 mg PO BID Qty: 60 0RF
promethazine 6.25 mg/5 mL Syrup
6.25 mg PO Q4HPRN PRN (Reason: cough)
cyanocobalamin (vitamin B-12)
1 tab PO DAILY
furosemide [Lasix] 40 mg tablet
40 mg PO Q48H@0800
acetaminophen 325 mg tablet
650 mg PO Q4HPRN PRN (Reason: mild pain)
aspirin 81 mg tablet,delayed release (DR/EC)
81 mg PO HS
rosuvastatin [Crestor] 40 mg tablet
40 mg PO HS
Referrals:
Charles Key MD [Family Provider] -
Interventions
Interventions:
*Risk Screen - Suicide Last Done: 11/11/23 08:29
*General Assessment Last Done: 11/11/23 08:29
*Neglect/Abuse Screening Last Done: 11/11/23 08:29
ED- Fall Risk Assessment Last Done: 11/11/23 09:20
*ED COVID-19 Vaccine History Last Done: 11/11/23 09:20
ED- Cardiac Assessment Last Done: 11/11/23 09:20
Discharge Date and Time
Print Language: MAORI
[2023-11-11 09:12] LABS: ALT (SGPT) 22 U/L (0-35); AST (SGOT) 35 U/L (14-36); Albumin 3.8 g/dl (3.5-5.0); Alkaline Phosphatase 89 U/L (38-126); Blood Urea Nitrogen 37 mg/dl (7-17); Calcium 9.8 mg/dl (8.4-10.2); Carbon Dioxide 26 mmol/L (22-30); Chloride 100 mmol/L (98-107); Glucose 151 mg/dl (70-99); Potassium 4.1 mmol/L (3.5-5.1); Sodium 134 mmol/L (135-145); Total Bilirubin 0.5 mg/dl (0.2-1.3); Total Protein 6.9 g/dl (6.3-8.2); eGFR 29.02
--- NOTE | 2023-11-11 09:15 | EDRN ---
Miladis Cervantes NP in room w/pt.
[2023-11-11 09:27] LABS: Troponin I 0.263 ng/ml
--- NOTE | 2023-11-11 10:25 | CON.CAR ---
Addendum entered and electronically signed by Earle Mcnally MD 11/11/23 11:32:
I saw and examined the patient.
The PLANNING ASSOCIATE's note was reviewed and I agree with the note.
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
and stent in prox and mid LAD May 2012) now s/p CAB x 2 (THURMAN-LAD, [id number]-JUH-Nrehd) with ROHIT to 95% touchdown site lesion in the ramus intermedius branch on 11/07/23 presents with complaints of chest burning. It started last night while lying down
to go to bed and is relieved with sitting up. She reports it is different than her angina. on exam, no jvp, clear to auscultation b/l, rrr no m/r/g. ECG wits NS mild st depressions anterolaterally, stable from prior, but improved from admission
with NSTEMIo n 11/06. I suspect the cp may be a GI etiology. I will check a focused echo to evaluate for new wall montion. Review of cath? senior care of septal branch with old PCI. Her tropoinin is falling and her cr is up with an DEBBIE likely contributed
to by increase ARB. Will hold for now.
will follow
Original Note:
Consultation
Consultation Request
Date/Time Consultation Requested: 11/11/23 10:20
Date/Time Consultation Performed: 11/11/23 10:40
Requesting Provider: JOE Crews
Performing Provider: JOE Whitlock for Dr. Mcnally
Reason for Consultation: Chest burning
Medical History
-
Chief Complaint: Chest burning
History of Present Illness:
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
PTCA 2004, and stent in prox and mid LAD May 2012) now s/p CAB x 2 (THURMAN-LAD, Qm-VPR-Epatw) with ROHIT to 95% touchdown site lesion in the ramus intermedius branch on 11/07/23 presents with complaints of chest burning. This has been constant since
midnight without full relief. It radiates into her shoulders. Sometimes there is a feeling of chest heaviness. She denies associated SOB, dizziness, diaphoresis and nausea. The burning does not get better or worse with changes in position or
exertion.
Past Medical History
Past Medical History: CAD, HTN, Hypercholesterolemia, NIDDM and Renal Failure (CKD)
Past Surgical History: Cardiac
Social History
Tobacco: Non-Smoker
Alcohol: None
Drug: None
Personal:
Living: With Family
Family History
Family History: Reviewed & Not Pertinent
Allergies / Home Medications
Allergy/AdvReac Type Severity Reaction Status Date / Time
diphenhydramine HCl Allergy Unknown Verified 11/11/23 08:29
[From Benadryl]
Penicillins Allergy Unknown Verified 11/11/23 08:29
Sulfa (Sulfonamide Allergy Unknown Verified 11/11/23 08:29
Antibiotics)
�Medication �Instructions �Recorded �Confirmed �Type
ferrous sulfate 325 mg (65 mg 325 mg PO BID Supplement 03/25/21 11/11/23 History
iron) tablet (Iron (ferrous
sulfate))
cholecalciferol (vitamin D3) 25 25 mcg PO DAILY Supplement #0 tabs 09/20/23 11/11/23 Rx
mcg (1,000 unit) tablet (Vitamin
D3)
clopidogrel 75 mg tablet 75 mg PO DAILY Heart 09/20/23 11/11/23 Rx
disease/condition #30 tabs
empagliflozin 10 mg tablet 10 mg PO DAILY diabetes #0 tabs 09/20/23 11/11/23 Rx
(Jardiance)
gabapentin 100 mg capsule 100 mg PO HS Pain #0 caps 09/20/23 11/11/23 Rx
metoprolol succinate 25 mg 25 mg PO DAILY Heart 09/20/23 11/11/23 Rx
tablet,extended release 24 hr disease/condition #30 tabs
therapeutic multivitamin 1 tab PO DAILY Supplement #0 tabs 09/20/23 11/11/23 Rx
sitagliptin phosphate 50 mg tablet 50 mg PO NOON Diabetes 11/03/23 11/11/23 History
(Januvia)
candesartan 8 mg tablet 8 mg PO BID Blood pressure #60 tabs 11/08/23 11/11/23 Rx
insulin glargine 100 unit/mL (3 25 unit (0.25 mL) SC QPM Diabetes 11/08/23 11/11/23 Rx
mL) subcutaneous pen (Lantus #0 mL
Solostar U-100 Insulin)
pantoprazole 40 mg tablet,delayed 40 mg PO DAILY Gastrointestinal 11/08/23 11/11/23 Rx
release issue #30 tabs
amlodipine 2.5 mg tablet (Norvasc) 2.5 mg PO BID Blood pressure #60 11/09/23 11/11/23 Rx
tabs
acetaminophen 325 mg tablet 650 mg PO Q4HPRN PRN mild pain 11/11/23 11/11/23 History
aspirin 81 mg tablet,delayed 81 mg PO HS Heart disease/condition 11/11/23 11/11/23 History
release
cyanocobalamin (vitamin B-12) 1 tab PO DAILY 11/11/23 11/11/23 History
furosemide 40 mg tablet (Lasix) 40 mg PO Q48H@0800 Fluid 11/11/23 11/11/23 History
retention/Swelling
promethazine 6.25 mg/5 mL oral 6.25 mg PO Q4HPRN PRN cough 11/11/23 11/11/23 History
syrup
rosuvastatin 40 mg tablet (Crestor) 40 mg PO HS High cholesterol 11/11/23 11/11/23 History
Review of Systems
-
History Source: Patient
All other systems: Negative unless noted
Respiratory: No Symptoms
Cardiac: Chest Pain (See HPI)
Abdomen/GI: No Symptoms
: No Symptoms
Physical Exam
Vital Signs
Temp Pulse Resp BP Pulse Ox
97.7 F 61 17 143/54 99
11/11/23 08:29 11/11/23 10:15 11/11/23 10:15 11/11/23 10:00 11/11/23 10:15
Lab Results
11/11/23 08:38
11/11/23 08:38
Troponin I 0.263 ng/ml H* 11/11/23 08:38
Physical Exam
General: Well Developed, Well Nourished, No Apparent Distress and Comfortable
HEENT: Normocephalic, Anicteric and Moist Mucous Membranes
Respiratory: Clear and Non Labored Respirations
Cardiac: S1/S2 and Regular Rhythm; Negative Peripheral Edema
Breast: Deferred by me
GI: Soft, Non Tender, Non Distended and Normal Bowel Sounds
Rectal: Deferred by Provider
Genito-urinary: No Costovertebral Tender
Musculoskeletal: No Clubbing, No Cyanosis and No Edema
Skin: Warm and Dry
Neuro: AO x 3
Hematologic/Lymphatic: No Lymphadenopathy
Psych: Calm
Impression / Plan
-
Chest burning
-Constant chest pain since midnight, midsternal anterior burning
-Troponin trending down
-Follow up echo
Abnormal troponin, non-ischemic myocardial injury
-Trending down from prior admission, assure this is peak
-EKG stable
-Recent cardiac catheterization with ROHIT as documented
CAD
-S/P CABG x2 and LAAL (THURMAN to LAD, SVG to RI, #35 AtriClip) on 09/16/2023, Dr. Patel
-S/P ROHIT to 95% touchdown site lesion in the ramus intermedius branch 11/07/[address] Pires
-Continue BB, DAPT, and rosuvastatin
HTN, multidrug
-Hold candesartan given DEBBIE
-Amlodipine added last admission
DEBBIE on CKD3a
-Renal function worsening with resumption of Candesartan, hold
-S/P dyeload ([facility] 11/07/23)
Type II DM, per primary
HLD, continue high intensity statin
Data Reviewed
-
EKG: Report Reviewed by me (Sinus rhythm, lateral ST abnormality, rate 63)
Radiology: Report Reviewed by me (CXR: No acute cardiopulmonary process.)
Medical Tests (Nuc Med, Echo etc): Report Reviewed by me ([facility] as above)
Labs: Labs Reviewed by me
Old Records: Reviewed
--- NOTE | 2023-11-11 11:13 | EDRN ---
Leeann GARCÍA w/cardiology was in to see pt anne marie 11:[address] Mcnally was just in to see the patient. Dr. Mcnally on leaving told Miladis Cervantes NP to hold to [facility] at this time.
--- NOTE | 2023-11-11 11:45 | EDRN ---
Echocardiogram was done at stretcher side and just completed at this time.
[2023-11-11] MEDS: MAALOX 40 PO (11:53)
[2023-11-11] MEDS: NSS 500 IV (11:54)
--- NOTE | 2023-11-11 12:17 | HPS.HSE ---
Addendum entered and electronically signed by Ernesto Gomez MD 11/11/23 13:30:
I saw and examined the patient.
The SERVICE DISMANTLER or PA's note was reviewed and I agree with the note.
Comment: Patient description to me is that she did not have also reports chest pain after lying down which she did relate to ER physician but described as burning on either side of her chest and midline although she has had previous episodes of
reflux in the past seems atypical for that she denies any radiation to the arms or back denies any exertional aggravation. Her troponins are actually trending down since her most recent NSTEMI angioplasty with stent she is however being admitted in
relation to DEBBIE as her creatinine is risen from 1.1-1.8 from last encounter could be multifactorial in relation to contrast induced nephropathy versus the reintroduction of her ARB now at higher dosage of candesartan 8 mg twice a day also relatively
new introduction of Jardiance she also presents atypically for any signs of PE at this time and had a recent ventilation/perfusion scan that was low probability.
Suspect noncardiac chest pain either parasternal and incisional from recent CABG and or in relation to reflux esophagitis
Plan at this time will be admission to telemetry
Agree with holding ARB
Trending BMP and consultation with Nephrology would been managing her antihypertensives with Dr. Luque following.
Unclear whether the addition of Jardiance recently also may be contributing
Although presents with some peripheral edema on exam assures me that his chronic
Continue to trend troponins which apparently are trending down and do not suspect ischemic burden at this time
Cardiology has seen and will follow
Another issue right hand is her continued hypertension which has been refractory of late prompting the increase in her ARB dosing
Will need to treat with as needed hydralazine with parameters continue amlodipine recently started which may also factor in with some of her peripheral edema
She will be continued on aspirin or statin clopidogrel and beta-gigi
Patient already on a PPI to be continued
Rest of comorbidities as outlined by nurse practitioner and agreed and discussed the plan of care
Original Note:
Family Physician
-
Family Physician: Charles Key
Chief Complaint
-
Chest pain
History of Present Illness
73-year-old female complaining of chest pain since 12 AM last night burning pain to midsternal chest area radiating to bilateral upper shoulders.
She had a recent admission 11/05 - 11/09/2023 NSTEMI angioplasty with stent to ramus intermedius region. She was also noted to have elevated blood pressure Atacand was increased from 4 mg twice daily to 8 mg twice daily and Norvasc was added at 2.5
mg twice daily. She did have a VQ scan with low probability for PE at that time. She is Status post CABG x 2 THURMAN to LAD, SVG to RI, atrial clip on 09/16/2023.
Past medical history DM2, CAD/cardiac stents 2005, October 2023, CABG October 2023, HTN, HLD, lumbar spinal fusion, chronic iron deficiency anemia, CKD, sleep apnea
Medical History
Past Medical History
Past Medical History: Reports Other
Additional Past Medical History:
Hypertension
Type 2 diabetes
Hyperlipidemia
stage III chronic kidney disease
Iron deficiency anemia
Coronary artery disease with stent placement multiple/CABG x 2 vessel
Sleep apnea
CKD 3B
Past Surgical History: Reports Other
Additional Past Surgical History:
Ramus intermedius stent October 2023
Status post CABG x 2 THURMAN to LAD, SVG to RI, atrial clip on 09/16/2023
Proximal RCA stent 2002, LAD stent May 2002, ramus PTCA 2004 with stent proximal and mid LAD May 2012
Coronary artery bypass graft
Cardiac stent
Spine surgery
Cholecystectomy
Cataract surgery
Social History
Tobacco: Non-smoker
Alcohol: None
Drug: None
Family History
Family History: Not pertinent
Allergies / Home Medications
Allergies reflects when Allergies were last updated in [facility].
Home Medications with original date entered in [facility]
Allergy/Medication List:
Allergies
Allergy/AdvReac Type Severity Reaction Status Date / Time
diphenhydramine HCl Allergy Unknown Verified 11/11/23 08:29
[From Benadryl]
Penicillins Allergy Unknown Verified 11/11/23 08:29
Sulfa (Sulfonamide Allergy Unknown Verified 11/11/23 08:29
Antibiotics)
Home Medications
ferrous sulfate 325 mg (65 mg iron) tablet (Iron (ferrous sulfate)) 325 mg PO BID Supplement 03/25/21
cholecalciferol (vitamin D3) 25 mcg (1,000 unit) tablet (Vitamin D3) 25 mcg PO DAILY Supplement #0 tabs 09/20/23
clopidogrel 75 mg tablet 75 mg PO DAILY Heart disease/condition #30 tabs 09/20/23
empagliflozin 10 mg tablet (Jardiance) 10 mg PO DAILY diabetes #0 tabs 09/20/23
gabapentin 100 mg capsule 100 mg PO HS Pain #0 caps 09/20/23
metoprolol succinate 25 mg tablet,extended release 24 hr 25 mg PO DAILY Heart disease/condition #30 tabs 09/20/23
therapeutic multivitamin 1 tab PO DAILY Supplement #0 tabs 09/20/23
sitagliptin phosphate 50 mg tablet (Januvia) 50 mg PO NOON Diabetes 11/03/23
candesartan 8 mg tablet 8 mg PO BID Blood pressure #60 tabs 11/08/23
insulin glargine 100 unit/mL (3 mL) subcutaneous pen (Lantus Solostar U-100 Insulin) 25 unit (0.25 mL) SC QPM Diabetes #0 mL 11/08/23
pantoprazole 40 mg tablet,delayed release 40 mg PO DAILY Gastrointestinal issue #30 tabs 11/08/23
amlodipine 2.5 mg tablet (Norvasc) 2.5 mg PO BID Blood pressure #60 tabs 11/09/23
acetaminophen 325 mg tablet 650 mg PO Q4HPRN PRN mild pain 11/11/23
aspirin 81 mg tablet,delayed release 81 mg PO HS Heart disease/condition 11/11/23
cyanocobalamin (vitamin B-12) 1 tab PO DAILY 11/11/23
furosemide 40 mg tablet (Lasix) 40 mg PO Q48H@0800 Fluid retention/Swelling 11/11/23
promethazine 6.25 mg/5 mL oral syrup 6.25 mg PO Q4HPRN PRN cough 11/11/23
rosuvastatin 40 mg tablet (Crestor) 40 mg PO HS High cholesterol 11/11/23
Review of Systems
-
History Source: Patient and Family ( and son at bedside)
A 12 point ROS was completed and negative except as noted: Yes
Constitutional: Denies Fever or Fatigue
EENT: Denies Sore Throat or Runny Nose
Respiratory: Denies Cough or Trouble Breathing
Cardiac: Reports Chest Pain (Along sternal incision and chest pressure to left and right upper chest); Denies Palpitations or Syncope
Abdomen/GI: Reports Abdominal Pain; Denies Nausea, Vomiting, Diarrhea, Constipated, Bloody Stools or Black Stools
: Denies Dysuria, Frequency, Flank Pain, Incontinence, Difficulty Voiding or Urgency
Musculoskeletal: Denies Joint Pain, Joint Swelling or Edema
Skin: Denies Itching or Rash
Neurological: Reports Headache (Posterior head); Denies Dizzy or Weakness
Endocrine: Reports No Symptoms
Hematologic/Lymphatic: Reports No Symptoms
Psych: Reports Calm
Physical Exam
Vital Signs
Vital Signs
Temp Pulse Resp BP Pulse Ox
97.7 F 61 17 143/54 99
11/11/23 08:29 11/11/23 10:15 11/11/23 10:15 11/11/23 10:00 11/11/23 10:15
Physical Exam
General: Well Nourished, No Apparent Distress, Conversant and Pain; No Fever or Chills
HEENT: NormoCephalic, Anicteric, Moist mucous membranes, PERRLA, [place] Conjunctivae, No Ptosis and Neck Nontender
Respiratory: Clear; No Wheezes, Rales or Rhonchi
Cardiac: S1/S2, Regular Rhythm and Other (Healing sternal incision with scabbing, no surrounding erythema or drainage slight chest wall tenderness to palpation, burning sensation reported along sternal linear incision); No Murmur, Rub, Gallop or
Peripheral Edema
Breast: Deferred by me
GI: Soft, Non Tender, Non Distended, Normal Bowel Sounds and No Hepatosplenomegaly
Rectal: Deferred by Provider
Genito-urinary: Deferred by me
Musculoskeletal: No Clubbing, No Cyanosis and No Edema
Skin: Warm and Dry; No Rash
Neuro: AO x 3, No Motor Deficits, Nonfocal/grossly intact, Cranial Nerves Intact and No Sensory Deficits; No Slurred Speech, Facial Droop or Tremors
Psych: Calm
Laboratory Results
-
11/11/23 08:38
11/11/23 08:38
Laboratory Results
Total Bilirubin 0.5 mg/dl (0.2-1.3) 11/11/23 08:38
AST 35 U/L (14-36) 11/11/23 08:38
ALT 22 U/L (0-35) 11/11/23 08:38
Alkaline Phosphatase 89 U/L (38-126) 11/11/23 08:38
Troponin I 0.263 ng/ml H* 11/11/23 08:38
Data Reviewed
-
Diagnostic Radiology: Report Reviewed by me
Lab Data: Labs Reviewed by me
Impression/Plan
-
Impression/plan:
Observation telemetry
#Chest burning likely healing incisional pain status post CABG
-Healing sternal incision no surrounding erythema or exudate
#CP with Non-TX troponin elevation
-Troponin 0.263 will trend(was 1.57 on 11/07/2023)
-Continue Plavix, statin, aspirin, beta-gigi
CXR: No acute cardiopulmonary process
EKG: NSR 63 bpm, QTc 421 MS no significant change from 11/07/2023
#CAD/cardiac stents
#Ramus intermedius stent October 2023
#Status post CABG x 2 THURMAN to LAD, SVG to RI, atrial clip on 09/16/2023
#Proximal RCA stent 2002, LAD stent May 2002, ramus PTCA 2004 with stent proximal and mid LAD May 2012
-Continue Plavix 75 mg daily(recent stent 11/07/2023)
-cont beta-gigi, statin, aspirin 81 mg daily
2D echo 11/06/2023: EF 55 to 60%, normal LVSF, LVS, no wall abnormalities, mild LVH no change from JAMA on 09/16/2023
#DEBBIE on CKD 3B
Creat 1.8 was 1.1 on 11/09/2023 (baseline creat 1.3�1.7)
Hold Lasix 40 mg every 48 H
-HOLD Atacand 8 mg bid
-Iv hydralazine 10 mg q6h Sbp >160
-IV NSS 500 cc bolus given in ER continue 60 cc an hour x 1 L
-Follow BMP in a.m.
- Consult Nephro
#HTN�benign
143/54
-Continue Norvasc 2.5 mg twice daily, metoprolol succinate 25 mg daily
- HOLD Atacand 8 mg twice daily
#HLD
-Continue Crestor 40 mg at bedtime
#DM2/diabetic neuropathy
BS 151, HgbA1c 6.6 on 11/07/2023 was decreasing from upper 7's
-Continue Januvia 50 mg at noon, Jardiance 10 mg daily, Lantus 25 units every afternoon
-Continue gabapentin 100 mg at bedtime
#Iron deficiency anemia
Hgb 10.4 stable
#Sleep apnea hx
DVT prophylaxis
Subcu heparin
Full code
--- NOTE | 2023-11-11 12:24 | EDRN ---
Ami GARCÍA in room w/ pt at this time.
--- NOTE | 2023-11-11 12:42 | EDRN ---
Repeat troponin drawn and sent. ED PCT doing repeat EKG at this time.
--- NOTE | 2023-11-11 12:52 | EDRN ---
Dr. Murillo in w/ pt at this time.
--- NOTE | 2023-11-11 13:34 | EDRN ---
Pt ambulated w/out assist to and from BR at this time.
--- NOTE | 2023-11-11 14:50 | EDRN ---
Apresoline not administered in ER as SBP from 13:42 to present < 160.
[2023-11-11] MEDS: NSS 1000 IV (15:42)
--- NOTE | 2023-11-11 16:45 | PTCARENOTE ---
Received patient from ED via stretcher. Patient denies chest pain at this time. Family at bedside. Call alexander within reach. Plan of care ongoing.
[2023-11-11 16:58] LABS: Glucose - Point of Care 150 mg/dl (70-99)
--- NOTE | 2023-11-11 17:06 | W.CON.NEPH ---
Consultation
-
Date/Time Consultation Requested: 11/11/2023 1:00pm
Date/Time Consultation Performed: 11/11/2023 5:00 PM
Requesting Provider: Katey
Performing Provider: Jan
Reason for Consultation: DEBBIE
Medical History
-
Chief Complaint: Acute kidney injury
History of Present Illness:
The patient is a 73-year-old female with a past medical history of chronic kidney disease stage III who is followed by Dr. Luque of our practice and maintains a creatinine of 1.6 as of September 2023. She has a history of hypertension and is
maintained on the combination of amlodipine recently escalated candesartan (during her past admission late last week). She has a history of diabetes and is maintained on Jardiance, Januvia, and insulin. She is maintained on Lasix for a history of
congestive heart failure. She was recently admitted to the hospital from November 05 until November 08 with non-ST elevation GA following a CABG admission in September 2023. She was discharged with a creatinine of 1.1 on November 08. She re-presented
to the hospital last evening with substernal chest burning and a creatinine of 1.8 and nephrology was asked to see the patient for her acute kidney injury
Past Medical History
Hypertension
Type 2 diabetes
Hyperlipidemia
stage III chronic kidney disease
Iron deficiency anemia
Coronary artery disease with stent placement multiple/CABG x 2 vessel
Sleep apnea
CKD 3B
Ramus intermedius stent October 2023
Status post CABG x 2 THURMAN to LAD, SVG to RI, atrial clip on 09/16/2023
Proximal RCA stent 2002, LAD stent May 2002, ramus PTCA 2004 with stent proximal and mid LAD May 2012
Coronary artery bypass graft
Cardiac stent
Spine surgery
Cholecystectomy
Cataract surgery
Social History
Tobacco: Non-Smoker
Alcohol: None
Drug: None
Personal:
Living: With Family
Family History
No CKD
Allergies / Home Medications
Allergy/AdvReac Type Severity Reaction Status Date / Time
diphenhydramine HCl Allergy Unknown Verified 11/11/23 08:29
[From Benadryl]
Penicillins Allergy Unknown Verified 11/11/23 08:29
Sulfa (Sulfonamide Allergy Unknown Verified 11/11/23 08:29
Antibiotics)
�Medication �Instructions �Recorded �Confirmed �Type
ferrous sulfate 325 mg (65 mg 325 mg PO BID Supplement 03/25/21 11/11/23 History
iron) tablet (Iron (ferrous
sulfate))
cholecalciferol (vitamin D3) 25 25 mcg PO DAILY Supplement #0 tabs 09/20/23 11/11/23 Rx
mcg (1,000 unit) tablet (Vitamin
D3)
clopidogrel 75 mg tablet 75 mg PO DAILY Heart 09/20/23 11/11/23 Rx
disease/condition #30 tabs
empagliflozin 10 mg tablet 10 mg PO DAILY diabetes #0 tabs 09/20/23 11/11/23 Rx
(Jardiance)
gabapentin 100 mg capsule 100 mg PO HS Pain #0 caps 09/20/23 11/11/23 Rx
metoprolol succinate 25 mg 25 mg PO DAILY Heart 09/20/23 11/11/23 Rx
tablet,extended release 24 hr disease/condition #30 tabs
therapeutic multivitamin 1 tab PO DAILY Supplement #0 tabs 09/20/23 11/11/23 Rx
sitagliptin phosphate 50 mg tablet 50 mg PO NOON Diabetes 11/03/23 11/11/23 History
(Januvia)
candesartan 8 mg tablet 8 mg PO BID Blood pressure #60 tabs 11/08/23 11/11/23 Rx
insulin glargine 100 unit/mL (3 25 unit (0.25 mL) SC QPM Diabetes 11/08/23 11/11/23 Rx
mL) subcutaneous pen (Lantus #0 mL
Solostar U-100 Insulin)
pantoprazole 40 mg tablet,delayed 40 mg PO DAILY Gastrointestinal 11/08/23 11/11/23 Rx
release issue #30 tabs
amlodipine 2.5 mg tablet (Norvasc) 2.5 mg PO BID Blood pressure #60 11/09/23 11/11/23 Rx
tabs
acetaminophen 325 mg tablet 650 mg PO Q4HPRN PRN mild pain 11/11/23 11/11/23 History
aspirin 81 mg tablet,delayed 81 mg PO HS Heart disease/condition 11/11/23 11/11/23 History
release
cyanocobalamin (vitamin B-12) 1 tab PO DAILY Supplement 11/11/23 11/11/23 History
furosemide 40 mg tablet (Lasix) 40 mg PO Q48H@0800 Fluid 11/11/23 11/11/23 History
retention/Swelling
promethazine 6.25 mg/5 mL oral 6.25 mg PO Q4HPRN PRN cough 11/11/23 11/11/23 History
syrup
rosuvastatin 40 mg tablet (Crestor) 40 mg PO HS High cholesterol 11/11/23 11/11/23 History
Review of Systems
-
History Source: Patient
All other systems: Negative unless noted
Constitutional: No Symptoms
EENT: No Symptoms
Respiratory: No Symptoms
Cardiac: Chest Pain
Abdomen/GI: No Symptoms
: No Symptoms
Musculoskeletal: No Symptoms
Skin: No Symptoms
Neurological: No Symptoms
Endocrine: No Symptoms
Hematologic/Lymphatic: No Symptoms
Physical Exam
Vital Signs
Vital Signs
Temp Pulse Resp BP Pulse Ox
97.2 F 73 17 170/60 99
11/11/23 16:24 11/11/23 16:24 11/11/23 16:24 11/11/23 16:24 11/11/23 16:47
Lab Results
WBC 7.8 10^3/uL (4.8-10.8) 11/11/23 08:38
RBC 3.77 10^6/uL (4.20-5.40) L 11/11/23 08:38
Hgb 10.4 g/dL (12.0-16.0) L 11/11/23 08:38
Hct 31.4 % (37.0-47.0) L 11/11/23 08:38
Plt Count 209 10^3/uL (130-400) 11/11/23 08:38
Sodium 134 mmol/L (135-145) L 11/11/23 08:38
Potassium 4.1 mmol/L (3.5-5.1) 11/11/23 08:38
Chloride 100 mmol/L (98-107) 11/11/23 08:38
Carbon Dioxide 26 mmol/L (22-30) 11/11/23 08:38
BUN 37 mg/dl (7-17) H 11/11/23 08:38
Creatinine 1.8 mg/dL (0.6-1.0) H 11/11/23 08:38
eGFR 29.02 11/11/23 08:38
Glucose 151 mg/dl (70-99) H 11/11/23 08:38
Calcium 9.8 mg/dl (8.4-10.2) 11/11/23 08:38
Albumin 3.8 g/dl (3.5-5.0) 11/11/23 08:38
Physical Exam
General: AOx3, No Distress and Nontoxic
HEENT: PERRL, EOMI, Anicteric, Conjunctivae Clear, Ear/Nose Intact, Hearing Normal, Oropharynx Clear/Moist, Dentition Intact, Neck Supple, Trachea Midline, No JVD and No Thyromegaly
Respiratory: Crackels (At bases), Normal Excursion and Nonlabored Respirations
Cardiac: S1/S2 and Regular Rate/Rhythm
Breast: Deferred by me
Abdomen: Soft, Nontender, Nondistended, Normal Bowel Sounds and No Hepatosplenomegaly
Rectal: Deferred by Provider
Genito-urinary: No Costovertebral Tender and Clear Urine
Musculoskeletal: No Clubbing, No Cyanosis and No Edema
Skin: No Rash, No Clubbing, No Cyanosis, Normal Turgor and No Bruising
Neuro: Nonfocal/Grossly Intact, CN II-XII (Intact) and Strength (5 out of 5 in all extremity)
Hematologic/Lymphatic: No Cervical Lymphadenopathy, No Submandibular Lymphadenopathy and No Supraclavicular Lymphadenopathy
Psych: Mood/afflect pleasant, Insight/judgement good and Appropriate
Assessment/Plan
-
Impression:
Acute kidney injury
CKD with baseline creatinine of 1.4-1.6
Chest discomfort on exertion
Recent non-ST elevation GA
S/P CABG x2 and LAAL (THURMAN to LAD, SVG to RI, #35 AtriClip) on 09/16/2023, Dr. Patel
Multidrug-resistant hypertension
Diabetes
Plan:
-Agree that acute kidney injury is likely prerenal in origin possibly due from contrast administration during recent catheterization in combination with titration of ARB in the presence of SGLT2 inhibitor
-With holding ARB at this time
-Bladder scan to assess for urinary retention
-Currently holding diuretic
-1 L of normal saline to be provided
-Will consider discontinue of SGLT2 inhibitor if creatinine does not improve
-Accurate I's and Os
-Check urinalysis and fractional excretion of sodium
-No evidence of gross volume overload on exam or chest x-ray
Data Reviewed
-
Radiology: Image Personally Visualized and interpreted (Chest x-ray personally reviewed: No CHF or pneumonia)
Medical Tests (Nuc Med, Echo etc): Other (EKG report reviewed normal sinus rhythm with nonspecific ST wave abnormalities by report)
Labs: Labs Reviewed by me (Basic metabolic panel reviewed)
Old Records: Reviewed (Reviewed old creatinine level from 11/09/2023 1.1, reviewed discharge summary from last hospitalization)
[2023-11-11] MEDS: APRESOLINE 10 MG IV (17:49)
[2023-11-11] MEDS: NOVOLOG FLEXPEN-LOW RESISTANCE 1 UNITS SC (17:51)
[2023-11-11 19:15] LABS: Troponin I 0.165 ng/ml
[2023-11-11] MEDS: FEOSOL 325 MG PO (20:24)
[2023-11-11] MEDS: NORVASC 2.5 MG PO (20:24)
[2023-11-11] MEDS: NSS (PRESERVATIVE FREE) 10 ML IV (20:25)
[2023-11-11] MEDS: HEPARIN 5000 UNITS SC (20:25)
[2023-11-11] MEDS: PROTONIX IV 40 MG IV (20:25)
--- NOTE | 2023-11-11 20:25 | PTCARENOTE ---
Pt complained of 7/10 burning pain throughout middle chest. FLOTATION TENDER HELPER made aware. ECG obtained. FLOTATION TENDER HELPER at bedside, new orders provided, see MAR, maalox and protonix IV push provided, nitro PRN added. Pt expressed relief. Will reassess.
[2023-11-11] MEDS: MAALOX 30 ML PO (20:28)
[2023-11-11 21:54] LABS: Glucose - Point of Care 233 mg/dl (70-99)
[2023-11-11] MEDS: NEURONTIN 100 MG PO (22:41)
[2023-11-11] MEDS: ASPIR LOW (ENTERIC COATED) 81 MG PO (22:41)
[2023-11-11] MEDS: CRESTOR 40 MG PO (22:41)
[2023-11-11] MEDS: LANTUS 0.25 UNITS SC (22:41)
[2023-11-11] MEDS: NITROSTAT (SUBLINGUAL) 0.400000000000000022 MG SL ×3 (22:45→22:55)
[2023-11-11 22:56] LABS: Urine Albumin Negative (Neg - Trace); Urine Bilirubin Negative (Negative); Urine Character Clear (Clear); Urine Color Yellow; Urine Glucose 3+ (Negative); Urine Ketone Negative (Negative); Urine Leukocyte Negative (Negative); Urine Nitrite Negative (Negative); Urine Occult Blood Negative (Negative); Urine Urobilinogen Negative (Neg - 1+)
--- NOTE | 2023-11-11 23:05 | PTCARENOTE ---
Pt complained of 5/10 chest pain, nitro x3 provided per protocol. Pt pain decreased to 1/10. Vital signs obtained. EXTRUSION DIE REPAIRER made aware.
[2023-11-11 23:12] LABS: Urine Sodium 75 mmol/L (30-90)
[2023-11-12 03:51] VITALS: BP 139/60
[2023-11-12 06:00] VITALS: BMI 31.2
[2023-11-12 06:15] LABS: % Basophils 0.4 % (0-2); % Eosinophils 2.8 % (0-6); % Immature Granulocytes 0.4 % (0-0.5); % Lymphocytes 32.3 % (20.5-51.1); % Neutrophils 58.1 % (42.2-75.2); Absolute Eosinophils 0.2 10^3/uL (0-0.7); Absolute Lymphocytes 2.3 10^3/uL (1.2-3.4); Absolute Monocytes 0.4 10^3/uL (0.1-0.6); Absolute Neutrophils 4.1 10^3/uL (1.4-6.5); Hematocrit 27.9 % (37.0-47.0); Mean Corp Hgb Conc. 32.3 g/dL (33.0-37.0); Mean Corpuscular Hgb 27.1 pg (27.0-31.0); Mean Platelet Volume 10.4 fL (7.4-10.4); Nucleated Red Blood Cells % 0 %; Platelet Count 198 10^3/uL (130-400); Red Blood Cell Count 3.32 10^6/uL (4.20-5.40); White Blood Cell Count 7.1 10^3/uL (4.8-10.8)
[2023-11-12 06:31] LABS: Blood Urea Nitrogen 30 mg/dl (7-17); Calcium 9.5 mg/dl (8.4-10.2); Carbon Dioxide 26 mmol/L (22-30); Chloride 108 mmol/L (98-107); Estimated Creatinine Clearance 28 ml/min; Glucose 81 mg/dl (70-99); Sodium 141 mmol/L (135-145); eGFR 39.23
[2023-11-12 06:38] LABS: Potassium 3.9 mmol/L (3.5-5.1)
[2023-11-12 07:00] VITALS: BP 137/55
[2023-11-12 07:44] LABS: Glucose - Point of Care 94 mg/dl (70-99)
--- NOTE | 2023-11-12 08:00 | W.PN.CD ---
Today's Communication / Plan
-
HTN management complicated by DEBBIE, nephrology involved
CP free
OK for home from cardiac standpoint
Increase amlodipine to 5 AM and 2.5 PM
Impression / Plan
-
CP yesterday not felt to be from CAD/cardiac ischemia
- Echo yesterday: LV unremarkable
Abnormal troponin, non-ischemic myocardial injury
CAD
-S/P CABG x2 and LAAL (THURMAN to LAD, SVG to RI, #35 AtriClip) on 09/16/2023, Dr. Patel
-S/P ROHIT to 95% touchdown site lesion in the ramus intermedius branch 11/07/[address] Pires
-Continue BB, DAPT, and rosuvastatin
HTN, multidrug
-Hold candesartan given DEBBIE
-Amlodipine added last admission => will increase 5 mg AM and 2.5 bid (from 2.5 BID)
DEBBIE on CKD3a
- Nephrology on board, Cr improved
-Renal function worsening with resumption of Candesartan, hold
-S/P dyeload ([facility] 11/07/23)
Type II DM, per primary
HLD, continue high intensity statin
Subjective:
No CP or dyspnea
Physical Exam
Vital Signs/Labs
Vital Signs
Temp Pulse Resp BP Pulse Ox
97.3 F 77 16 137/55 98
11/12/23 07:00 11/12/23 07:00 11/12/23 07:00 11/12/23 07:00 11/12/23 07:00
11/11/23 11/12/23 11/13/23
06:59 06:59 06:59
Actual Weight 67.755 kg
11/12/23 06:03
11/12/23 06:03
LAB Results
11/11/23 11/11/23 11/11/23
08:38 12:41 18:42
Troponin I 0.263 H* 0.170 H* D 0.165 H*
Physical Exam
Constitutional: No acute distress
EENT: Anicteric
Cardiovascular: Rhythm & rate is regular and Pedal edema is absent
Respiratory: Respiratory effort normal and Lungs clear to auscul.
GI: Distention absent
Neuro/Psych: AO x 3
Data Reviewed
-
Date of Service: November 12, 2023
[2023-11-12] MEDS: NOVOLOG FLEXPEN-LOW RESISTANCE SC ×2 (08:35→11:48)
--- NOTE | 2023-11-12 08:36 | W.PN.HOSP.TC ---
Today's Communication/Plan
-
believe can be discharged later today after seen by nephrology and decision on candesartan dosing
Amlodipine increased to 5 mg a.m. continue 2 point 5 PM
Assessment / Plan
Assessment / Plan
#Chest burning likely healing incisional pain status post CABG
-Healing sternal incision no surrounding erythema or exudate
#CP with Non-CA troponin elevation
-Troponin 0.263 will trend(was 1.57 on 11/07/2023)
-Continue Plavix, statin, aspirin, beta-gigi
CXR: No acute cardiopulmonary process
EKG: NSR 63 bpm, QTc 421 MS no significant change from 11/07/2023
#CAD/cardiac stents
#Ramus intermedius stent October 2023
#Status post CABG x 2 THURMAN to LAD, SVG to RI, atrial clip on 09/16/2023
#Proximal RCA stent 2002, LAD stent May 2002, ramus PTCA 2004 with stent proximal and mid LAD May 2012
-Continue Plavix 75 mg daily(recent stent 11/07/2023)
-cont beta-gigi, statin, aspirin 81 mg daily
2D echo 11/06/2023: EF 55 to 60%, normal LVSF, LVS, no wall abnormalities, mild LVH no change from JAMA on 09/16/2023
#DEBBIE on CKD 3B
Creat 1.8 was 1.1 on 11/09/2023 (baseline creat 1.3�1.7)
Hold Lasix 40 mg every 48 H
-HOLD Atacand 8 mg bid
-Iv hydralazine 10 mg q6h Sbp >160
-IV NSS 500 cc bolus given in ER continue 60 cc an hour x 1 L
-Follow BMP in a.m.
- Consult Nephro/believe can be discharged later today after seen by nephrology and decision on candesartan dosing
#HTN�benign
143/54
-Continue Norvasc 2.5 mg twice daily, metoprolol succinate 25 mg daily
- HOLD Atacand 8 mg twice daily
-Cardiology is increased amlodipine from 2.5 to 5 mg in a.m. continue 2 point 5 PM at discharge
#HLD
-Continue Crestor 40 mg at bedtime
#DM2/diabetic neuropathy
BS 151, HgbA1c 6.6 on 11/07/2023 was decreasing from upper 7's
-Continue Januvia 50 mg at noon, Jardiance 10 mg daily, Lantus 25 units every afternoon
-Continue gabapentin 100 mg at bedtime
#Iron deficiency anemia
Hgb 10.4 stable
#Sleep apnea hx
DVT prophylaxis
Subcu heparin
Full code
Anticipated Discharge: Today
Subjective/Interval History
-
Date of Service: November 12, 2023
Does not admit to any further chest pain no respiratory issues overnight
Objective Data
-
Labs:
Laboratory Results
11/12/23
06:03
WBC 7.1
Hgb 9.0 L
Hct 27.9 L
Plt Count 198
Sodium 141
Potassium 3.9
Chloride 108 H
Carbon Dioxide 26
BUN 30 H
Creatinine 1.4 H
Glucose 81
Calcium 9.5
Vital Signs:
Vital Signs
Temp Pulse Resp BP Pulse Ox
97.3 F 77 16 137/55 98
11/12/23 07:00 11/12/23 07:00 11/12/23 07:00 11/12/23 07:00 11/12/23 07:00
I&O
11/11/23 11/12/23 11/13/23
06:59 06:59 06:59
Intake Total 1560 / 1560
Output Total 500 / 500
Balance 1060 / 1060
Review of Systems
-
EENT: Reports No Symptoms Reported
Respiratory: Reports No Symptoms
Cardiac: Reports No Symptoms
Physical Exam
-
General: Well Developed
HEENT: Normocephalic
Respiratory: Clear to Auscultation
Cardiac: Regular Rhythm, S1/S2 and Other (Sternotomy scar healing)
GI: Soft
Psych: Calm
Data Reviewed
-
Total Time Spent with Patient (in minutes): 56
Labs: Labs Reviewed by me (Creatinine down to 1.4 from 1.8 on admission. Troponin continues to trend down)
[2023-11-12] MEDS: FEOSOL 325 MG PO (08:55)
[2023-11-12] MEDS: PROTONIX 40 MG PO (08:55)
[2023-11-12] MEDS: VITAMIN B-12 1000 MCG PO (08:55)
[2023-11-12] MEDS: THERAGRAN 1 TABLET PO (08:56)
[2023-11-12] MEDS: PLAVIX 75 MG PO (08:56)
[2023-11-12] MEDS: NORVASC 2.5 MG PO (08:56)
[2023-11-12] MEDS: JARDIANCE 10 MG PO (08:56)
[2023-11-12] MEDS: HEPARIN 5000 UNITS SC (08:57)
[2023-11-12] MEDS: VITAMIN D3 (cholecalciferol) 25 MCG PO (08:57)
[2023-11-12] MEDS: TOPROL XL 25 MG PO (08:57)
[2023-11-12 11:00] VITALS: BP 145/65
--- NOTE | 2023-11-12 11:40 | CM ---
met with patient who lives with her and son in house with 2 steps to enter,her bed and bath is on the second level,she ambulates I and is I with her adl's.patient has a cpap she uses at night and a freestyle diabetic monitor which she
checks frequently.she has had dhvn in past after cabg surgrey in sep. she has no ip rehab episodes.patient is adm with bari and chest pain.she is stable for dc home today with no home care needs. to transport home.
Plan:discharge home with no home care needs.
[2023-11-12 11:48] LABS: Glucose - Point of Care 141 mg/dl (70-99)
[2023-11-12] MEDS: JANUVIA 50 MG PO (11:48)
[2023-11-12 12:15] VITALS: PULSE 72; O2SAT 99
[2023-11-12 12:15] LABS: Glucose - Point of Care 144 mg/dl (70-99)
--- NOTE | 2023-11-12 12:27 | PTOTSP ---
Patient with good tolerance for OOB mobility, transfers, ambulation and elevations. Good insight into safety with mobility without use of AD.
Would benefit from outpatient cardiac rehab to progress higher levels of endurance training.
Does not demonstrate further need for skilled therapy in house and will be discharged. If needs change, please re-consult.
[2023-11-12] MEDS: PHENERGAN SYRUP 6.25 MG PO (14:25)
--- NOTE | 2023-11-12 14:50 | W.DS.TRANS ---
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
-
Discharge Instructions:
Discharge Diagnosis/Procedures Acute kidney injury
Chronic kidney disease stage IIIb
Essential hypertension
Non-SD troponin elevation
Diet Diabetic, Carb Controlled
Activity As tolerated
Driving Restrictions As prior to admission
Instructions:
Stand-Alone Forms:
Changes to Home Medications: Yes
Discharge Medications:
DC Medications w/original date entered in [facility]
ferrous sulfate 325 mg (65 mg iron) tablet (Iron (ferrous sulfate)) 325 mg PO BID Supplement 03/25/21
cholecalciferol (vitamin D3) 25 mcg (1,000 unit) tablet (Vitamin D3) 25 mcg PO DAILY Supplement #0 tabs 09/20/23
clopidogrel 75 mg tablet 75 mg PO DAILY Heart disease/condition #30 tabs 09/20/23
empagliflozin 10 mg tablet (Jardiance) 10 mg PO DAILY diabetes #0 tabs 09/20/23
gabapentin 100 mg capsule 100 mg PO HS Pain #0 caps 09/20/23
metoprolol succinate 25 mg tablet,extended release 24 hr 25 mg PO DAILY Heart disease/condition #30 tabs 09/20/23
therapeutic multivitamin 1 tab PO DAILY Supplement #0 tabs 09/20/23
sitagliptin phosphate 50 mg tablet (Januvia) 50 mg PO NOON Diabetes 11/03/23
insulin glargine 100 unit/mL (3 mL) subcutaneous pen (Lantus Solostar U-100 Insulin) 25 unit (0.25 mL) SC QPM Diabetes #0 mL 11/08/23
pantoprazole 40 mg tablet,delayed release 40 mg PO DAILY Gastrointestinal issue #30 tabs 11/08/23
acetaminophen 325 mg tablet 650 mg PO Q4HPRN PRN mild pain 11/11/23
aspirin 81 mg tablet,delayed release 81 mg PO HS Heart disease/condition 11/11/23
cyanocobalamin (vitamin B-12) 1 tab PO DAILY Supplement 11/11/23
furosemide 40 mg tablet (Lasix) 40 mg PO Q48H@0800 Fluid retention/Swelling 11/11/23
promethazine 6.25 mg/5 mL oral syrup 6.25 mg PO Q4HPRN PRN cough 11/11/23
rosuvastatin 40 mg tablet (Crestor) 40 mg PO HS High cholesterol 11/11/23
amlodipine 2.5 mg tablet 5 mg (2 x 2.5 mg) PO BID #30 tabs 11/12/23
candesartan 8 mg tablet 4 mg (1/2 x 8 mg) PO BID Blood pressure #60 tabs 11/12/23
Home Medication Changes
amlodipine 2.5 mg tablet 5 mg (2 x 2.5 mg) PO BID #30 tabs 11/12/23
candesartan 8 mg tablet 4 mg (1/2 x 8 mg) PO BID Blood pressure #60 tabs 11/12/23
Pending Results: No
Total time spent discharging patient (in min): 38
--- NOTE | 2023-11-12 14:51 | W.DCSUMMARY ---
Discharge Summary
Discharge Data
Date of Admission: 11/11/23
Date of Discharge: 11/12/23
-
Pending Results: No
Hospital Course
73-year-old female who presented with atypical type presentation of chest pain after recently undergoing CABG x 2 in September of this year and subsequent also a ROHIT to a 95% touchdown site lesion in the ramus intermedius was performed on [address] Babcock chest pain was described as squeezing type surrounding the sternotomy site and also described only at rest and never on exertion she presented with also apparent new onset of acute kidney injury with an elevated creatinine of 1.8 and
baseline from her 1.11.2 creatinine levels. She was admitted with a presumptive diagnosis of acute kidney injury possibly related to contrast nephropathy versus also recent increase in her ARB in the form of candesartan had been increased from 4 mg
twice but twice a day 8 mg.
At time of presentation the patient had also reproducible chest discomfort on palpation again atypical for ischemic burden and troponins were documented to continue trending down from previous levels at time of for stent placement. She was seen by
the cardiology service who concurred with atypical presentation and felt to be noncardiac and a repeat echocardiogram was again reviewed showing no left ventricular dysfunction large wall motion abnormality changes candesartan was held at time of
presentation nephrology was consulted as she has been manage and followed by Dr. Luque on the outpatient nephrology service for hypertension management. With IV hydration both and bolus in the emergency room and subsequently overnight creatinine came
down to 1.4 she has been symptom-free throughout the night after admission to observation status and now deemed stable for discharge after being seen and evaluated by the cardiology service who recommended increasing dosing of amlodipine to 5 mg
twice a day which is called into her local pharmacy we will resume her candesartan but at reduced dosage of 4 mg twice a day.
Stable for discharge on this date
Presumptive diagnosis is acute kidney injury in relation to contrast nephropathy and or recent addition in dosing and increasing ARB she will follow-up with cardiology as scheduled as outpatient thank
Discharge Plan
-
Patient Disposition: Home (Routine Discharge)
Discharge Diagnosis/Procedures: Acute kidney injury
Chronic kidney disease stage IIIb
Essential hypertension
Non-SD troponin elevation
Diet: Diabetic, Carb Controlled
Activity: As tolerated
Driving Restrictions: As prior to admission
Referrals:
Charles Key MD [Family Provider] -
Prescriptions:
New
amlodipine 2.5 mg Tablet
5 mg PO BID Qty: 30 0RF
Continued
ferrous sulfate [Iron (ferrous sulfate)] 325 MG tablet
325 mg PO BID
clopidogrel 75 mg Tablet
75 mg PO DAILY Qty: 30 1RF
therapeutic multivitamin Tablet
1 tab PO DAILY Qty: 0 0RF
gabapentin 100 mg Capsule
100 mg PO HS Qty: 0 0RF
cholecalciferol (vitamin D3) [Vitamin D3] 25 mcg (1,000 unit) Tablet
25 mcg PO DAILY Qty: 0 0RF
Jardiance 10 mg Tablet
10 mg PO DAILY Qty: 0 0RF
metoprolol succinate 25 mg Tablet Extended Release 24 Hr
25 mg PO DAILY Qty: 30 1RF
Januvia 50 mg tablet
50 mg PO NOON
pantoprazole 40 mg Tablet,Delayed Release (Dr/Ec)
40 mg PO DAILY Qty: 30 0RF
insulin glargine [Lantus Solostar U-100 Insulin] 100 unit/mL (3 mL) insulin pen
25 unit SC QPM Qty: 0 0RF
promethazine 6.25 mg/5 mL Syrup
6.25 mg PO Q4HPRN PRN (Reason: cough)
cyanocobalamin (vitamin B-12)
1 tab PO DAILY
furosemide [Lasix] 40 mg tablet
40 mg PO Q48H@0800
acetaminophen 325 mg tablet
650 mg PO Q4HPRN PRN (Reason: mild pain)
aspirin 81 mg tablet,delayed release (DR/EC)
81 mg PO HS
rosuvastatin [Crestor] 40 mg tablet
40 mg PO HS
Changed
candesartan 8 mg Tablet
4 mg PO BID Qty: 60 0RF
Discontinued
amlodipine [Norvasc] 2.5 mg tablet
2.5 mg PO BID Qty: 60 0RF
Discharge Orders:
Discharge Patient (As Directed); Ordered 11/12/23
Ordered By: Ernesto Gomez
Discharge Date and Time
Discharge Date/Time: 11/12/23 14:35
Print Language: ERITREAN
== END 2023-11-12 14:35 | disposition home or self-care (01) ==
LOC: 3 WEST ACU 12:50
PROVIDERS: Clinical Nurse Specialist Family Health; Emergency Medicine; Nurse Practitioner Gerontology; ADMITTING PHYSICIAN Internal Medicine; CONSULT PHYSICIAN Internal Medicine Cardiovascular Disease; EMERGENCY PHYSICIAN Emergency Medicine; FAMILY PHYSICIAN Internal Medicine; OTHER PHYSICIAN Specialist
DX: R07.89 Other chest pain (principal); I5A Non-ischemic myocardial injury (non-traumatic); N17.9 Acute kidney failure, unspecified; N18.32 Chronic kidney disease, stage 3b; I21.4 Non-ST elevation (NSTEMI) myocardial infarction; E11.22 Type 2 diabetes mellitus with diabetic chronic kidney disease; I13.0 Hypertensive heart and chronic kidney disease with heart failure and stage 1 through stage 4 chronic kidney disease, or unspecified chronic kidney disease; I50.9 Heart failure, unspecified; I25.10 Atherosclerotic heart disease of native coronary artery without angina pectoris; D50.9 Iron deficiency anemia, unspecified; G47.30 Sleep apnea, unspecified; K21.9 Gastro-esophageal reflux disease without esophagitis; E78.00 Pure hypercholesterolemia, unspecified; Z95.5 Presence of coronary angioplasty implant and graft; Z98.1 Arthrodesis status; Z79.02 Long term (current) use of antithrombotics/antiplatelets; Z79.84 Long term (current) use of oral hypoglycemic drugs; Z79.4 Long term (current) use of insulin; Z79.82 Long term (current) use of aspirin; Z95.1 Presence of aortocoronary bypass graft; Z82.49 Family history of ischemic heart disease and other diseases of the circulatory system; Z82.3 Family history of stroke; Z92.3 Personal history of irradiation; Z88.0 Allergy status to penicillin; Z88.2 Allergy status to sulfonamides; Z88.8 Allergy status to other drugs, medicaments and biological substances; Z90.49 Acquired absence of other specified parts of digestive tract; E11.40 Type 2 diabetes mellitus with diabetic neuropathy, unspecified
CPT/HCPCS: 93308; 71046; 80048; 80053; 81003; 82570; 82962; 84300; 84484; 85025; 93005; 94660; 96360; 96361; 97162; 97165; 99285; G0378

== ENCOUNTER 2023-12-08 11:59 | Outpatient (RCR) | payer OTHER, SELFPAY ==
[2023-11-17 11:14] LABS: Glucose - Point of Care 120 mg/dl (70-99)
[2023-11-17 12:07] LABS: Glucose - Point of Care 97 mg/dl (70-99)
[2023-11-17 12:15] LABS: Glucose - Point of Care 98 mg/dl (70-99)
[2023-11-24 11:12] LABS: Glucose - Point of Care 143 mg/dl (70-99)
[2023-11-24 12:05] LABS: Glucose - Point of Care 99 mg/dl (70-99)
[2023-11-28 11:02] LABS: Glucose - Point of Care 158 mg/dl (70-99)
[2023-11-28 11:56] LABS: Glucose - Point of Care 123 mg/dl (70-99)
[2023-12-01 11:16] LABS: Glucose - Point of Care 159 mg/dl (70-99)
[2023-12-01 12:04] LABS: Glucose - Point of Care 129 mg/dl (70-99)
[2023-12-05 10:58] LABS: Glucose - Point of Care 191 mg/dl (70-99)
[2023-12-05 11:52] LABS: Glucose - Point of Care 130 mg/dl (70-99)
[2023-12-08 11:11] LABS: Glucose - Point of Care 154 mg/dl (70-99)
[2023-12-08 11:59] LABS: Glucose - Point of Care 123 mg/dl (70-99)
== END 2023-12-08 23:59 | disposition home or self-care (01) ==
LOC: CRHB 11:59
PROVIDERS: ATTENDING PHYSICIAN Internal Medicine
DX: I25.10 Atherosclerotic heart disease of native coronary artery without angina pectoris (principal); Z95.1 Presence of aortocoronary bypass graft
CPT/HCPCS: 82962; G0422; G0423

== ENCOUNTER 2024-01-09 11:36 | Outpatient (RCR) | payer OTHER, SELFPAY ==
[2023-12-12 11:02] LABS: Glucose - Point of Care 165 mg/dl (70-99)
[2023-12-12 11:58] LABS: Glucose - Point of Care 130 mg/dl (70-99)
== END 2024-01-09 23:59 | disposition home or self-care (01) ==
LOC: CRHB 11:36
PROVIDERS: ATTENDING PHYSICIAN Internal Medicine
DX: I25.10 Atherosclerotic heart disease of native coronary artery without angina pectoris (principal); Z95.1 Presence of aortocoronary bypass graft
CPT/HCPCS: 82962; G0422; G0423

== ENCOUNTER 2024-02-02 11:17 | Outpatient (RCR) | payer OTHER, SELFPAY | END 2024-02-02 23:59 | disposition home or self-care (01) | LOC: CRHB 11:17 | PROVIDERS: ATTENDING PHYSICIAN Internal Medicine | DX: I25.10 Atherosclerotic heart disease of native coronary artery without angina pectoris (principal); Z95.1 Presence of aortocoronary bypass graft | CPT/HCPCS: G0422; G0423 ==

== ENCOUNTER → 2024-04-21 13:01 | Outpatient (REF) | payer OTHER, SELFPAY | LOC: HWRCS 13:01 | PROVIDERS: ATTENDING PHYSICIAN Internal Medicine; FAMILY PHYSICIAN Internal Medicine | DX: I25.810 Atherosclerosis of coronary artery bypass graft(s) without angina pectoris (principal) | CPT/HCPCS: 93306 ==